=== PATIENT | male | born 1940 | race Caucasian/White ===

== ENCOUNTER 2018-01-30 17:05 | Inpatient (IN) | payer MEDICARE ==
[~2018-01-30] VITALS: Ht 165.1 cm; Wt 91.6 kg
[~2018-01-30 17:05] MED LIST: SPIRIVA18 MCG INH
--- OUTSIDE RECORDS SUMMARY | 2018-01-30 19:06 | XMS REPORT | Clinical Summary ---
Author Author [facility] Organization [facility] Address Unknown Phone Unavailable Care Team Providers Care Headline Writer Name Role Phone Provider, Unknown PCP Unavailable Allergies No Known Allergies Medications End Date Status Medication Sig Dispensed Refills Start Date Active albuterol (PROAIR Inhale 2 0 HFA,PROVENTIL puffs every 6 HFA,VENTOLIN HFA) 90 (six) hours mcg/actuation inhaler as needed for wheezing. Active tiotropium (SPIRIVA) 18 Place 1 0 mcg per inhalation capsule into capsule inhaler and inhale daily. Active budesonide-formoterol Inhale 2 0 (SYMBICORT) 160-4.5 puffs 2 (two) mcg/actuation inhaler times a day. Active bimatoprost (LUMIGAN) Administer 1 0 0.01 % ophthalmic drops drop to the right eye nightly. Active Problems Problem Noted Date Unstable angina 08/18/2016 Acute exacerbation of chronic obstructive pulmonary disease (COPD) 08/18/2016 Social History Date Tobacco Use Types Packs/Day Years Used Current Every Day Smoker Alcohol Use Drinks/Week oz/Week Comments Yes 3 Standard 1.8 drinks or equivalent Sex Assigned at Date Recorded Not on file Industry Job Start Date Occupation Not on file Not on file Not on file Travel End Travel History Travel Start No recent travel history available. Last Filed Vital Signs Not on file Plan of Treatment Health Maintenance Due Date Last Done Comments SHINGLES VACCINES (1 of 10/04/1989 2) PNEUMOCOCCAL 10/04/2004 POLYSACCHARIDE VACCINE AGE 65 AND OVER PNEUMOCOCCAL-13 10/04/2004 INFLUENZA VACCINE 09/13/2017 Results Not on fileafter 01/29/2017 Insurance Payer Benefit Subscriber ID Type Phone Address Plan / Group MEDICARE MEDICARE xxxxxxxxxx Medicare [place], [place] PART A AND B BCBS MEDICARE BLUE xxxxxxxxx HMO MEDICARE ADVANTAGE HMO Advance Directives Patient has advance care planning documents on file. For more information, richelle roberson contact: [facility] [address] [place] [address]
[2018-01-30 20:00] VITALS: BP 148/65
[2018-01-30 20:05] VITALS: BP 148/65
--- NOTE | 2018-01-30 20:05 | NUR ---
PT ARRIVING TO UNIT VIA WHEEL CHAIR, PT ALERT AND ORIENTED, NO DISTRESS NOTED, O2 NC WORN, PT HAS SOB WITH EXERTION, GIRLFRIEND AT BEDSIDE, PT DENIES NEEDS, CALL LIGHT IN REACH, INSTRUCTED TO CALL WITH NEEDS
[2018-01-30] MEDS ORDERED: ZOLPIDEM TARTRATE 5 MG TAB PO PRN (20:15)
[2018-01-30] MEDS: ALBUTEROL SULF 0.083% NEB SOLN 3 ML NEB NEB PRN (20:15)
[2018-01-30] MEDS: METHYLPREDNISOLONE SOD SUCC 125 MG/2ML VIAL IV SCH (21:00)
[2018-01-30] MEDS ORDERED: DOXYCYCLINE HYCLATE 100 MG in SODIUM CHLORIDE 0.9% 100 ML 100 ML IV SCH (21:00)
[2018-01-30] MEDS: METOPROLOL TARTRATE 25 MG TAB PO SCH (21:00)
--- NOTE | 2018-01-30 21:54 | Diagnostic Imaging Report ---
CHEST 2 VIEWS, Technique: CHEST 2 VIEWS Comparison: None Clinical history: COPD exacerbation DISCUSSION: Normal heart size. Prominent tab which may be related to pulmonary arterial hypertension. Hyperinflation with multifocal opacities for example at the lung bases and right middle lobe/lingula. No significant effusion. No pneumothorax. IMPRESSION: Emphysema with multifocal pneumonia. Recommend 6-8 week follow-up. Signed by: Dr Haleigh Silva MD on 01/30/2018 9:50 PM
[2018-01-30 22:00] LABS: BASOPHILS % 0.3 % (0.0-1.0); EOSINOPHILS # (AUTO) 0.2 (0.0-0.4); HEMATOCRIT 38.1 % (38.2-49.6); HEMOGLOBIN 11.7 g/dL (14.0-18.0); LYMPHOCYTES % 21.2 % (18.0-39.1); MEAN CORPUSCULAR HGB CONC 30.7 g/dL (31-35); MEAN CORPUSCULAR VOLUME 91.1 fL (81-99); MONOCYTES # (AUTO) 0.8 (0.2-0.8); NEUTROPHILS # (AUTO) 6.5 (2.1-6.9); NEUTROPHILS % 68.1 % (38.7-80.0); PLATELET COUNT 371 x10e3/uL (140-360); RED BLOOD COUNT 4.18 x10e6/uL (4.3-5.7); RED CELL DISTRIBUTION WIDTH 14.8 % (11.7-14.4)
[2018-01-30 22:20] LABS: ALANINE AMINOTRANSFERASE 18 IU/L (0-55); ALBUMIN 2.8 g/dL (3.5-5.0); ALBUMIN/GLOBULIN RATIO 0.7 (0.8-2.0); ALKALINE PHOSPHATASE 87 IU/L (40-150); ANION GAP 15.4 mmol/L (8-16); BLOOD UREA NITROGEN 17 mg/dL (7-26); BUN/CREATININE RATIO 19 (6-25); CALCIUM 9.7 mg/dL (8.4-10.2); CARBON DIOXIDE 33 mmol/L (22-29); CHLORIDE 97 mmol/L (98-107); CREATININE, SERUM 0.91 mg/dL (0.72-1.25); EST GLOMERULAR FILTRATION RATE > 60 ML/MIN (60-); GLUCOSE 92 mg/dL (74-118); POTASSIUM 4.4 mmol/L (3.5-5.1); SODIUM 141 mmol/L (136-145)
[2018-01-30] MEDS ORDERED: SODIUM CHLORIDE 0.9% 100 ML 100 ML ONE (22:36)
[2018-01-31] VITALS (8 sets, daily range): BP systolic 95–138; BP diastolic 50–88
--- NOTE | 2018-01-31 06:35 | NUR ---
PT RESTING IN BED ALERT AND ORIENTED, NO DISTRESS NOTED, DENIES NEEDS, CALL LIGHT IN REACH, O2 NC WORN HOB ELEVATED, INSTRUCTED TO CALL WITH NEEDS
[2018-01-31] MEDS: BUDESONIDE/FORMOTEROL 160/4.5MCG INHALER INH SCH ×2 (07:30→19:00)
[2018-01-31] MEDS: TIOTROPIUM 18 MCG INH POWDER INH SCH (07:30)
[2018-01-31] MEDS ORDERED: CEFTRIAXONE SOD 1 GM VIAL IV SCH (08:15)
[2018-01-31] MEDS ORDERED: ALBUTEROL SULFATE HFA 8GM INHALATION AEROSOL INH PRN (08:30)
[2018-01-31] MEDS ORDERED: SODIUM CHLORIDE 0.9% 50ML 50 ML ONE ×2 (09:25→17:29)
[2018-01-31] MEDS: CEFTRIAXONE SOD 1 GM/NS 50 ML 50 ML IV SCH ×2 (09:36→21:19)
[2018-01-31] MEDS: METOPROLOL TARTRATE 25 MG TAB PO SCH ×2 (09:36→17:10)
[2018-01-31] MEDS: METHYLPREDNISOLONE SOD SUCC 125 MG/2ML VIAL IV SCH ×2 (09:36→21:15)
--- NOTE | 2018-01-31 09:38 | History and Physical ---
CHIEF COMPLAINT: Congestion and difficulty breathing. HISTORY OF PRESENT ILLNESS: The patient is a 77-year-old man. He has a history of COPD. Uses oxygen at home, as well as Symbicort and Spiriva. Over the past several days to weeks he has noticed increased congestion. He went to see his primary physician and received some antibiotics along with some prednisone with only temporary relief. He also started using his nebulizer more frequently at home with no improvement. PAST MEDICAL HISTORY 1. COPD. 2. Hypertension. 3. Paroxysmal atrial fibrillation. ALLERGIES: THERE ARE NO KNOWN DRUG ALLERGIES. PAST SURGICAL HISTORY: Noncontributory. SOCIAL HISTORY: The patient is a former smoker. He is not an active drinker. FAMILY HISTORY: Noncontributory. REVIEW OF SYSTEMS: The patient reports some fevers at home. He does not complain of headache. He does note some rhinorrhea. He has no sore throat. He notes some cough and congestion. He reports increased dyspnea. He has no chest pain. He is not having any abdominal pain. There is no nausea or vomiting. He has no leg edema. He is not having any focal neurological complaints. PHYSICAL EXAMINATION VITALS: The patient is afebrile. Pulse ox is 98% on 5 L and the pulse rate is 88. The respiratory rate is 18. HEENT: Shows no facial swelling or erythema. The nasal mucosa is normal. The oropharynx is normal. LYMPHATIC: Shows no submandibular, cervical or supraclavicular adenopathy. CARDIAC: Reveals a regular rate and rhythm with a normal S1 and S2. There are no murmurs or rubs. LUNGS: Auscultation of the lungs reveal some rhonchus breath sounds bilaterally. There is some wheezing. ABDOMEN: Soft and nontender. There is no rebound or guarding. EXTREMITIES: Shows no leg edema or calf tenderness. There is no cyanosis or clubbing. SKIN: Shows no rashes. NEUROLOGIC: Shows no focal abnormalities. LABORATORY DATA: The sodium is 141, potassium is 4.4, carbon dioxide 33, and the BUN to creatinine ratio is 17 to 0.9. The albumin is 2.8. White blood cell count is 9.5 and hemoglobin is 11.7. Platelet count is 371,000. RADIOGRAPHIC DATA: Chest x-ray shows emphysema with multifocal pneumonia. IMPRESSION 1. Community-acquired pneumonia with sepsis on admission. 2. Chronic obstructive pulmonary disease with acute exacerbation. 3. Benign prostatic hypertrophy. 4. Hypertension. 5. Anemia, unspecified. PLAN 1. The patient will continue antibiotics for community-acquired pneumonia. 2. Solu-Medrol 60 mg IV q.12 h. 3. Bronchodilators. 4. Legionella antigen. 5. Nasal swab for influenza. Job#: [id number] RI
[2018-01-31] MEDS: AZITHROMYCIN 500MG/NS 250 ML 250 ML IV SCH (10:10)
[2018-01-31] MEDS: ALBUTEROL SULF 0.083% NEB SOLN 3 ML NEB NEB PRN (15:40)
[2018-01-31 15:42] LABS: BILIRUBIN,URINE NEGATIVE (NEGATIVE); CLARITY,URINE SL CLOUDY (CLEAR); COLOR,URINE YELLOW (YELLOW); KETONES,URINE NEGATIVE (NEGATIVE); LEUKOCYTE ESTERASE ,URINE NEGATIVE (NEGATIVE); NITRITE,URINE NEGATIVE (NEGATIVE); PROTEIN,URINE DIPSTICK NEGATIVE (NEGATIVE); URINE UROBILINOGEN 1 mg/dL (0.2 - 1)
[2018-01-31 15:51] LABS: BACTERIA,URINE MODERATE /HPF; EPITHELIAL CELLS,URINE FEW /LPF
--- NOTE | 2018-01-31 16:12 | Diagnostic Imaging Report ---
EXAM: CT Chest WITH contrast INDICATION: Shortness of breath/pneumonia COMPARISON: 01/30/2018 radiograph, no report available TECHNIQUE: The Chest was scanned utilizing a multidetector helical scanner after administration of IV contrast. Coronal and sagittal reformations were obtained. IV CONTRAST: 100 mL Isovue-370 COMPLICATIONS: None RADIATION DOSE: Total DLP: 583 mGy*cm Estimated effective dose: (DLP x 0.015 x size factor) mSv CTDIvol has been reviewed. It is below the limits set by the Radiation Protocol Committee (RPC). Appropriate CT dose reduction techniques were utilized. FINDINGS: Lines and Tubes: None. Lower Neck: No acute findings. Heart and Great Vessels: The aorta and main pulmonary artery measure 36 and 30 mm. respectively. Advanced vascular calcifications. No pericardial effusion. Lymph Nodes: No suspicious adenopathy. Lungs: No pneumothorax. Trachea and central bronchi are unremarkable. There is mild scattered peripheral bronchial wall thickening. Moderate centrilobular emphysematous changes are present. Scattered bilateral patchy alveolar opacities are present in all 5 lobes. Minimal mucus present in the trachea. Upper abdomen: Nodularity left adrenal gland. Bones and Soft Tissues: No acute findings. IMPRESSION: 1. Scattered bilateral alveolar opacities suggesting multifocal pneumonia superimposed on moderate emphysematous changes. Signed by: Dr. Carter Brandon MD on 01/31/2018 4:09 PM
--- NOTE | 2018-01-31 17:02 | NUR ---
Nutrition Screen Note RD Recommendation for Physician: -Continue cardiac diet as tolerated -Pt is not interested in diet education. 01/31 Plan of Care: RD following, monitoring for tolerance and adequacy Nutrition reason for involvement: MD consult no reason stated Primary Diagnose(s): 1. Community-acquired pneumonia with sepsis on admission. 2. Chronic obstructive pulmonary disease with acute exacerbation. PMH: COPD, HTN, A fib Ht: 65in Wt: 220lb BMI: 36.6kg/m2 IBW: 130lb RD Assessment: (01/31) Chart reviewed. Labs and meds reviewed. 77 yo M, who is admitted for cough and breathing difficulty. Visited pt in the room. Pt reports good appetite with ~100% recorded meal intake. No GI complains noted. LBM 01/29, normal per pt. Pt denies any chewing or swallowing difficulty. No recent weight loss reported. Pt is not interested in any diet education. Will continue to monitor and follow. Current Diet: cardiac diet Malnutrition Evaluation (01/31/2018) The patient does not meet criteria for a specified degree of malnutrition at this time. Will re-evaluate at follow-up as appropriate. Diet Education Needs Assessment: Diet education indicated, pt is not interested. Nutrition Care Level: low Signed: Donna Montanez, MS, RD, LD
[2018-01-31] MEDS ORDERED: IOPAMIDOL 370 MG/ML 200 ML INFUS..BTL INJ ONE (17:30)
[2018-02-01] VITALS (8 sets, daily range): BP systolic 103–135; BP diastolic 54–63
[2018-02-01] MEDS: TIOTROPIUM 18 MCG INH POWDER INH SCH (06:00)
[2018-02-01] MEDS: BUDESONIDE/FORMOTEROL 160/4.5MCG INHALER INH SCH ×2 (07:00→20:10)
--- NOTE | 2018-02-01 07:15 | NUR ---
REPORT GIVEN TO ONCOMING NURSE.PT RESTING IN BED WITH NO S/S OF DISTRESS.
[2018-02-01] MEDS ORDERED: TAMSULOSIN HCL 0.4 MG CAP PO ONE (08:00)
--- NOTE | 2018-02-01 08:14 | Consultation ---
DATE OF CONSULTATION: February 01, 2018 UROLOGY CONSULTATION REASON FOR CONSULTATION: Urinary frequency. HISTORY OF PRESENT ILLNESS: Manav Nelson is a 77-year-old man who has never seen a urologist. The patient has some decreased urinary force of stream, and was treated with a blue pill by the [place] for prostate enlargement. The pill did not do anything for him and he quit it. He also failed getting any relief from lzhc-woj-[id number] prostate "medications." The patient denies urinary incontinence. He does have nocturia. The patient is currently admitted for COPD exacerbation. Urological consultation was sought for his voiding symptomatology. PAST MEDICAL AND SURGICAL HISTORY 1. 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 2. COPD. 3. Hypertension. 4. Paroxysmal atrial fibrillation. 5. Coronary artery disease, status post PTCA and stent. ALLERGIES: NONE KNOWN. CURRENT MEDICATIONS: Refer to the MAR. SOCIAL HISTORY: The patient was an extremely heavy smoker of 2-3 packs per day for over 50 years. He smokes much less now. He denies ethanol and drug use. 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 He also served 2 years in [employer]. FAMILY HISTORY: Noncontributory to the active urological problems. REVIEW OF SYSTEMS: As discussed above in the history of present illness and past medical history. Otherwise, negative for all other systems. PHYSICAL EXAMINATION GENERAL: A very pleasant 77-year-old man lying in bed in no apparent distress. VITALS: He is currently afebrile. Vital signs are currently stable. ABDOMEN: Soft, nondistended and nontender. It is obese without costovertebral angle tenderness. Kidneys are not palpable without hepatosplenomegaly. No obvious evidence of hernia. GENITOURINARY: Testes are descended bilaterally. Testes are bilaterally nontender without any mass. The patient has a normal uncircumcised male phallus with normal meatus without any lesions. There is clear yellow urine in the urinal next to the bed. There is a small sebaceous cyst in the perineum, but does not involve the scrotum. For the remaining physical examination systems, please refer to the admission history and physical on the chart. LABORATORY STUDIES: Blood cultures are negative so far. White blood cell count is 9490, hemoglobin 11.7 and platelets 371,000. The patient's creatinine is 0.91. Urinalysis significant for 2+ glucose and "moderate" bacteria, but there is no wbcs and no rbcs. The patient's glucose was normal on BMP. There is no urologically specific imaging in the electronic medical record at this time. The patient does have left adrenal nodularity. ASSESSMENT 1. Urinary frequency. 2. Decreased urinary force of stream. 3. Presumed BPH. 4. Nocturia. 5. Obesity. 6. Small sebaceous cyst in the perineum. 7. Anemia. 8. Glycosuria. 9. Possible urinary tract infection with bacteruria noted. 10. Left adrenal nodularity. PLAN 1. I will start the patient on Flomax. 2. I will order a urine culture. 3. Once the patient leaves, I have instructed him to follow up to see me in about a month for a flow rate in our office at which point in time will begin assessing the patient's voiding objectively. Thank you very much for involving us in the care of your patient. Will be happy to follow him along with you, as well as an outpatient. Job#: [id number] ANA
[2018-02-01] MEDS: METOPROLOL TARTRATE 25 MG TAB PO SCH ×2 (08:54→17:14)
[2018-02-01] MEDS: CEFTRIAXONE SOD 1 GM/NS 50 ML 50 ML IV SCH ×2 (08:54→20:52)
[2018-02-01] MEDS: METHYLPREDNISOLONE SOD SUCC 125 MG/2ML VIAL IV SCH ×2 (08:54→20:50)
[2018-02-01] MEDS: AZITHROMYCIN 500MG/NS 250 ML 250 ML IV SCH (09:18)
--- NOTE | 2018-02-01 10:30 | NUR ---
pt complaints fo fpain 04/22 to the right upper chest . not radiating. pt states he has this pain at home at times and uses nitro tabs for relieve. paging md for further orders
--- NOTE | 2018-02-01 10:39 | NUR ---
SPOKE WITH MD ZARCO REGARDING CP. NEW ORDERS RECEIVED
[2018-02-01] MEDS ORDERED: NITROGLYCERIN 0.4 MG SUBL SL PRN (10:45)
--- NOTE | 2018-02-01 11:07 | NUR ---
PT STATES HIS PAIN AT THIS TIME IS TOLERABLE 3/10 WILL CALL IF NEEDING NITRO AT THIS TIME. EKG DONE. READINGS SHOW SR
--- NOTE | 2018-02-01 19:06 | Consultation ---
DATE OF CONSULTATION: February 01, 2018 CARDIOLOGY CONSULTATION Thank you so much for asking me to see this nice man in consultation. HISTORY OF PRESENT ILLNESS: Mr. Nelson is a complex 77-year-old man who was admitted with a complaint of shortness of breath and chest and abdominal discomfort. The patient reports that he has been feeling ill, short of breath and chest and abdominal discomfort would awake him from sleep, and also especially after coughing. PAST SURGICAL HISTORY: Is long and complex. He tells me that he had a resection of a cancer from the lower lip in December at the [facility] with right neck dissection which also showed malignancies. PAST MEDICAL HISTORY: Also significant for multiple cardiac catheterizations. He reports he had a coronary stent implanted about 10 years ago. More recent cardiac catheterizations 4 or 5 times have shown stable coronary disease which he reports the last one being in [place] in 2017. SOCIAL HISTORY: He continues to smoke. CURRENT MEDICATIONS: At home include albuterol, azithromycin, ceftriaxone, methylprednisolone, metoprolol, nitroglycerin, Spiriva hand inhaler and Ambien. He has reported to have intermittent atrial fibrillation. PHYSICAL EXAMINATION: Shows an alert and oriented, talkative white man. VITALS: Blood pressure is 119/59. HEENT: Shows the right lower lip with healed incisions and deformities. NECK: Shows right neck dissection. THORAX: Heart sounds, S1 and S2 are equal but distant. No murmurs audible. LUNGS: Have distant breath sounds with faint rhonchi. ABDOMEN: Protuberant. Normal bowel sounds. EXTREMITIES: No cyanosis, clubbing or edema. EKG shows sinus rhythm without ST or T-wave changes. Chest x-ray shows emphysematous changes and infiltrates suggesting possible multifocal pneumonia. His echocardiogram on the chart technical report suggests good left ventricular function, mild concentric left ventricular hypertrophy. ASSESSMENT: 1. Chronic obstructive pulmonary disease and pneumonia. 2. Previously known coronary disease with multiple cardiac catheterizations, current chest and abdominal discomfort likely represent musculoskeletal pain associated with his lung disease. PLAN: Will review his studies and monitor him closely with you. His prognosis is guarded. Thank you for asking me to see him in consultation. Job#: [id number]
[2018-02-01] MEDS: ALBUTEROL SULF 0.083% NEB SOLN 3 ML NEB NEB SCH (20:10)
[2018-02-01] MEDS: TAMSULOSIN HCL 0.4 MG CAP PO SCH (20:52)
[2018-02-02] VITALS (7 sets, daily range): BP systolic 123–139; BP diastolic 59–63
[2018-02-02] MEDS: ALBUTEROL SULF 0.083% NEB SOLN 3 ML NEB NEB SCH ×4 (01:20→19:00)
[2018-02-02] MEDS: TIOTROPIUM 18 MCG INH POWDER INH SCH (06:00)
[2018-02-02 06:07] LABS: HEMATOCRIT 36.4 % (38.2-49.6); LYMPHOCYTES % 11.6 % (18.0-39.1); MEAN CORPUSCULAR HEMOGLOBIN 27.2 pg (28-32); MEAN CORPUSCULAR HGB CONC 30.2 g/dL (31-35); MEAN CORPUSCULAR VOLUME 89.9 fL (81-99); MONOCYTES # (AUTO) 0.3 (0.2-0.8); MONOCYTES % 3.1 % (4.4-11.3); NEUTROPHILS # (AUTO) 6.9 (2.1-6.9); NEUTROPHILS % 84.6 % (38.7-80.0); PLATELET COUNT 327 x10e3/uL (140-360); RED BLOOD COUNT 4.05 x10e6/uL (4.3-5.7); RED CELL DISTRIBUTION WIDTH 14.6 % (11.7-14.4)
[2018-02-02 06:23] LABS: ALANINE AMINOTRANSFERASE 25 IU/L (0-55); ALBUMIN 2.6 g/dL (3.5-5.0); ALBUMIN/GLOBULIN RATIO 0.8 (0.8-2.0); ALKALINE PHOSPHATASE 59 IU/L (40-150); ANION GAP 11.7 mmol/L (8-16); BLOOD UREA NITROGEN 20 mg/dL (7-26); BUN/CREATININE RATIO 27 (6-25); CALCIUM 9.2 mg/dL (8.4-10.2); CARBON DIOXIDE 31 mmol/L (22-29); CHLORIDE 98 mmol/L (98-107); CREATININE, SERUM 0.73 mg/dL (0.72-1.25); EST GLOMERULAR FILTRATION RATE > 60 ML/MIN (60-); GLUCOSE 125 mg/dL (74-118); POTASSIUM 4.7 mmol/L (3.5-5.1); SODIUM 136 mmol/L (136-145)
[2018-02-02] MEDS: BUDESONIDE/FORMOTEROL 160/4.5MCG INHALER INH SCH ×2 (07:00→19:00)
--- NOTE | 2018-02-02 07:25 | NUR ---
REPORT GIVEN TO ONCOMING NURSE,WALKING ROUNDS MADE.PT RESTING IN BED WITH NO S/S OF DISTRESS NOTED.
[2018-02-02] MEDS: METHYLPREDNISOLONE SOD SUCC 125 MG/2ML VIAL IV SCH ×2 (09:30→20:40)
[2018-02-02] MEDS: METOPROLOL TARTRATE 25 MG TAB PO SCH ×2 (09:30→16:55)
[2018-02-02] MEDS: AZITHROMYCIN 500MG/NS 250 ML 250 ML IV SCH (09:30)
[2018-02-02] MEDS: CEFTRIAXONE SOD 1 GM/NS 50 ML 50 ML IV SCH ×2 (09:30→20:41)
--- NOTE | 2018-02-02 09:30 | NUR ---
assessment complete no distress noted updated on poc voiced understanding, denies pain at this time, o2 @ 3L nc, l ac 20g no ss of infiltration noted, no other co voiced call light in reach will continue to monitor
--- NOTE | 2018-02-02 11:18 | NUR ---
CASE MANAGEMENT INITIAL ASSESSMENT Facility Mechanic to bedside to discuss plan of care with patient/family. CM/SW role and care transitions discussed. Anticipated discharge plan discussed along with duration of care. CM/SW discussed patients right to make decisions in care. CM/SW work hours given. Patient lives: ALONE Admit/Transfer: DIRECT ADMIT DR Cydney ZARCO POA/Emergency contact: GIRLFRIEND ELVA JACKSON [phone] Current/Previous Home Health:NONE PCP/Follow-up Care: DR Cydney ZARCO Current/Previous DME: WALKER, WHEELCHAIR, ELECTRIC SCOOTER, OXYGEN 24/7 AND NEBULIZER Other Services: NONE Employment Status: SELF EMPLOYED Areas of Concerns: NONE Referral Needs: PULMONARY REHAB Education Needs: WELL EDUCATED ON COPD IMM/TRIPP given and signed (if applicable): TRIPP AND IMM SIGNED Goal for discharge:HOME CM/SW left business card at the bedside with contact information. Name and number was also written on the patients whiteboard. Patient verbalized understanding of discussion. CM will follow-up with ongoing discharge and transition of care needs.
[2018-02-02] MEDS: TAMSULOSIN HCL 0.4 MG CAP PO SCH (20:41)
[2018-02-03] VITALS: BP 138/62
[2018-02-03] MEDS: ALBUTEROL SULF 0.083% NEB SOLN 3 ML NEB NEB SCH ×2 (01:00→07:00)
[2018-02-03 04:00] VITALS: BP 142/66
--- NOTE | 2018-02-03 07:09 | NUR ---
REPORT GIVEN TO ONCOMING NURSE.WALKING ROUNDS MADE.PT RESTING IN BED WITH NO S/S OF DISTRESS.
[2018-02-03] MEDS: BUDESONIDE/FORMOTEROL 160/4.5MCG INHALER INH SCH (07:37)
[2018-02-03] MEDS: TIOTROPIUM 18 MCG INH POWDER INH SCH (07:37)
[2018-02-03] MEDS ORDERED: FLOMAX0.4 MG PO (08:00)
[2018-02-03] MEDS ORDERED: CEFDINIR300 MG PO (08:01)
[2018-02-03] MEDS ORDERED: PREDNISONE10 MG PO (08:03)
[2018-02-03] MEDS: AZITHROMYCIN 500MG/NS 250 ML 250 ML IV SCH (09:00)
[2018-02-03] MEDS: CEFTRIAXONE SOD 1 GM/NS 50 ML 50 ML IV SCH (09:00)
[2018-02-03 09:08] VITALS: BP 118/58
--- NOTE | 2018-02-03 09:36 | Discharge Summary ---
DISCHARGE DIAGNOSES 1. Community-acquired pneumonia with sepsis present on admission. 2. Chronic obstructive pulmonary disease with acute exacerbation. 3. Chest pain, unspecified. 4. Benign prostatic hypertrophy with urinary retention. 5. Hypertension. 6. Anemia, unspecified. CONSULTING PHYSICIANS 1. Dr. Tellez of Cardiology. 2. Dr. Cruz of Urology. RADIOGRAPHIC DATA: CT scan of the chest shows scattered bilateral alveolar opacities suggesting multifocal pneumonia. These changes are superimposed on chronic emphysema. DISCHARGE MEDICATIONS Spiriva 18 mcg by mouth daily. Symbicort 160/4.5 mcg, one puff b.i.d. Omnicef 300 mg p.o. b.i.d. Prednisone tapered. Flomax 0.4 mg p.o. q. day. Albuterol nebulizer as needed. HISTORY OF PRESENT ILLNESS: The patient is a 77-year-old man. He has a history of severe COPD. He uses oxygen at home as well as Symbicort and Spiriva. He noticed increased congestion and wheezing. He received some antibiotics and prednisone from his primary care physician, but only temporary relief. He also tried using nebulizers with only mild relief. HOSPITAL COURSE: The patient was admitted. His x-rays show findings consistent with multifocal pneumonia. He had an elevated pulse rate of 96 to 100 on admission and an elevated respiratory rate of 20 to 24. He was started on IV antibiotics along with bronchodilators and oxygen. He also received Solu-Medrol for COPD exacerbation. The patient complained of urinary retention. He was seen by Urology who diagnosed prostatic hypertrophy with some urinary retention. He will begin Flomax and will follow up with the urologist as an outpatient. The patient also complained of chest pain. He claimed that it was relieved with sublingual nitroglycerin, but was not related to exercise. He was seen by Cardiology. Cardiology did an echocardiogram. It showed some left ventricular hypertrophy and mild valvular abnormalities. EKGs were normal. The patient's prior cardiac workup showed no evidence of coronary artery disease. DISPOSITION: The patient will be discharged home and he will follow up with Dr. Burton in 7 to 10 days. SOPHIE BURTON MD Job#: [id number] SANAM
[2018-02-03 09:44] VITALS: BP 118/58
[2018-02-03] MEDS: METHYLPREDNISOLONE SOD SUCC 125 MG/2ML VIAL IV SCH (09:44)
[2018-02-03] MEDS: METOPROLOL TARTRATE 25 MG TAB PO SCH (09:44)
--- NOTE | 2018-02-03 09:44 | NUR ---
ASSESSMENT COMPLETE NO DISTRESS NOTED, DENIES PAIN AT THIS TIME, L AC 20G NO SS OF INFILTRATION NOTED, NO OTHER CO VOICED CALL LIGHT IN REACH WILL CONTINUE TO MONITOR
--- NOTE | 2018-02-03 09:45 | NUR ---
PT BEING DISCHARGED, PT REFUSED ANTIBIOTICS AT THIS TIME, MD DR ZARCO INFORMED.
== END 2018-02-03 10:30 | disposition home or self-care (01) | DRG 871 ==
LOC: MED/SURG 19:04 → OBSVTOIN 01-31 08:24
PROVIDERS: ADMIT Internal Medicine Critical Care Medicine; ATTEND Internal Medicine Critical Care Medicine
DX: A41.9 Sepsis, unspecified organism (principal); J18.9 Pneumonia, unspecified organism; J44.0 Chronic obstructive pulmonary disease with (acute) lower respiratory infection; J44.1 Chronic obstructive pulmonary disease with (acute) exacerbation; I10 Essential (primary) hypertension; I48.0 Paroxysmal atrial fibrillation; Z87.891 Personal history of nicotine dependence; D64.9 Anemia, unspecified; I25.10 Atherosclerotic heart disease of native coronary artery without angina pectoris; Z95.5 Presence of coronary angioplasty implant and graft; Z85.819 Personal history of malignant neoplasm of unspecified site of lip, oral cavity, and pharynx; N40.1 Benign prostatic hyperplasia with lower urinary tract symptoms; R35.0 Frequency of micturition; R35.1 Nocturia; R39.12 Poor urinary stream; E66.9 Obesity, unspecified; L72.3 Sebaceous cyst; R33.8 Other retention of urine; Z68.33 Body mass index [BMI] 33.0-33.9, adult; R07.9 Chest pain, unspecified
CPT/HCPCS: 36415; 71046; 71260; 80053; 81001; 85025; 87040; 87070; 87086; 87205; 87400; 87449; 93005; 93306; 94640; G0378; J0456; J0696; J2930; Q9967

== ENCOUNTER 2018-08-09 11:00 | Outpatient (RCR) | payer MEDICARE ==
[~2018-08-09 11:00] MED LIST changes: +CEFDINIR300 MG PO; +FLOMAX0.4 MG PO; +LIDOCAINE/PRILOCAINE 2.5-2.5% KIT ONE; +PREDNISONE10 MG PO
[2018-08-09 11:41] LABS: BASOPHILS % 0.4 % (0.0-1.0); EOSINOPHILS # (AUTO) 0.2 (0.0-0.4); EOSINOPHILS % 2.5 % (0.0-6.0); HEMATOCRIT 45.5 % (38.2-49.6); HEMOGLOBIN 14.7 g/dL (14.0-18.0); LYMPHOCYTES # (AUTO) 1.5 (1.0-3.2); LYMPHOCYTES % 21.9 % (18.0-39.1); MEAN CORPUSCULAR HEMOGLOBIN 28.3 pg (28-32); MEAN CORPUSCULAR HGB CONC 32.3 g/dL (31-35); MEAN CORPUSCULAR VOLUME 87.7 fL (81-99); MONOCYTES # (AUTO) 0.6 (0.2-0.8); MONOCYTES % 8.3 % (4.4-11.3); NEUTROPHILS # (AUTO) 4.5 (2.1-6.9); NEUTROPHILS % 66.6 % (38.7-80.0); PLATELET COUNT 170 x10e3/uL (140-360); RED BLOOD COUNT 5.19 x10e6/uL (4.3-5.7); RED CELL DISTRIBUTION WIDTH 16.2 % (11.7-14.4)
[2018-08-09 11:59] LABS: ALANINE AMINOTRANSFERASE 12 IU/L (0-55); ALBUMIN 3.5 g/dL (3.5-5.0); ALBUMIN/GLOBULIN RATIO 1.2 (0.8-2.0); ALKALINE PHOSPHATASE 57 IU/L (40-150); ANION GAP 14.4 mmol/L (8-16); BLOOD UREA NITROGEN 16 mg/dL (7-26); BUN/CREATININE RATIO 21 (6-25); CALCIUM 9.2 mg/dL (8.4-10.2); CARBON DIOXIDE 29 mmol/L (22-29); CHLORIDE 99 mmol/L (98-107); CREATININE, SERUM 0.77 mg/dL (0.72-1.25); EST GLOMERULAR FILTRATION RATE > 60 ML/MIN (60-); GLUCOSE 90 mg/dL (74-118); POTASSIUM 4.4 mmol/L (3.5-5.1); SODIUM 138 mmol/L (136-145)
== END 2018-08-12 ==
LOC: WCC 11:00
PROVIDERS: ATTEND Family Medicine Adult Medicine
DX: S81.801A Unspecified open wound, right lower leg, initial encounter (principal); R60.0 Localized edema; J18.9 Pneumonia, unspecified organism; I10 Essential (primary) hypertension; D64.9 Anemia, unspecified; I25.10 Atherosclerotic heart disease of native coronary artery without angina pectoris; J44.9 Chronic obstructive pulmonary disease, unspecified; W45.8XXA Other foreign body or object entering through skin, initial encounter
CPT/HCPCS: 36415; 80053; 84134; 85025

== ENCOUNTER 2018-09-11 11:24 | Outpatient (RCR) | payer MEDICARE ==
[~2018-09-11 11:24] MED LIST changes: +LIDOCAINE VISC 2% SOLN 15 ML UDC ONE; +MINERAL OIL/PETROLAT/GLYCERI 2OZ CRM ONE; +MINERAL OIL/PETROLAT/GLYCERI 6OZ BTL ONE
== END 2018-09-12 ==
LOC: WCC 11:24
PROVIDERS: ATTEND Family Medicine Adult Medicine
DX: S81.801A Unspecified open wound, right lower leg, initial encounter (principal); R60.0 Localized edema; I10 Essential (primary) hypertension; J44.9 Chronic obstructive pulmonary disease, unspecified; J18.9 Pneumonia, unspecified organism; D64.9 Anemia, unspecified; I25.10 Atherosclerotic heart disease of native coronary artery without angina pectoris; W45.8XXA Other foreign body or object entering through skin, initial encounter

== ENCOUNTER 2019-09-16 09:52 | Emergency (ER) | payer MEDICARE ==
[~2019-09-16] VITALS: Ht 165.1 cm; Wt 91.6 kg
[~2019-09-16 09:52] MED LIST changes: -LIDOCAINE VISC 2% SOLN 15 ML UDC ONE; -LIDOCAINE/PRILOCAINE 2.5-2.5% KIT ONE; -MINERAL OIL/PETROLAT/GLYCERI 2OZ CRM ONE; -MINERAL OIL/PETROLAT/GLYCERI 6OZ BTL ONE
[2019-09-16 10:14] LABS: BASOPHILS % 0.2 % (0.0-1.0); EOSINOPHILS % 0.3 % (0.0-6.0); HEMATOCRIT 43.7 % (38.2-49.6); HEMOGLOBIN 11.7 g/dL (14.0-18.0); LYMPHOCYTES # (AUTO) 1.6 (1.0-3.2); LYMPHOCYTES % 16.1 % (18.0-39.1); MEAN CORPUSCULAR HEMOGLOBIN 26.4 pg (28-32); MEAN CORPUSCULAR HGB CONC 26.8 g/dL (31-35); MEAN CORPUSCULAR VOLUME 98.4 fL (81-99); MONOCYTES % 9.8 % (4.4-11.3); NEUTROPHILS # (AUTO) 7.1 (2.1-6.9); NEUTROPHILS % 73.1 % (38.7-80.0); PLATELET COUNT 193 x10e3/uL (140-360); RED BLOOD COUNT 4.44 x10e6/uL (4.3-5.7); RED CELL DISTRIBUTION WIDTH 15.2 % (11.7-14.4)
--- OUTSIDE RECORDS SUMMARY | 2019-09-16 10:17 | XMS REPORT | Clinical Summary ---
Author Author [facility] Address Unknown Phone Unavailable Care Team Providers Care Principal Systems Engineer Name Role Phone Provider, Unknown PCP Unavailable [...] 08/18/2016 Acute exacerbation of chronic obstructive pulmonary d isease (COPD) 08/18/2016 Social History Date Tobacco Use Types Packs/Day Years Used Current Every Day Smoker Drinks/Week oz/Week Comments Alcohol Use 3 Standard drinks or equivalent 3.0 Yes Sex Assigned at Date Recorded Not on file Industry Job Start Date Occupation Not on file Not on file Not on file Travel End Travel History Travel Start No recent travel history available. Last Filed Vital Signs Not on file Plan of Treatment Health Maintenance Due Date Last Done Comments SHINGLES VACCINES (#1) 10/04/1989 65+ PNEUMOCOCCAL VACCINE 10/04/2004 (1 of 2 - PCV13) INFLUENZA VACCINE 09/14/2019 Results Not on fileafter 09/15/2018 Insurance Type Payer Benefit Subscriber ID Effective Phone Address Plan / Dates Group Medicare MEDICARE MEDICARE xxxxxxxxxx 2015- [place], PART A AND Present [place] B HMO BCBS MEDICARE BLUE xxxxxxxxx 2016-P MEDICARE resent ADVANTAGE HMO Advance Directives For more information, please contact: [phone] Patient Full Roll Inspector Explanation Type Date Recorded Advance Directives, 05/14/2015 1:58 PM Living Will and Medical Power of Foot And Ankle Surgeon Advance Directives, 08/04/2015 4:21 PM Living Will and Medical Power of Foot And Ankle Surgeon Advance Directives, 01/27/2016 11:27 AM Living Will and Medical Power of Foot And Ankle Surgeon Advance Directives, 08/18/2016 9:53 AM Living Will and Medical Power of Foot And Ankle Surgeon
--- OUTSIDE RECORDS SUMMARY | 2019-09-16 10:19 | XMS REPORT | Continuity of Care Document ---
Author Author [facility] t Organization [facility] Address [address] [place] [address] Phone Unavailable Care Team Providers Care Retort Unloader Name Role Phone Tara BONILLA MD PCP SOPHIE ZARCO Attphys Unavailable SOPHIE ZARCO Admphys Unavailable Payers Payer Name Policy Type Policy Number Effective Date Expiration Date Kavita Paz Medicare Replacement [id number] 2017 00:00:00 [facility] Problems Condition Name Condition Details Condition Category Status Onset Date Resolution Date Last Treatment Date Treating Clinician Comments Source Unstable angina Unstable angina Disease Active 2016-08-18 00:00:00 Hung Garza Acute exacerbation of chronic obstructive pulmonary di sease (COPD) Acute exacerbation of chronic obstructive pulmonary disease (COPD) Disease Active 2016-08-18 00:00:00 Hung Garza Allergies, Adverse Reactions, Alerts Allergy Name Allergy Type Status Severity Reaction(s) Onset Date Inacti ve Date Treating Clinician Comments Source No Known Allergies DA Active U 2019-06-07 00:00:00 [facility] No Known Allergies DA Active U 2018-07-19 00:00:00 [facility] nitroglycerin DA Active SV 2008-09-11 00:00:00 [facility] Social History Social Habit Start Date Stop Date Quantity Comments Source Sex Assigned At Joseph ston Denominational Alcohol intake 2016-08-18 00:00:00 2016-08-18 00:00:00 Current drinker of alcohol (finding) Hung Garza Smoking Status Start Date Stop Date Source Current every day smoker 2016-08-18 00:00:00 Joseph Garza Medications Ordered Medication Name Filled Medication Name Start Date Stop Da te Current Medication? Ordering Clinician Indication Dosage Frequency Signature (SIG) Comments Components Source albuterol (PROAIR HFA,PROVENTIL HFA,VENTOLIN HFA) 90 mcg/act uation inhaler 2016-08-18 18:31:50 Yes 2{puff} Q6H Inhale 2 puffs every 6 (six) hours as needed for wheezing. Hung Garza tiotropium (SPIRIVA) 18 mcg per inhalation capsule 2016-08 18:31:50 Yes 1{capsule} QD Place 1 capsule into inhaler and inhale daily. Hung Garza budesonide-formoterol (SYMBICORT) 160-4.5 mcg/actuation inha ler 2016-08-18 18:31:50 Yes 2{puff} Q.5D Inhale 2 puffs 2 (two) times a day. Hung Garza bimatoprost (LUMIGAN) 0.01 % ophthalmic drops 2016-08-18 18:31:5 0 Yes 1[drp] QD Administer 1 drop to the right eye nightly. Hung Garza Cefdinir (Omnicef) 300 Mg Capsule Cefdinir (Omnicef) 300 Mg Capsule Yes 1 Twice A Day [facility] Prednisone 10 Mg Tab Prednisone 10 Mg Tab Yes 10 Use As Directed [facility] Tamsulosin Hcl (Flomax*) 0.4 Mg Cap Tamsulosin Hcl (Flomax*) 0.4 Mg C ap Yes .4 Daily [facility] Tiotropium [place] (Spiriva) 18 Mcg Cap.w.dev Tiotropi um [place] (Spiriva) 18 Mcg Cap.w.dev Yes 18 [facility] Procedures Procedure Date / Time Performed Performing Clinician Moose e Computed tomography of chest with contrast 2018-01-31 00:00:00 H SOPHIE ZULUAGA [facility] X-ray of chest, two views 2018-01-30 00:00:00 SOPHIE ZARCO CH I [facility] Plan of Care Planned Activity Planned Date Details Comments Source Future Scheduled Test 2019-09-14 00:00:00 INFLUENZA VACCINE [code = INFLUENZA VACCINE] Hung Garza Future Scheduled Test 2004-10-04 00:00:00 65+ PNEUMOCOCCAL V ACCINE (1 of 2 - PCV13) [code = 65+ PNEUMOCOCCAL VACCINE (1 of 2 - PCV13)] [facility] 1989-10-04 00:00:00 SHINGLES VACCINES (#1) [code = SHINGLES VACCINES (#1)] Persaud Denominational Encounters Start Date/Time End Date/Time Encounter Type Admission Type Attendi [facility] Care Department Encounter ID Source 2018-09-11 11:24:00 2018-09-12 23:59:00 Discharged Recurring [facility] [id number] [facility] 2018-08-02 11:00:00 2018-08-12 23:59:00 Discharged Recurring [facility] [id number] [facility] 2018-01-31 08:24:00 2018-02-03 10:30:00 Discharged Inpatient 3 SOPHIE ZARCO [facility] [id number] [facility] Results Test Description Test Time Test Comments Results Result Comments Source ARTERIAL BLOOD GAS 2019-07-30 15:43:00 Test Item ARTERIAL BLOOD GAS PH (test code = PHA) 7.259 7.35-7.45 L ARTERIAL BLOOD GAS PCO2 (test code = PCO2A) 58.8 mmHg 35-45 H ARTERIAL BLOOD GAS PO2 (test code = PO2A) 89 mmHg 80-100 N BICARBONATE TOTAL HCO3 (test code = HCO3) 26.5 mmol/L 22.0-26.0 H BASE EXCESS (test code = HARRY) -1.0 mmol/L -4-4 N ABG O2 SATURATION (test code = SATA) 95 % 90-100 N ABG DELIVERY (test code = GWENDOLYN) Cannula ABG TEMPERATURE (test code = TEMPA) 98.0 F ABG SITE (test code = SITEA) R Rad TCO2 ARTERIAL (test code = TCO2A) 28 ARTERIAL BLOOD [id number] 10:01:00* Test Item Value Reference Range Interpretation Comments ARTERIAL BLOOD GAS PH (test code = PHA) 7.193 7.35-7.45 L L ARTERIAL BLOOD GAS PCO2 (test code = PCO2A) 79.8 mmHg 35-45 HH ARTERIAL BLOOD GAS PO2 (test code = PO2A) 24 mmHg 80-100 LL BICARBONATE TOTAL HCO3 (test code = HCO3) 30.7 mmol/L 22.0-26.0 H BASE EXCESS (test code = HARRY) 3.0 mmol/L -4-4 N ABG O2 SATURATION (test code = SATA) 29 % 90-100 L FIO2 (test code = FIO2A) 40 % ABG DELIVERY (test code = GWENDOLYN) Bipap ABG VENT RESP RATE (test code = RRA) 20 /MIN Performed by certified ballast cleaning machine operator at [facility] ABG TEMPERATURE (test code = TEMPA) 37.0 F ABG SITE (test code = SITEA) L Rad PREDICTED AA GRADIENT (test code = AP) 49 PREDICTED PO2 (test code = OP) 140 a/A RATIO (test code = RATIO) 0.13 TCO2 ARTERIAL (test code = TCO2A) 33 A-A GRADIENT (test code = AAGRADE) 166 ARTERIAL BLOOD [id number] 08:08:00* Test Item Value Reference Range Interpretation Comments ARTERIAL BLOOD GAS PH (test code = PHA) 7.241 7.35-7.45 L L ARTERIAL BLOOD GAS PCO2 (test code = PCO2A) 68.2 mmHg 35-45 H ARTERIAL BLOOD GAS PO2 (test code = PO2A) 95 mmHg 80-100 N BICARBONATE TOTAL HCO3 (test code = HCO3) 29.5 mmol/L 22.0-26.0 H BASE EXCESS (test code = HARRY) 2.0 mmol/L -4-4 N ABG O2 SATURATION (test code = SATA) 96 % 90-100 N ABG DELIVERY (test code = GWENDOLYN) Cannula ABG TEMPERATURE (test code = TEMPA) 97.7 F ABG SITE (test code = SITEA) R Rad TCO2 ARTERIAL (test code = TCO2A) 32 COMPREHENSIVE METABOLIC [id number] 09:45:00* Test Item Value Reference Range Interpretation Comments SODIUM (test code = NA) 141 mEq/L 134-147 N POTASSIUM (test code = K) 3.6 mEq/L 3.4-5.0 N CHLORIDE (test code = CL) 104 mEq/L 100-108 N CARBON DIOXIDE (test code = CO2) 33 mEq/L 21-33 N ANION GAP (test code = GAP) 8 0-20 N GLUCOSE (test code = GLU) 111 mg/dL 70-110 H BLOOD UREA NITROGEN (test code = BUN) 32 mg/dL 7-18 H GLOMERULAR FILTRATION RATE (test code = GFR) 108.8 70-80 H Units of measure = ml/min/1.73 m2 CREATININE (test code = CREAT) 0.7 mg/dL 0.6-1.3 TOTAL PROTEIN (test code = PROT) 5.9 g/dL 6.4-8.2 L ALBUMIN (test code = ALB) 2.50 g/dL 3.4-5.0 L CALCIUM (test code = CA) 8.9 mg/dL 8.0-10.5 N BILIRUBIN TOTAL (test code = BILT) 0.2 MG/DL <1.5 SGOT/AST (test code = AST) < 3 IUnit/L 15-37 L SGPT/ALT (test code = ALT) 9 IUnit/L 15-65 L ALKALINE PHOSPHATASE TOTAL (test code = ALKP) 47 IUnit/L 20-125 N [id number] 09:45:00* Test Item Value Reference Range Interpretation Comments PHOSPHOROUS (test code = PHOS) 2.1 MG/DL 2.5-4.9 L [id number] 09:45:00* Test Item Value Reference Range Interpretation Comments MAGNESIUM (test code = MAG) 2.50 mg/dL 1.8-2.4 H CALCIUM [id number] 09:45:00* Test Item Value Reference Range Interpretation Comments CALCIUM IONIZED (test code = FREDDY) 1.27 MMOL/L 1.12-1.32 N COMPREHENSIVE METABOLIC [id number] 07:35:00* Test Item Value Reference Range Interpretation Comments SODIUM (test code = NA) 141 mEq/L 134-147 N POTASSIUM (test code = K) 3.6 mEq/L 3.4-5.0 N CHLORIDE (test code = CL) 104 mEq/L 100-108 N CARBON DIOXIDE (test code = CO2) 33 mEq/L 21-33 N ANION GAP (test code = GAP) 8 0-20 N GLUCOSE (test code = GLU) 111 mg/dL 70-110 H BLOOD UREA NITROGEN (test code = BUN) 32 mg/dL 7-18 H GLOMERULAR FILTRATION RATE (test code = GFR) 108.8 70-80 H Units of measure = ml/min/1.73 m2 CREATININE (test code = CREAT) 0.7 mg/dL 0.6-1.3 TOTAL PROTEIN (test code = PROT) 5.9 g/dL 6.4-8.2 L ALBUMIN (test code = ALB) 2.50 g/dL 3.4-5.0 L CALCIUM (test code = CA) 8.9 mg/dL 8.0-10.5 N BILIRUBIN TOTAL (test code = BILT) 0.2 MG/DL <1.5 SGOT/AST (test code = AST) < 3 IUnit/L 15-37 L SGPT/ALT (test code = ALT) 9 IUnit/L 15-65 L ALKALINE PHOSPHATASE TOTAL (test code = ALKP) 47 IUnit/L 20-125 N [id number] 07:35:00* Test Item Value Reference Range Interpretation Comments PHOSPHOROUS (test code = PHOS) 2.1 MG/DL 2.5-4.9 L [id number] 07:35:00* Test Item Value Reference Range Interpretation Comments MAGNESIUM (test code = MAG) 2.50 mg/dL 1.8-2.4 H CALCIUM [id number] 07:35:00* Test Item Value Reference Range Interpretation Comments CALCIUM IONIZED (test code = FREDDY) MMOL/L 1.12-1.32 CBC W/AUTO [id number] 07:21:00* Test Item Value Reference Range Interpretation Comments WHITE BLOOD CELL (test code = WBC) 10.85 x10 3/uL 4.5-11.0 RED BLOOD CELL (test code = RBC) 3.67 x10 6/uL 4.00-5.60 L HEMOGLOBIN (test code = HGB) 10.3 g/dL 12.5-16.9 L HEMATOCRIT (test code = HCT) 36.3 % 37.5-50.7 L MEAN CELL VOLUME (test code = MCV) 98.9 fL 81.0-99.0 N MEAN CELL HGB (test code = MCH) 28.1 pg 27.0-33.0 N MEAN CELL HGB CONCETRATION (test code = MCHC) 28.4 g/dL 33.0-37. 0 L RED CELL DISTRIBUTION WIDTH CV (test code = RDW) 15.6 % 11.5- 14.5 H RED CELL DISTRIBUTION WIDTH SD (test code = RDW-SD) 56.5 fL 37 .0-54.0 H PLATELET COUNT (test code = PLT) 217 x10 3/uL 150-400 N MEAN PLATELET VOLUME (test code = MPV) 10.8 fL 7.0-9.0 H NEUTROPHIL % (test code = NT%) 85.1 % 56.0-77.0 H IMMATURE GRANULOCYTE % (test code = IG%) 0.5 % 0.0-2.0 N LYMPHOCYTE % (test code = LY%) 8.3 % 14.0-32.0 L MONOCYTE % (test code = MO%) 6.0 % 4.8-9.0 N EOSINOPHIL % (test code = EO%) 0.0 % 0.3-3.7 L BASOPHIL % (test code = BA%) 0.1 % 0.0-2.0 N NUCLEATED RBC % (test code = NRBC%) 0.0 % 0-0 N NEUTROPHIL # (test code = NT#) 9.24 x10 3/uL 2.0-7.6 H IMMATURE GRANULOCYTE # (test code = IG#) 0.05 x10 3/uL 0.00-0.03 H LYMPHOCYTE # (test code = LY#) 0.90 x10 3/uL 1.0-3.8 L MONOCYTE # (test code = MO#) 0.65 x10 3/uL 0.1-0.8 N EOSINOPHIL # (test code = EO#) 0.00 x10 3/uL 0.0-0.2 N BASOPHIL # (test code = BA#) 0.01 x10 3/uL 0.0-0.2 N NUCLEATED RBC # (test code = NRBC#) 0.00 x10 3/uL 0.0-0.1 N MANUAL DIFF REQUIRED (test code = MDIFF) NO PROTHROMBIN [id number] 06:06:00* Test Item Value Reference Range Interpretation Comments PROTHROMBIN TIME PATIENT (test code = PTP) 10.5 SECONDS 9.3-12.9 N INTERNATIONAL NORMAL RATIO (test code = INR) 1.0 0.8-1.2 N TARGET INR BY INDICATION Indication INR1. Prophylaxis of venous thrombosis 2.0 - 3.0 (orthopedic surgery), Prophylaxis of venous thrombosis (other than high-risk surgery), Treatment of Deep Vein Thrombosis/Pulmonary Embolism, Prevention of systemic embolism - Tissue heart valves, Acute Myocardial Infarction (to prevent systemic embolism), Valvular heart disease, Atrial Fibrillation, Bileaflet mechanical valve in aortic position.2. Mechanical prosthetic valves (high risk), 2.5 - 3.5 Presence of Lupus Anticoagulant or Antiphospholipid Antibodies, Prevention of systemic embolism - Acute Myocardial Infarction (to prevent recurrent infarct). COMPREHENSIVE METABOLIC [id number] 06:15:00* Test Item Value Reference Range Interpretation Comments SODIUM (test code = NA) 142 mEq/L 134-147 N POTASSIUM (test code = K) 4.0 mEq/L 3.4-5.0 N CHLORIDE (test code = CL) 99 mEq/L 100-108 L CARBON DIOXIDE (test code = CO2) 42 mEq/L 21-33 H ANION GAP (test code = GAP) 5 0-20 N GLUCOSE (test code = GLU) 116 mg/dL 70-110 H BLOOD UREA NITROGEN (test code = BUN) 20 mg/dL 7-18 H GLOMERULAR FILTRATION RATE (test code = GFR) 160.4 70-80 H Units of measure = ml/min/1.73 m2 CREATININE (test code = CREAT) 0.5 mg/dL 0.6-1.3 L TOTAL PROTEIN (test code = PROT) 6.0 g/dL 6.4-8.2 L ALBUMIN (test code = ALB) 2.40 g/dL 3.4-5.0 L CALCIUM (test code = CA) 8.8 mg/dL 8.0-10.5 N BILIRUBIN TOTAL (test code = BILT) 0.3 MG/DL <1.5 N SGOT/AST (test code = AST) 7 IUnit/L 15-37 L SGPT/ALT (test code = ALT) 11 IUnit/L 15-65 L ALKALINE PHOSPHATASE TOTAL (test code = ALKP) 52 IUnit/L 20-125 N [id number] 06:15:00* Test Item Value Reference Range Interpretation Comments PHOSPHOROUS (test code = PHOS) 2.3 MG/DL 2.5-4.9 L [id number] 06:15:00* Test Item Value Reference Range Interpretation Comments MAGNESIUM (test code = MAG) 2.90 mg/dL 1.8-2.4 H CALCIUM [id number] 06:15:00* Test Item Value Reference Range Interpretation Comments CALCIUM IONIZED (test code = FREDDY) 1.18 MMOL/L 1.12-1.32 N COMPREHENSIVE METABOLIC [id number] 05:52:00* Test Item Value Reference Range Interpretation Comments SODIUM (test code = NA) mEq/L 134-147 POTASSIUM (test code = K) mEq/L 3.4-5.0 CHLORIDE (test code = CL) mEq/L 100-108 CARBON DIOXIDE (test code = CO2) mEq/L 21-33 ANION GAP (test code = GAP) 0-20 GLUCOSE (test code = GLU) mg/dL 70-110 BLOOD UREA NITROGEN (test code = BUN) mg/dL 7-18 GLOMERULAR FILTRATION RATE (test code = GFR) 70-80 CREATININE (test code = CREAT) mg/dL 0.6-1.3 TOTAL PROTEIN (test code = PROT) g/dL 6.4-8.2 ALBUMIN (test code = ALB) g/dL 3.4-5.0 CALCIUM (test code = CA) mg/dL 8.0-10.5 BILIRUBIN TOTAL (test code = BILT) MG/DL <1.5 SGOT/AST (test code = AST) IUnit/L 15-37 SGPT/ALT (test code = ALT) IUnit/L 15-65 ALKALINE PHOSPHATASE TOTAL (test code = ALKP) IUnit/L 20-125 [id number] 05:52:00* Test Item Value Reference Range Interpretation Comments PHOSPHOROUS (test code = PHOS) MG/DL 2.5-4.9 [id number] 05:52:00* Test Item Value Reference Range Interpretation Comments MAGNESIUM (test code = MAG) mg/dL 1.8-2.4 CALCIUM [id number] 05:52:00* Test Item Value Reference Range Interpretation Comments CALCIUM IONIZED (test code = FREDDY) 1.18 MMOL/L 1.12-1.32 N PROTHROMBIN [id number] 05:15:00* Test Item Value Reference Range Interpretation Comments PROTHROMBIN TIME PATIENT (test code = PTP) 11.6 SECONDS 9.3-12.9 N INTERNATIONAL NORMAL RATIO (test code = INR) 1.1 0.8-1.2 N TARGET INR BY INDICATION Indication INR1. Prophylaxis of venous thrombosis 2.0 - 3.0 (orthopedic surgery), Prophylaxis of venous thrombosis (other than high-risk surgery), Treatment of Deep Vein Thrombosis/Pulmonary Embolism, Prevention of systemic embolism - Tissue heart valves, Acute Myocardial Infarction (to prevent systemic embolism), Valvular heart disease, Atrial Fibrillation, Bileaflet mechanical valve in aortic position.2. Mechanical prosthetic valves (high risk), 2.5 - 3.5 Presence of Lupus Anticoagulant or Antiphospholipid Antibodies, Prevention of systemic embolism - Acute Myocardial Infarction (to prevent recurrent infarct). CBC W/AUTO [id number] 05:13:00* Test Item Value Reference Range Interpretation Comments WHITE BLOOD CELL (test code = WBC) 4.95 x10 3/uL 4.5-11.0 RED BLOOD CELL (test code = RBC) 3.58 x10 6/uL 4.00-5.60 L HEMOGLOBIN (test code = HGB) 10.0 g/dL 12.5-16.9 L HEMATOCRIT (test code = HCT) 34.8 % 37.5-50.7 L MEAN CELL VOLUME (test code = MCV) 97.2 fL 81.0-99.0 N MEAN CELL HGB (test code = MCH) 27.9 pg 27.0-33.0 N MEAN CELL HGB CONCETRATION (test code = MCHC) 28.7 g/dL 33.0-37. 0 L RED CELL DISTRIBUTION WIDTH CV (test code = RDW) 15.1 % 11.5- 14.5 H RED CELL DISTRIBUTION WIDTH SD (test code = RDW-SD) 54.1 fL 37 .0-54.0 H PLATELET COUNT (test code = PLT) 187 x10 3/uL 150-400 N MEAN PLATELET VOLUME (test code = MPV) 10.7 fL 7.0-9.0 H NEUTROPHIL % (test code = NT%) 84.2 % 56.0-77.0 H IMMATURE GRANULOCYTE % (test code = IG%) 0.4 % 0.0-2.0 N LYMPHOCYTE % (test code = LY%) 9.7 % 14.0-32.0 L MONOCYTE % (test code = MO%) 5.5 % 4.8-9.0 N EOSINOPHIL % (test code = EO%) 0.0 % 0.3-3.7 L BASOPHIL % (test code = BA%) 0.2 % 0.0-2.0 N NUCLEATED RBC % (test code = NRBC%) 0.0 % 0-0 N NEUTROPHIL # (test code = NT#) 4.17 x10 3/uL 2.0-7.6 N IMMATURE GRANULOCYTE # (test code = IG#) 0.02 x10 3/uL 0.00-0.03 N LYMPHOCYTE # (test code = LY#) 0.48 x10 3/uL 1.0-3.8 L MONOCYTE # (test code = MO#) 0.27 x10 3/uL 0.1-0.8 N EOSINOPHIL # (test code = EO#) 0.00 x10 3/uL 0.0-0.2 N BASOPHIL # (test code = BA#) 0.01 x10 3/uL 0.0-0.2 N NUCLEATED RBC # (test code = NRBC#) 0.00 x10 3/uL 0.0-0.1 N MANUAL DIFF REQUIRED (test code = MDIFF) NO - XR CHEST 1 [id number] 05:12:00 FAX: Kyree Foreman MD [place]: St: [facility] FAX: Alden Rendon [phone] Name: AARON DAVID [facility] : 1940 Age/S: 78/M [address] [place] [address] Unit #: [id number] Loc: [id number] [place] [address] Phys: Kyree Foreman MD Acct: [id number] Dis Date: Status: ADM IN PHONE #: [phone] Exam Date: 07/25/2019511 FAX #: [phone] Reason: pneumonia EXAMS: CPT CODE: [id number] XR CHEST 1 V 03086 Study: - XR CHEST 1 V 07/25/2019 5:00 AM Patient Name: AARON DAVID MR: [id number] : 1940; Age: 78 years y/o Male Ordering Physician: Kyree Foreman MD Clinical Indication: pneumonia Comparison: 07/24/2019 FINDINGS LUNGS: Mildly increasing pulmonary inflation again associated with mild central pulmonary vascular congestion and subtle hazy opacity in both lungs suggesting subsegmental atelectasis versus mild dependent pulmonary edema. No pleural effusion or pneumothorax. HEART AND MEDIASTINUM: Sta ble heart size at the upper limits of normal. LINES: None. OSSEOUS STRUCTURES: No fracture, dislocation, or suspicious focal osseous lesion. OTHER: None. IMPRESSI ON: Mildly increasing pulmonary inflation again associated wit h mild central pulmonary vascular congestion and subtle hazy opacity in both lungs suggesting subsegmental atelectasis versus mild dependent pulmonary edema. Stable heart size at the upper limits of normal. SL: TPAINTER-H PAGE 1 Signed Report (CONTINUED) FAX: Kyree Neri MD [place]: St: ADM FAX: Emmanuel Rendon [facility] [phone] Name: AARON DAVID [facility] [place] : 1940 Age/S: 78/M [address] [place] [address] Unit #: [id number] Loc: [address] [address] Phys: Kyree Foreman MD Acct: [id number] Dis Date: Status: ADM IN PHONE #: [phone] Exam Date: 07/25/2019511 FAX #: [phone] Reason: pneumonia EXAMS: CPT CODE: [id number] XR CHEST 1 V 55014 < Continued> at 0512 Reported and signed by: Yobani Figueroa M.D. CC: Kyree Foreman MD; Alden Rendon DO Technologist: RT Ding (R) Trnscrd Date/Time/By: 07/25/2019 (511) : By: [email or web address] Orig Print D/T: S: 07/25/2019 (6833) PAGE 2 Signed Report ARTERIAL BLOOD [id number] 19:46:00* Test Item Value Reference Range Interpretation Comments ARTERIAL BLOOD GAS PH (test code = PHA) 7.327 7.35-7.45 L ARTERIAL BLOOD GAS PCO2 (test code = PCO2A) 85.5 mmHg 35-45 HH ARTERIAL BLOOD GAS PO2 (test code = PO2A) 108 mmHg 80-100 H BICARBONATE TOTAL HCO3 (test code = HCO3) 45.0 mmol/L 22.0-26.0 H BASE EXCESS (test code = HARRY) 19.0 mmol/L -4-4 H ABG O2 SATURATION (test code = SATA) 97 % 90-100 N FIO2 (test code = FIO2A) 50 % ABG DELIVERY (test code = GWENDOLYN) Bipap ABG VENT RESP RATE (test code = RRA) 14 /MIN Performed by certified ballast cleaning machine operator at [facility] ABG TEMPERATURE (test code = TEMPA) 97.9 F ABG SITE (test code = SITEA) R Rad PREDICTED AA GRADIENT (test code = AP) 66 PREDICTED PO2 (test code = OP) 188 a/A RATIO (test code = RATIO) 0.43 TCO2 ARTERIAL (test code = TCO2A) 48 A-A GRADIENT (test code = AAGRADE) 146 [id number] 18:31:00* Test Item Value Reference Range Interpretation Comments TROPONIN-I (test code = TROPI) < 0.015 ng/mL 0.000-0.045 N Negative: <= 0.045 Positive: >= 0.046 Correlation with serial results, other cardiac markers andclinical findings is necessary to determine the clinicalsignificance of this result. Results using different methodologies should not be comparedto one another as quantitative results may vary by method. COMMENTS: 3 troponins total (including troponin done in ED)[id number] 16:24:00* Test Item Value Reference Range Interpretation Comments TROPONIN-I (test code = TROPI) < 0.015 ng/mL 0.000-0.045 N Negative: <= 0.045 Positive: >= 0.046 Correlation with serial results, other cardiac markers andclinical findings is necessary to determine the clinicalsignificance of this result. Results using different methodologies should not be comparedto one another as quantitative results may vary by method. COMMENTS: 3 troponins total (including troponin done in ED)ARTERIAL BLOOD GAS 2019-07-24 14:31:00* Test Item Value Reference Range Interpretation Comments ARTERIAL BLOOD GAS PH (test code = PHA) 7.249 7.35-7.45 L L ARTERIAL BLOOD GAS PCO2 (test code = PCO2A) 96.6 mmHg 35-45 HH ARTERIAL BLOOD GAS PO2 (test code = PO2A) 97 mmHg 80-100 N BICARBONATE TOTAL HCO3 (test code = HCO3) 42.3 mmol/L 22.0-26.0 H BASE EXCESS (test code = HARRY) 15.0 mmol/L -4-4 H ABG O2 SATURATION (test code = SATA) 95 % 90-100 N FIO2 (test code = FIO2A) 50 % ABG DELIVERY (test code = GWENDOLYN) Bipap ABG VENT RESP RATE (test code = RRA) 14 /MIN Performed by certified ballast cleaning machine operator at [facility] ABG TEMPERATURE (test code = TEMPA) 98.4 F ABG SITE (test code = SITEA) R Rad PREDICTED AA GRADIENT (test code = AP) 62 PREDICTED PO2 (test code = OP) 178 a/A RATIO (test code = RATIO) 0.40 TCO2 ARTERIAL (test code = TCO2A) 45 A-A GRADIENT (test code = AAGRADE) 144 ARTERIAL BLOOD [id number] 12:59:00* Test Item Value Reference Range Interpretation Comments ARTERIAL BLOOD GAS PH (test code = PHA) 7.203 7.35-7.45 L L ARTERIAL BLOOD GAS PCO2 (test code = PCO2A) 102.6 mmHg 35-45 HH ARTERIAL BLOOD GAS PO2 (test code = PO2A) 111 mmHg 80-100 H BICARBONATE TOTAL HCO3 (test code = HCO3) 40.4 mmol/L 22.0-26.0 H BASE EXCESS (test code = HARRY) 12.0 mmol/L -4-4 H ABG O2 SATURATION (test code = SATA) 96 % 90-100 N FIO2 (test code = FIO2A) 50 % ABG DELIVERY (test code = GWENDOLYN) Bipap ABG VENT RESP RATE (test code = RRA) 14 /MIN Performed by certified ballast cleaning machine operator at [facility] ABG TEMPERATURE (test code = TEMPA) 98.4 F ABG SITE (test code = SITEA) R Rad PREDICTED AA GRADIENT (test code = AP) 60 PREDICTED PO2 (test code = OP) 173 a/A RATIO (test code = RATIO) 0.48 TCO2 ARTERIAL (test code = TCO2A) 43 A-A GRADIENT (test code = AAGRADE) 123 Coronavirus 2018 nCoV [id number] 11:21:00* Test Item Value Reference Range Interpretation Comments Coronavirus 2019 nCoV Bedside (test code = [id number]) Negative Negative Negative results should be treated as presumptive and, ifinconsistent with clinical signs and symptoms or necessaryfor patient management, should be tested with an alternativemolecular assay. Negative results do not preclude [id number] and should not be used as the sole basis forpatient management decisions. Negative results should beconsidered in the context of a patient's recent exposures,history, presence of clinical signs and symptoms consistentwith COVID-19. Acknowledged? YESB-TYPE NATRIURETIC [id number] 11:17:00* Test Item Value Reference Range Interpretation Comments B-TYPE NATRIURETIC PEPTIDE (test code = BNP) 330.0 PG/ML 0-100 H BASIC METABOLIC [id number] 10:49:00* Test Item Value Reference Range Interpretation Comments SODIUM (test code = NA) mEq/L 134-147 POTASSIUM (test code = K) mEq/L 3.4-5.0 CHLORIDE (test code = CL) mEq/L 100-108 CARBON DIOXIDE (test code = CO2) mEq/L 21-33 ANION GAP (test code = GAP) 0-20 GLUCOSE (test code = GLU) mg/dL 70-110 BLOOD UREA NITROGEN (test code = BUN) mg/dL 7-18 GLOMERULAR FILTRATION RATE (test code = GFR) 70-80 CREATININE (test code = CREAT) mg/dL 0.6-1.3 CALCIUM (test code = CA) mg/dL 8.0-10.5 [id number] 10:49:00* Test Item Value Reference Range Interpretation Comments TROPONIN-I (test code = TROPI) < 0.015 ng/mL 0.000-0.045 N Negative: <= 0.045 Positive: >= 0.046 Correlation with serial results, other cardiac markers andclinical findings is necessary to determine the clinicalsignificance of this result. Results using different methodologies should not be comparedto one another as quantitative results may vary by method. BASIC METABOLIC [id number] 10:49:00* Test Item Value Reference Range Interpretation Comments SODIUM (test code = NA) 143 mEq/L 134-147 N POTASSIUM (test code = K) 4.2 mEq/L 3.4-5.0 N CHLORIDE (test code = CL) 103 mEq/L 100-108 N CARBON DIOXIDE (test code = CO2) 40 mEq/L 21-33 H ANION GAP (test code = GAP) 4 0-20 N GLUCOSE (test code = GLU) 95 mg/dL 70-110 N BLOOD UREA NITROGEN (test code = BUN) 13 mg/dL 7-18 N GLOMERULAR FILTRATION RATE (test code = GFR) 160.4 70-80 H Units of measure = ml/min/1.73 m2 CREATININE (test code = CREAT) 0.5 mg/dL 0.6-1.3 L CALCIUM (test code = CA) 8.9 mg/dL 8.0-10.5 N [id number] 10:49:00* Test Item Value Reference Range Interpretation Comments TROPONIN-I (test code = TROPI) < 0.015 ng/mL 0.000-0.045 N Negative: <= 0.045 Positive: >= 0.046 Correlation with serial results, other cardiac markers andclinical findings is necessary to determine the clinicalsignificance of this result. Results using different methodologies should not be comparedto one another as quantitative results may vary by method. - XR CHEST 1 [id number] 10:42:00 FAX: Daniela Dudley MD [phone] [place]: [employer] [address]: REG Name: [facility] [place] : [birth year] Age/S: 78/M [address] [place] [address] Blvd Unit #: [id number] Loc: [place] [address] Phys: Daniela Dudley MD Acct: [id number] Dis Date: Status: REG ER PHONE #: [phone] Exam Date: 07/24/2019 1035 FAX #: [phone] Reason: SOB EXAMS: CPT CODE: [id number] XR CHEST 1 V 05819 EXAM: XR CHEST 1 VIEW DATE: 07/24/2019 10:16 AM : 1940; Age: 78 years y/o Male INDICATION: SOB COMPARISON: June 08, 2019 TECHNIQU E: AP chest. IMPRESSION: Lines, tubes and reji dware: None. Heart, mediastinum and lungs: The heart size is n ormal for technique. Vascular calcifications are present at the aorta. M inimal central venous congestion. Interval hazy opacities in the lower l ungs, which may represent edema and/or pneumonia. Probable small left p leural effusion. SL: [id number] at 1042 Reported and si gned by: Sherry Rust D.O. CC: Daniela Dudley MD Technologist: Shubham Victoria RT(R) Trnscrd Date/Time/By: 07/24/2019 (1042) : By: [email or web address] Orig Print D/T: S: 07/24/2019 (4264) PAGE 1 Signed Report CBC W/AUTO [id number] 10:39:00* Test Item Value Reference Range Interpretation Comments WHITE BLOOD CELL (test code = WBC) 9.93 x10 3/uL 4.5-11.0 N RED BLOOD CELL (test code = RBC) 3.91 x10 6/uL 4.00-5.60 L HEMOGLOBIN (test code = HGB) 11.0 g/dL 12.5-16.9 L HEMATOCRIT (test code = HCT) 38.9 % 37.5-50.7 N MEAN CELL VOLUME (test code = MCV) 99.5 fL 81.0-99.0 H MEAN CELL HGB (test code = MCH) 28.1 pg 27.0-33.0 N MEAN CELL HGB CONCETRATION (test code = MCHC) 28.3 g/dL 33.0-37. 0 L RED CELL DISTRIBUTION WIDTH CV (test code = RDW) 15.6 % 11.5- 14.5 H RED CELL DISTRIBUTION WIDTH SD (test code = RDW-SD) 56.6 fL 37 .0-54.0 H PLATELET COUNT (test code = PLT) 193 x10 3/uL 150-400 N MEAN PLATELET VOLUME (test code = MPV) 10.2 fL 7.0-9.0 H NEUTROPHIL % (test code = NT%) 73.0 % 56.0-77.0 N IMMATURE GRANULOCYTE % (test code = IG%) 0.6 % 0.0-2.0 N LYMPHOCYTE % (test code = LY%) 15.4 % 14.0-32.0 N MONOCYTE % (test code = MO%) 10.4 % 4.8-9.0 H EOSINOPHIL % (test code = EO%) 0.4 % 0.3-3.7 N BASOPHIL % (test code = BA%) 0.2 % 0.0-2.0 N NUCLEATED RBC % (test code = NRBC%) 0.0 % 0-0 N NEUTROPHIL # (test code = NT#) 7.25 x10 3/uL 2.0-7.6 N IMMATURE GRANULOCYTE # (test code = IG#) 0.06 x10 3/uL 0.00-0.03 H LYMPHOCYTE # (test code = LY#) 1.53 x10 3/uL 1.0-3.8 N MONOCYTE # (test code = MO#) 1.03 x10 3/uL 0.1-0.8 H EOSINOPHIL # (test code = EO#) 0.04 x10 3/uL 0.0-0.2 N BASOPHIL # (test code = BA#) 0.02 x10 3/uL 0.0-0.2 N NUCLEATED RBC # (test code = NRBC#) 0.00 x10 3/uL 0.0-0.1 N MANUAL DIFF REQUIRED (test code = MDIFF) NO CBC W/AUTO [id number] 08:53:00* Test Item Value Reference Range Interpretation Comments WHITE BLOOD CELL (test code = WBC) 9.10 x10 3/uL 4.5-11.0 N RED BLOOD CELL (test code = RBC) 3.71 x10 6/uL 4.00-5.60 L HEMOGLOBIN (test code = HGB) 10.6 g/dL 12.5-16.9 L HEMATOCRIT (test code = HCT) 34.4 % 37.5-50.7 L MEAN CELL VOLUME (test code = MCV) 92.7 fL 81.0-99.0 N MEAN CELL HGB (test code = MCH) 28.6 pg 27.0-33.0 N MEAN CELL HGB CONCETRATION (test code = MCHC) 30.8 g/dL 33.0-37. 0 L RED CELL DISTRIBUTION WIDTH CV (test code = RDW) 17.1 % 11.5- 14.5 H RED CELL DISTRIBUTION WIDTH SD (test code = RDW-SD) 58.1 fL 37 .0-54.0 H PLATELET COUNT (test code = PLT) 201 x10 3/uL 150-400 N MEAN PLATELET VOLUME (test code = MPV) 11.0 fL 7.0-9.0 H NEUTROPHIL % (test code = NT%) 91.2 % 56.0-77.0 H IMMATURE GRANULOCYTE % (test code = IG%) 0.8 % 0.0-2.0 N LYMPHOCYTE % (test code = LY%) 5.5 % 14.0-32.0 L MONOCYTE % (test code = MO%) 2.4 % 4.8-9.0 L EOSINOPHIL % (test code = EO%) 0.0 % 0.3-3.7 L BASOPHIL % (test code = BA%) 0.1 % 0.0-2.0 N NUCLEATED RBC % (test code = NRBC%) 0.0 % 0-0 N NEUTROPHIL # (test code = NT#) 8.30 x10 3/uL 2.0-7.6 H IMMATURE GRANULOCYTE # (test code = IG#) 0.07 x10 3/uL 0.00-0.03 H LYMPHOCYTE # (test code = LY#) 0.50 x10 3/uL 1.0-3.8 L MONOCYTE # (test code = MO#) 0.22 x10 3/uL 0.1-0.8 N EOSINOPHIL # (test code = EO#) 0.00 x10 3/uL 0.0-0.2 N BASOPHIL # (test code = BA#) 0.01 x10 3/uL 0.0-0.2 N NUCLEATED RBC # (test code = NRBC#) 0.00 x10 3/uL 0.0-0.1 N MANUAL DIFF REQUIRED (test code = MDIFF) NO BASIC METABOLIC [id number] 07:55:00* Test Item Value Reference Range Interpretation Comments SODIUM (test code = NA) 139 mEq/L 134-147 N POTASSIUM (test code = K) 4.6 mEq/L 3.4-5.0 N CHLORIDE (test code = CL) 103 mEq/L 100-108 N CARBON DIOXIDE (test code = CO2) 32 mEq/L 21-33 N ANION GAP (test code = GAP) 9 0-20 N GLUCOSE (test code = GLU) 136 mg/dL 70-110 H BLOOD UREA NITROGEN (test code = BUN) 30 mg/dL 7-18 H GLOMERULAR FILTRATION RATE (test code = GFR) 108.8 70-80 H Units of measure = ml/min/1.73 m2 CREATININE (test code = CREAT) 0.7 mg/dL 0.6-1.3 N CALCIUM (test code = CA) 8.9 mg/dL 8.0-10.5 N BASIC METABOLIC [id number] 08:34:00* Test Item Value Reference Range Interpretation Comments SODIUM (test code = NA) 139 mEq/L 134-147 N POTASSIUM (test code = K) 5.1 mEq/L 3.4-5.0 H CHLORIDE (test code = CL) 104 mEq/L 100-108 N CARBON DIOXIDE (test code = CO2) 31 mEq/L 21-33 N ANION GAP (test code = GAP) 9 0-20 N GLUCOSE (test code = GLU) 135 mg/dL 70-110 H BLOOD UREA NITROGEN (test code = BUN) 21 mg/dL 7-18 H GLOMERULAR FILTRATION RATE (test code = GFR) 130.0 70-80 H Units of measure = ml/min/1.73 m2 CREATININE (test code = CREAT) 0.6 mg/dL 0.6-1.3 N CALCIUM (test code = CA) 8.7 mg/dL 8.0-10.5 N CBC W/AUTO [id number] 07:39:00* Test Item Value Reference Range Interpretation Comments WHITE BLOOD CELL (test code = WBC) 9.12 x10 3/uL 4.5-11.0 RED BLOOD CELL (test code = RBC) 3.67 x10 6/uL 4.00-5.60 L HEMOGLOBIN (test code = HGB) 10.3 g/dL 12.5-16.9 L HEMATOCRIT (test code = HCT) 34.7 % 37.5-50.7 L MEAN CELL VOLUME (test code = MCV) 94.6 fL 81.0-99.0 N MEAN CELL HGB (test code = MCH) 28.1 pg 27.0-33.0 N MEAN CELL HGB CONCETRATION (test code = MCHC) 29.7 g/dL 33.0-37. 0 L RED CELL DISTRIBUTION WIDTH CV (test code = RDW) 17.0 % 11.5- 14.5 H RED CELL DISTRIBUTION WIDTH SD (test code = RDW-SD) 59.0 fL 37 .0-54.0 H PLATELET COUNT (test code = PLT) 188 x10 3/uL 150-400 N MEAN PLATELET VOLUME (test code = MPV) 10.8 fL 7.0-9.0 H NEUTROPHIL % (test code = NT%) 92.7 % 56.0-77.0 H IMMATURE GRANULOCYTE % (test code = IG%) 0.4 % 0.0-2.0 N LYMPHOCYTE % (test code = LY%) 4.5 % 14.0-32.0 L MONOCYTE % (test code = MO%) 2.3 % 4.8-9.0 L EOSINOPHIL % (test code = EO%) 0.0 % 0.3-3.7 L BASOPHIL % (test code = BA%) 0.1 % 0.0-2.0 N NUCLEATED RBC % (test code = NRBC%) 0.0 % 0-0 N NEUTROPHIL # (test code = NT#) 8.45 x10 3/uL 2.0-7.6 H IMMATURE GRANULOCYTE # (test code = IG#) 0.04 x10 3/uL 0.00-0.03 H LYMPHOCYTE # (test code = LY#) 0.41 x10 3/uL 1.0-3.8 L MONOCYTE # (test code = MO#) 0.21 x10 3/uL 0.1-0.8 N EOSINOPHIL # (test code = EO#) 0.00 x10 3/uL 0.0-0.2 N BASOPHIL # (test code = BA#) 0.01 x10 3/uL 0.0-0.2 N NUCLEATED RBC # (test code = NRBC#) 0.00 x10 3/uL 0.0-0.1 N MANUAL DIFF REQUIRED (test code = MDIFF) NO ARTERIAL BLOOD [id number] 18:33:00* Test Item Value Reference Range Interpretation Comments ARTERIAL BLOOD GAS PH (test code = PHA) 7.440 7.35-7.45 N ARTERIAL BLOOD GAS PCO2 (test code = PCO2A) 53.0 mmHg 35-45 H ARTERIAL BLOOD GAS PO2 (test code = PO2A) 84 mmHg 80-100 N BICARBONATE TOTAL HCO3 (test code = HCO3) 36.0 mmol/L 22.0-26.0 H BASE EXCESS (test code = HARRY) 12.0 mmol/L -4-4 H ABG O2 SATURATION (test code = SATA) 96 % 90-100 N ABG DELIVERY (test code = GWENDOLYN) Cannula ABG TEMPERATURE (test code = TEMPA) 98.6 F ABG SITE (test code = SITEA) R Rad TCO2 ARTERIAL (test code = TCO2A) 38 COMPREHENSIVE METABOLIC [id number] 08:02:00* Test Item Value Reference Range Interpretation Comments SODIUM (test code = NA) 139 mEq/L 134-147 N POTASSIUM (test code = K) 4.9 mEq/L 3.4-5.0 N CHLORIDE (test code = CL) 100 mEq/L 100-108 N CARBON DIOXIDE (test code = CO2) 36 mEq/L 21-33 H ANION GAP (test code = GAP) 8 0-20 N GLUCOSE (test code = GLU) 135 mg/dL 70-110 H BLOOD UREA NITROGEN (test code = BUN) 14 mg/dL 7-18 N GLOMERULAR FILTRATION RATE (test code = GFR) 130.0 70-80 H Units of measure = ml/min/1.73 m2 CREATININE (test code = CREAT) 0.6 mg/dL 0.6-1.3 N TOTAL PROTEIN (test code = PROT) 6.6 g/dL 6.4-8.2 N ALBUMIN (test code = ALB) 2.90 g/dL 3.4-5.0 L CALCIUM (test code = CA) 9.2 mg/dL 8.0-10.5 N BILIRUBIN TOTAL (test code = BILT) 0.5 MG/DL <1.5 N SGOT/AST (test code = AST) 7 IUnit/L 15-37 L SGPT/ALT (test code = ALT) 23 IUnit/L 15-65 N ALKALINE PHOSPHATASE TOTAL (test code = ALKP) 59 IUnit/L 20-125 N LIPID PROFILE (CORONARY RISK)2019-06-08 08:02:00* Test Item Value Reference Range Interpretation Comments TRIGLYCERIDES (test code = TRIG) 50 mg/dL 40-150 N CHOLESTEROL (test code = CHOL) 200 mg/dL <200 CHOLESTEROL/HDL RATIO (test code = CHOLHDL) 2.30 RATIO 3.43-4.97 L RISK ASSOCIATED WITH CHOL/HDL RATIOS: RISK MALE FEMALE1/2 AVERAGE 3.43 3.27AVERAGE 4.97 4.442X AVERAGE 9.55 7.053X AVERAGE 23.39 11.04 NOTE THAT THE REFERENCE VALUE IS RELATEDTO RISK LEVELS RECOMMENDED BY THE NATL.HEART, LUNG, AND BLOOD INST. HDL CHOLESTEROL (test code = HDL) 87.0 mg/dL 32-72 H LIPOPROTEIN LDL (test code = LDL) 101 mg/dL 0-100 H <100 [id number] NEAR OPTIMAL/ABOVE [id number] HIGH>KM=470 VERY HIGH*Guidelines provided by the National Cholesterol EducationProgram Adult Treatment Panel III [id number] 08:02:00* Test Item Value Reference Range Interpretation Comments MAGNESIUM (test code = MAG) 2.90 mg/dL 1.8-2.4 H CBC W/AUTO [id number] 07:44:00* Test Item Value Reference Range Interpretation Comments WHITE BLOOD CELL (test code = WBC) 5.82 x10 3/uL 4.5-11.0 N RED BLOOD CELL (test code = RBC) 3.82 x10 6/uL 4.00-5.60 L HEMOGLOBIN (test code = HGB) 10.7 g/dL 12.5-16.9 L HEMATOCRIT (test code = HCT) 37.0 % 37.5-50.7 L MEAN CELL VOLUME (test code = MCV) 96.9 fL 81.0-99.0 MEAN CELL HGB (test code = MCH) 28.0 pg 27.0-33.0 N MEAN CELL HGB CONCETRATION (test code = MCHC) 28.9 g/dL 33.0-37. 0 L RED CELL DISTRIBUTION WIDTH CV (test code = RDW) 16.6 % 11.5- 14.5 H RED CELL DISTRIBUTION WIDTH SD (test code = RDW-SD) 59.3 fL 37 .0-54.0 H PLATELET COUNT (test code = PLT) 179 x10 3/uL 150-400 N MEAN PLATELET VOLUME (test code = MPV) 10.6 fL 7.0-9.0 H NEUTROPHIL % (test code = NT%) 95.2 % 56.0-77.0 H IMMATURE GRANULOCYTE % (test code = IG%) 0.7 % 0.0-2.0 N LYMPHOCYTE % (test code = LY%) 3.4 % 14.0-32.0 L MONOCYTE % (test code = MO%) 0.7 % 4.8-9.0 L EOSINOPHIL % (test code = EO%) 0.0 % 0.3-3.7 L BASOPHIL % (test code = BA%) 0.0 % 0.0-2.0 N NUCLEATED RBC % (test code = NRBC%) 0.0 % 0-0 N NEUTROPHIL # (test code = NT#) 5.54 x10 3/uL 2.0-7.6 N IMMATURE GRANULOCYTE # (test code = IG#) 0.04 x10 3/uL 0.00-0.03 H LYMPHOCYTE # (test code = LY#) 0.20 x10 3/uL 1.0-3.8 L MONOCYTE # (test code = MO#) 0.04 x10 3/uL 0.1-0.8 L EOSINOPHIL # (test code = EO#) 0.00 x10 3/uL 0.0-0.2 N BASOPHIL # (test code = BA#) 0.00 x10 3/uL 0.0-0.2 N NUCLEATED RBC # (test code = NRBC#) 0.00 x10 3/uL 0.0-0.1 N MANUAL DIFF REQUIRED (test code = MDIFF) NO - XR CHEST 1 [id number] 07:28:00 FAX: Maximiliano Fuchs MD [phone] [place]: St: ADM FAX: Rodríguez Crump DO Name: [facility] [place] : 1940 Age/S: 78/M [address] [place] [address] Unit #: [id number] Loc: G.[address] [place] [address] Phys: Rodríguez Crump DO Acct: [id number] Dis Date: Status: ADM IN PHONE #: [phone] Exam Date: 06/08/2019637 FAX #: [phone] Reason: COPD EXAMS: CPT CODE: [id number] XR CHEST 1 V 25814 Single view chest: HISTORY: COPD FINDINGS: Patchy right lung base infiltrate stable from 06/07/2019. This may be minimal pneumonia or atelectasis. Left lung clear. Heart and mediastinal contour stable. IMPRESSION: Minimal right lung base infiltrate. SL: [id number] at 0728 Reported and signed by: Ricardo Ozuna M.D. CC: Maximiliano Fuchs MD; Rodríguez Crump DO Technologist: Lindsey Duarte, RT(R); Afua Connolly, RT(R) Trnscrd Date/Time/By: 06/08/2019 (727) : By: Ugo Orig Print D/T: S: 06/08/2019 (9224) PAGE 1 Signed Report PROTHROMBIN [id number] 07:05:00* Test Item Value Reference Range Interpretation Comments PROTHROMBIN TIME PATIENT (test code = PTP) 11.9 SECONDS 9.3-12.9 N INTERNATIONAL NORMAL RATIO (test code = INR) 1.1 0.8-1.2 N TARGET INR BY INDICATION Indication INR1. Prophylaxis of venous thrombosis 2.0 - 3.0 (orthopedic surgery), Prophylaxis of venous thrombosis (other than high-risk surgery), Treatment of Deep Vein Thrombosis/Pulmonary Embolism, Prevention of systemic embolism - Tissue heart valves, Acute Myocardial Infarction (to prevent systemic embolism), Valvular heart disease, Atrial Fibrillation, Bileaflet mechanical valve in aortic position.2. Mechanical prosthetic valves (high risk), 2.5 - 3.5 Presence of Lupus Anticoagulant or Antiphospholipid Antibodies, Prevention of systemic embolism - Acute Myocardial Infarction (to prevent recurrent infarct). THROMBOPLASTIN TIME [id number] 07:05:00* Test Item Value Reference Range Interpretation Comments THROMBOPLASTIN TIME PARTIAL (test code = PTT) 30.0 Seconds 25.0-39. 5 N Therapeutic Range: 50.4 - 88.3 Seconds Effective 05/29/2018 [id number] 01:35:00* Test Item Value Reference Range Interpretation Comments TROPONIN-I (test code = TROPI) < 0.015 ng/mL 0.000-0.045 N Negative: <= 0.045 Positive: >= 0.046 Correlation with serial results, other cardiac markers andclinical findings is necessary to determine the clinicalsignificance of this result. Results using different methodologies should not be comparedto one another as quantitative results may vary by method. COMMENTS: 3 troponins total (including troponin done in ED)[id number] 23:17:00* Test Item Value Reference Range Interpretation Comments TROPONIN-I (test code = TROPI) 0.021 ng/mL 0.000-0.045 N Negative: <= 0.045 Positive: >= 0.046 Correlation with serial results, other cardiac markers andclinical findings is necessary to determine the clinicalsignificance of this result. Results using different methodologies should not be comparedto one another as quantitative results may vary by method. COMMENTS: 3 troponins total (including troponin done in ED)UA RFLX MICR CULT IF [id number] 20:18:00* Test Item Value Reference Range Interpretation Comments UA COLOR (test code = COLU) YELLOW YEL/STRAW UA APPEARANCE (test code = APPU) CLEAR CLEAR UA GLUCOSE DIPSTICK (test code = DGLUU) NEGATIVE NEGATIVE UA BILIRUBIN DIPSTICK (test code = BILU) NEGATIVE NEGATIVE UA KETONE DIPSTICK (test code = KETU) NEGATIVE NEGATIVE UA SPECIFIC GRAVITY (test code = SGU) 1.019 1.005-1.030 N UA BLOOD DIPSTICK (test code = LELE) 1+ NEGATIVE A UA PH DIPSTICK (test code = REINALDO) 6.0 5.0-7.0 N UA PROTEIN DIPSTICK (test code = PROU) NEGATIVE NEGATIVE UA UROBILINIOGEN DIPSTICK (test code = URO) 4.0 mg/dL 0.2-1.0 A UA NITRITE DIPSTICK (test code = MARIA ESTHER) NEGATIVE NEGATIVE UA LEUKOCYTE ESTERASE DIPSTICK (test code = LEUU) NEGATIVE NEGA TIVE UA WBC (test code = WBCU) 0-3 WBC/HPF 0-3 UA RBC (test code = RBCU) 11-20 RBC/HPF 0-3 UA WBC NO REFLEX (test code = WBCUCL) 0-3 WBC/HPF 0-3 UA BACTERIA (test code = BACU) NONE SEEN /HPF NONE SEEN UA SQUAMOUS CELLS (test code = SQU) 0-5 /HPF NONE SEEN UA MUCUS (test code = MUCU) 1+ /LPF NONE SEEN Indication for culture: Temperature > 100.4 F Suprapubic PainSpecimen Description: CLEAN CATCHB-TYPE NATRIURETIC [id number] 17:47:00* Test Item Value Reference Range Interpretation Comments B-TYPE NATRIURETIC PEPTIDE (test code = BNP) 175.5 PG/ML 0-100 H - XR CHEST 1 [id number] 17:46:00 FAX: Maximiliano Fuchs MD [phone] [place]: [address]: REG Name: A[facility] : [birth year] Age/S: 78/M [address] [place] [address] Blvd Unit #: [id number] Loc: [place] [address] Phys: Maximiliano Fuchs MD Acct: [id number] Dis Date: Status: REG ER PHONE #: [phone] Exam Date: 06/07/20191739 FAX #: [phone] Reason: SOB EXAMS: CPT CODE: [id number] XR CHEST 1 V 03946 Single view chest: H ISTORY: Short of breath. FINDINGS: Mild accentuation of vascular m arkings in each lung base may be from atelectasis. 2 consolidation.. Hea rt and mediastinal contour stable from 05/21/2019. No pleural effusion or p neumothorax. IMPRESSION: Probable minimal basilar atelectasis. SL: [id number] at 1746 Repor yeison and signed by: Ricardo Ozuna M.D. CC: Maximiliano hernandez MD Technologist: Wanda Espinosa RT(R) Trnscrd Date/Time/By: 06/07/2019 (1745) : By: sloan AMRESETG Orig Print D/T: S: 06/07/2019 (1748) P AGE 1 Signed Report BASIC METABOLIC [id number] 17:35:00* Test Item Value Reference Range Interpretation Comments SODIUM (test code = NA) 143 mEq/L 134-147 N POTASSIUM (test code = K) 4.4 mEq/L 3.4-5.0 N CHLORIDE (test code = CL) 99 mEq/L 100-108 L CARBON DIOXIDE (test code = CO2) 45 mEq/L 21-33 H ANION GAP (test code = GAP) 3 0-20 N GLUCOSE (test code = GLU) 111 mg/dL 70-110 H BLOOD UREA NITROGEN (test code = BUN) 13 mg/dL 7-18 N GLOMERULAR FILTRATION RATE (test code = GFR) 108.8 70-80 H Units of measure = ml/min/1.73 m2 CREATININE (test code = CREAT) 0.7 mg/dL 0.6-1.3 N CALCIUM (test code = CA) 8.8 mg/dL 8.0-10.5 N HEPATIC FUNCTION [id number] 17:35:00* Test Item Value Reference Range Interpretation Comments TOTAL PROTEIN (test code = PROT) 6.3 g/dL 6.4-8.2 L ALBUMIN (test code = ALB) 2.90 g/dL 3.4-5.0 L BILIRUBIN TOTAL (test code = BILT) 0.4 MG/DL <1.5 N BILIRUBIN DIRECT (test code = BILD) 0.10 MG/DL 0.0-0.30 N BILIRUBIN INDIRECT (test code = BILIND) 0.30 MG/DL SGOT/AST (test code = AST) 8 IUnit/L 15-37 L SGPT/ALT (test code = ALT) 23 IUnit/L 15-65 N ALKALINE PHOSPHATASE TOTAL (test code = ALKP) 55 IUnit/L 20-125 N [id number] 17:35:00* Test Item Value Reference Range Interpretation Comments LIPASE (test code = LIP) 57 IUnit/L 73-393 L [id number] 17:35:00* Test Item Value Reference Range Interpretation Comments MAGNESIUM (test code = MAG) 2.50 mg/dL 1.8-2.4 H TSH REFLEX TO [id number] 17:35:00* Test Item Value Reference Range Interpretation Comments TSH REFLEX TO FT4 (test code = TSHREFLEX) 0.46 IU/mL 0.42-5.47 N [id number] 17:35:00* Test Item Value Reference Range Interpretation Comments TROPONIN-I (test code = TROPI) < 0.015 ng/mL 0.000-0.045 N Negative: <= 0.045 Positive: >= 0.046 Correlation with serial results, other cardiac markers andclinical findings is necessary to determine the clinicalsignificance of this result. Results using different methodologies should not be comparedto one another as quantitative results may vary by method. Coronavirus 2019 nCoV [id number] 17:33:00* Test Item Value Reference Range Interpretation Comments Coronavirus 2019 nCoV Bedside (test code = [id number]) Negative Negative Is patient requiring admission or transfer? YIndication for rapid COVID-19 testi ng: Mod Clinical SuspicionINFLUENZA A B 2019-06-07 17:33:00* Test Item Value Reference Range Interpretation Comments INFLUENZA A (test code = FLUAPCR) Negative Negative INFLUENZA B (test code = FLUBPCR) Negative Negative Is patient requiring admission or transfer? YIndication for rapid COVID-19 testi ng: Mod Clinical SuspicionLACTIC ACID 2019-06-07 17:29:00* Test Item Value Reference Range Interpretation Comments LACTIC ACID (test code = LACT) 1.6 mmol/L 0.4-1.9 N BASIC METABOLIC [id number] 17:29:00* Test Item Value Reference Range Interpretation Comments SODIUM (test code = NA) 143 mEq/L 134-147 N POTASSIUM (test code = K) 4.4 mEq/L 3.4-5.0 N CHLORIDE (test code = CL) 99 mEq/L 100-108 L CARBON DIOXIDE (test code = CO2) 45 mEq/L 21-33 H ANION GAP (test code = GAP) 3 0-20 N GLUCOSE (test code = GLU) 111 mg/dL 70-110 H BLOOD UREA NITROGEN (test code = BUN) 13 mg/dL 7-18 N GLOMERULAR FILTRATION RATE (test code = GFR) 108.8 70-80 H Units of measure = ml/min/1.73 m2 CREATININE (test code = CREAT) 0.7 mg/dL 0.6-1.3 N CALCIUM (test code = CA) 8.8 mg/dL 8.0-10.5 N HEPATIC FUNCTION [id number] 17:29:00* Test Item Value Reference Range Interpretation Comments TOTAL PROTEIN (test code = PROT) 6.3 g/dL 6.4-8.2 L ALBUMIN (test code = ALB) 2.90 g/dL 3.4-5.0 L BILIRUBIN TOTAL (test code = BILT) 0.4 MG/DL <1.5 N BILIRUBIN DIRECT (test code = BILD) 0.10 MG/DL 0.0-0.30 N BILIRUBIN INDIRECT (test code = BILIND) 0.30 MG/DL SGOT/AST (test code = AST) 8 IUnit/L 15-37 L SGPT/ALT (test code = ALT) 23 IUnit/L 15-65 N ALKALINE PHOSPHATASE TOTAL (test code = ALKP) 55 IUnit/L 20-125 N [id number] 17:29:00* Test Item Value Reference Range Interpretation Comments LIPASE (test code = LIP) 57 IUnit/L 73-393 L [id number] 17:29:00* Test Item Value Reference Range Interpretation Comments MAGNESIUM (test code = MAG) 2.50 mg/dL 1.8-2.4 H TSH REFLEX TO [id number] 17:29:00* Test Item Value Reference Range Interpretation Comments TSH REFLEX TO FT4 (test code = TSHREFLEX) IU/mL 0.42-5.47 [id number] 17:29:00* Test Item Value Reference Range Interpretation Comments TROPONIN-I (test code = TROPI) < 0.015 ng/mL 0.000-0.045 N Negative: <= 0.045 Positive: >= 0.046 Correlation with serial results, other cardiac markers andclinical findings is necessary to determine the clinicalsignificance of this result. Results using different methodologies should not be comparedto one another as quantitative results may vary by method. CBC W/AUTO [id number] 17:12:00* Test Item Value Reference Range Interpretation Comments WHITE BLOOD CELL (test code = WBC) 8.05 x10 3/uL 4.5-11.0 N RED BLOOD CELL (test code = RBC) 3.67 x10 6/uL 4.00-5.60 L HEMOGLOBIN (test code = HGB) 10.4 g/dL 12.5-16.9 L HEMATOCRIT (test code = HCT) 36.7 % 37.5-50.7 L MEAN CELL VOLUME (test code = MCV) 100.0 fL 81.0-99.0 H MEAN CELL HGB (test code = MCH) 28.3 pg 27.0-33.0 N MEAN CELL HGB CONCETRATION (test code = MCHC) 28.3 g/dL 33.0-37. 0 L RED CELL DISTRIBUTION WIDTH CV (test code = RDW) 16.9 % 11.5- 14.5 H RED CELL DISTRIBUTION WIDTH SD (test code = RDW-SD) 62.7 fL 37 .0-54.0 H PLATELET COUNT (test code = PLT) 185 x10 3/uL 150-400 N MEAN PLATELET VOLUME (test code = MPV) 9.8 fL 7.0-9.0 H NEUTROPHIL % (test code = NT%) 75.8 % 56.0-77.0 N IMMATURE GRANULOCYTE % (test code = IG%) 0.6 % 0.0-2.0 N LYMPHOCYTE % (test code = LY%) 13.8 % 14.0-32.0 L MONOCYTE % (test code = MO%) 8.2 % 4.8-9.0 N EOSINOPHIL % (test code = EO%) 1.5 % 0.3-3.7 N BASOPHIL % (test code = BA%) 0.1 % 0.0-2.0 N NUCLEATED RBC % (test code = NRBC%) 0.0 % 0-0 N NEUTROPHIL # (test code = NT#) 6.10 x10 3/uL 2.0-7.6 N IMMATURE GRANULOCYTE # (test code = IG#) 0.05 x10 3/uL 0.00-0.03 H LYMPHOCYTE # (test code = LY#) 1.11 x10 3/uL 1.0-3.8 N MONOCYTE # (test code = MO#) 0.66 x10 3/uL 0.1-0.8 N EOSINOPHIL # (test code = EO#) 0.12 x10 3/uL 0.0-0.2 N BASOPHIL # (test code = BA#) 0.01 x10 3/uL 0.0-0.2 N NUCLEATED RBC # (test code = NRBC#) 0.00 x10 3/uL 0.0-0.1 N MANUAL DIFF REQUIRED (test code = MDIFF) NO PROTHROMBIN [id number] 08:34:00* Test Item Value Reference Range Interpretation Comments PROTHROMBIN TIME PATIENT (test code = PTP) 12.6 SECONDS 9.3-12.9 N INTERNATIONAL NORMAL RATIO (test code = INR) 1.2 0.8-1.2 N TARGET INR BY INDICATION Indication INR1. Prophylaxis of venous thrombosis 2.0 - 3.0 (orthopedic surgery), Prophylaxis of venous thrombosis (other than high-risk surgery), Treatment of Deep Vein Thrombosis/Pulmonary Embolism, Prevention of systemic embolism - Tissue heart valves, Acute Myocardial Infarction (to prevent systemic embolism), Valvular heart disease, Atrial Fibrillation, Bileaflet mechanical valve in aortic position.2. Mechanical prosthetic valves (high risk), 2.5 - 3.5 Presence of Lupus Anticoagulant or Antiphospholipid Antibodies, Prevention of systemic embolism - Acute Myocardial Infarction (to prevent recurrent infarct). COMPREHENSIVE METABOLIC [id number] 07:52:00* Test Item Value Reference Range Interpretation Comments SODIUM (test code = NA) 144 mEq/L 134-147 N POTASSIUM (test code = K) 3.9 mEq/L 3.4-5.0 N CHLORIDE (test code = CL) 107 mEq/L 100-108 N CARBON DIOXIDE (test code = CO2) 34 mEq/L 21-33 H ANION GAP (test code = GAP) 7 0-20 N GLUCOSE (test code = GLU) 104 mg/dL 70-110 N BLOOD UREA NITROGEN (test code = BUN) 28 mg/dL 7-18 H GLOMERULAR FILTRATION RATE (test code = GFR) 108.8 70-80 H Units of measure = ml/min/1.73 m2 CREATININE (test code = CREAT) 0.7 mg/dL 0.6-1.3 N TOTAL PROTEIN (test code = PROT) 5.9 g/dL 6.4-8.2 L ALBUMIN (test code = ALB) 2.70 g/dL 3.4-5.0 L CALCIUM (test code = CA) 9.1 mg/dL 8.0-10.5 N BILIRUBIN TOTAL (test code = BILT) 0.5 MG/DL <1.5 N SGOT/AST (test code = AST) 38 IUnit/L 15-37 H SGPT/ALT (test code = ALT) 58 IUnit/L 15-65 ALKALINE PHOSPHATASE TOTAL (test code = ALKP) 51 IUnit/L 20-125 N [id number] 07:52:00* Test Item Value Reference Range Interpretation Comments PHOSPHOROUS (test code = PHOS) 2.5 MG/DL 2.5-4.9 N [id number] 07:52:00* Test Item Value Reference Range Interpretation Comments MAGNESIUM (test code = MAG) 2.50 mg/dL 1.8-2.4 H CALCIUM [id number] 07:52:00* Test Item Value Reference Range Interpretation Comments CALCIUM IONIZED (test code = FREDDY) 1.26 MMOL/L 1.12-1.32 N COMPREHENSIVE METABOLIC [id number] 07:31:00* Test Item Value Reference Range Interpretation Comments SODIUM (test code = NA) mEq/L 134-147 POTASSIUM (test code = K) mEq/L 3.4-5.0 CHLORIDE (test code = CL) mEq/L 100-108 CARBON DIOXIDE (test code = CO2) mEq/L 21-33 ANION GAP (test code = GAP) 0-20 GLUCOSE (test code = GLU) mg/dL 70-110 BLOOD UREA NITROGEN (test code = BUN) mg/dL 7-18 GLOMERULAR FILTRATION RATE (test code = GFR) 70-80 CREATININE (test code = CREAT) mg/dL 0.6-1.3 TOTAL PROTEIN (test code = PROT) g/dL 6.4-8.2 ALBUMIN (test code = ALB) g/dL 3.4-5.0 CALCIUM (test code = CA) mg/dL 8.0-10.5 BILIRUBIN TOTAL (test code = BILT) MG/DL <1.5 SGOT/AST (test code = AST) IUnit/L 15-37 SGPT/ALT (test code = ALT) IUnit/L 15-65 ALKALINE PHOSPHATASE TOTAL (test code = ALKP) IUnit/L 20-125 [id number] 07:31:00* Test Item Value Reference Range Interpretation Comments PHOSPHOROUS (test code = PHOS) MG/DL 2.5-4.9 [id number] 07:31:00* Test Item Value Reference Range Interpretation Comments MAGNESIUM (test code = MAG) mg/dL 1.8-2.4 CALCIUM [id number] 07:31:00* Test Item Value Reference Range Interpretation Comments CALCIUM IONIZED (test code = FREDDY) 1.26 MMOL/L 1.12-1.32 N CBC W/AUTO [id number] 07:30:00* Test Item Value Reference Range Interpretation Comments WHITE BLOOD CELL (test code = WBC) 8.46 x10 3/uL 4.5-11.0 N RED BLOOD CELL (test code = RBC) 3.96 x10 6/uL 4.00-5.60 L HEMOGLOBIN (test code = HGB) 11.4 g/dL 12.5-16.9 L HEMATOCRIT (test code = HCT) 36.0 % 37.5-50.7 L MEAN CELL VOLUME (test code = MCV) 90.9 fL 81.0-99.0 N MEAN CELL HGB (test code = MCH) 28.8 pg 27.0-33.0 N MEAN CELL HGB CONCETRATION (test code = MCHC) 31.7 g/dL 33.0-37. 0 L RED CELL DISTRIBUTION WIDTH CV (test code = RDW) 17.3 % 11.5- 14.5 H RED CELL DISTRIBUTION WIDTH SD (test code = RDW-SD) 57.1 fL 37 .0-54.0 H PLATELET COUNT (test code = PLT) 211 x10 3/uL 150-400 N MEAN PLATELET VOLUME (test code = MPV) 11.2 fL 7.0-9.0 H NEUTROPHIL % (test code = NT%) 85.9 % 56.0-77.0 H IMMATURE GRANULOCYTE % (test code = IG%) 0.8 % 0.0-2.0 N LYMPHOCYTE % (test code = LY%) 7.1 % 14.0-32.0 L MONOCYTE % (test code = MO%) 6.1 % 4.8-9.0 N EOSINOPHIL % (test code = EO%) 0.0 % 0.3-3.7 L BASOPHIL % (test code = BA%) 0.1 % 0.0-2.0 N NUCLEATED RBC % (test code = NRBC%) 0.0 % 0-0 N NEUTROPHIL # (test code = NT#) 7.26 x10 3/uL 2.0-7.6 N IMMATURE GRANULOCYTE # (test code = IG#) 0.07 x10 3/uL 0.00-0.03 H LYMPHOCYTE # (test code = LY#) 0.60 x10 3/uL 1.0-3.8 L MONOCYTE # (test code = MO#) 0.52 x10 3/uL 0.1-0.8 N EOSINOPHIL # (test code = EO#) 0.00 x10 3/uL 0.0-0.2 N BASOPHIL # (test code = BA#) 0.01 x10 3/uL 0.0-0.2 N NUCLEATED RBC # (test code = NRBC#) 0.00 x10 3/uL 0.0-0.1 N MANUAL DIFF REQUIRED (test code = MDIFF) NO Novel Coronavirus 2019 [id number] 18:01:00* Test Item Value Reference Range Interpretation Comments Novel Coronavirus 2019 Inhouse (test code = [id number]) NEGATIVE Not Detect. Testing Criteria: OtherOther: repeat test after first negative- DUP VEIN JUJU 2019-05-21 16:14:00 Name: AARON DAVID [facility] [place] : 1940 Age/S: 78 / M [address] [place] [address] Blvd Unit #: [id number] Loc: [place] [address] Phys: Sukhjinder Alarcon MD Acct: [id number] Dis Date: Status: ADM IN PHONE #: [phone] Exam Date: 05/21/2019 1605 FAX #: [phone] Reason: LE edema EXAMS: CPT CODE: [id number] DUP VEIN JUJU [id number] PROCEDURE: BILATERAL LOWER EXTREMITY VENOUS ULTRASOUND INDICATION: 78-year-old male with bilateral lower extremity edema COMPARISON: None. TECHNIQUE: Sonographic evaluation of the bilateral lower extremity veins was performed using high resolution B-mode, pulse and color Doppler imaging. FINDINGS: RIGHT: The common femoral, femoral, popliteal and visualized calf veins are patent. Normal venous waveforms. The saphenofemoral junction is unremarkable. LEFT: The common femoral, femoral, popliteal and visualized calf veins are patent. Normal venous waveforms. The saphenofemoral junction is unremarkable. IMPRESSION: 1. No deep venous thrombosis identified in the bilateral lower extremities. SL: [id number] at 1614 Reported and signed by: Navjot Jo M.D. CC: Rica Grant MD; Sukhjinder Alarcon MD Technologist: Markie Ramsey RDMS(AB) Trnscb Date/Time: 05/21/2019 (1614) [email or web address] Orig Print D/T: S: 05/21/2019 (1617) Probe: PAGE 1 Signed Report - XR CHEST 1 [id number] 07:26:00 FAX: Rica Grant MD [phone] [place]: St: ADM FAX: Unruly Gregorio MD [phone] Name: [facility] [place] : 1940 Age/S: 78/M [address] [place] [address] Unit #: [id number] Loc: [address] [place] [address] Phys: Unruly Chu MD Acct: [id number] Dis Date: Status: ADM IN PHONE #: [phone] Exam Date: 05/21/2019621 FAX #: [phone] Reason: respiratory failure EXAMS: CPT CODE: [id number] XR CHEST 1 V 26128 EXAM: Single view AP chest. EXAM DATE: 05/21/2019 at 0615 hours CLINICAL HISTORY: respiratory failure COMPARISON: May 20, 2019 0823 hours Endotracheal tube and enteric tube tip have been removed. Right-sided jugular catheter tip is in the region of the superior vena cava. Mild vascular congestion is identified bilaterally. No significant changes noted compared to the prior exam. Imaged osseous structures are unremarkable. Cardiomediastinal silhouette is grossly within normal limits. IMPRESSION: Stable bilateral pulmonary opacities. at 0726 Reported and signed by: Halley Davies M.D. CC: Rica Grant MD; Unruly Chu MD Technologist: RT Timur(R) Trnscrd Date/Time/By: 05/21/2019 (725) : By: NatalyaCER Orig Print D/T: S: 05/21/2019 (2832) PAGE 1 Signed Report COMPREHENSIVE METABOLIC [id number] 06:28:00* Test Item Value Reference Range Interpretation Comments SODIUM (test code = NA) 142 mEq/L 134-147 N POTASSIUM (test code = K) 4.1 mEq/L 3.4-5.0 N CHLORIDE (test code = CL) 107 mEq/L 100-108 N CARBON DIOXIDE (test code = CO2) 32 mEq/L 21-33 N ANION GAP (test code = GAP) 7 0-20 N GLUCOSE (test code = GLU) 99 mg/dL 70-110 BLOOD UREA NITROGEN (test code = BUN) 24 mg/dL 7-18 H GLOMERULAR FILTRATION RATE (test code = GFR) 108.8 70-80 H Units of measure = ml/min/1.73 m2 CREATININE (test code = CREAT) 0.7 mg/dL 0.6-1.3 N TOTAL PROTEIN (test code = PROT) 6.4 g/dL 6.4-8.2 N ALBUMIN (test code = ALB) 2.80 g/dL 3.4-5.0 L CALCIUM (test code = CA) 9.1 mg/dL 8.0-10.5 N BILIRUBIN TOTAL (test code = BILT) 0.5 MG/DL <1.5 SGOT/AST (test code = AST) 18 IUnit/L 15-37 SGPT/ALT (test code = ALT) 21 IUnit/L 15-65 ALKALINE PHOSPHATASE TOTAL (test code = ALKP) 57 IUnit/L 20-125 N [id number] 06:28:00* Test Item Value Reference Range Interpretation Comments PHOSPHOROUS (test code = PHOS) 2.7 MG/DL 2.5-4.9 N [id number] 06:28:00* Test Item Value Reference Range Interpretation Comments MAGNESIUM (test code = MAG) 2.50 mg/dL 1.8-2.4 H CALCIUM [id number] 06:28:00* Test Item Value Reference Range Interpretation Comments CALCIUM IONIZED (test code = FREDDY) 1.24 MMOL/L 1.12-1.32 N COMPREHENSIVE METABOLIC [id number] 05:58:00* Test Item Value Reference Range Interpretation Comments SODIUM (test code = NA) 142 mEq/L 134-147 N POTASSIUM (test code = K) 4.1 mEq/L 3.4-5.0 N CHLORIDE (test code = CL) 107 mEq/L 100-108 N CARBON DIOXIDE (test code = CO2) 32 mEq/L 21-33 N ANION GAP (test code = GAP) 7 0-20 N GLUCOSE (test code = GLU) 99 mg/dL 70-110 BLOOD UREA NITROGEN (test code = BUN) 24 mg/dL 7-18 H GLOMERULAR FILTRATION RATE (test code = GFR) 108.8 70-80 H Units of measure = ml/min/1.73 m2 CREATININE (test code = CREAT) 0.7 mg/dL 0.6-1.3 N TOTAL PROTEIN (test code = PROT) 6.4 g/dL 6.4-8.2 N ALBUMIN (test code = ALB) 2.80 g/dL 3.4-5.0 L CALCIUM (test code = CA) 9.1 mg/dL 8.0-10.5 N BILIRUBIN TOTAL (test code = BILT) 0.5 MG/DL <1.5 SGOT/AST (test code = AST) 18 IUnit/L 15-37 SGPT/ALT (test code = ALT) 21 IUnit/L 15-65 ALKALINE PHOSPHATASE TOTAL (test code = ALKP) 57 IUnit/L 20-125 N [id number] 05:58:00* Test Item Value Reference Range Interpretation Comments PHOSPHOROUS (test code = PHOS) 2.7 MG/DL 2.5-4.9 N [id number] 05:58:00* Test Item Value Reference Range Interpretation Comments MAGNESIUM (test code = MAG) 2.50 mg/dL 1.8-2.4 H CALCIUM [id number] 05:58:00* Test Item Value Reference Range Interpretation Comments CALCIUM IONIZED (test code = FREDDY) MMOL/L 1.12-1.32 PROTHROMBIN [id number] 05:51:00* Test Item Value Reference Range Interpretation Comments PROTHROMBIN TIME PATIENT (test code = PTP) 11.9 SECONDS 9.3-12.9 N INTERNATIONAL NORMAL RATIO (test code = INR) 1.1 0.8-1.2 N TARGET INR BY INDICATION Indication INR1. Prophylaxis of venous thrombosis 2.0 - 3.0 (orthopedic surgery), Prophylaxis of venous thrombosis (other than high-risk surgery), Treatment of Deep Vein Thrombosis/Pulmonary Embolism, Prevention of systemic embolism - Tissue heart valves, Acute Myocardial Infarction (to prevent systemic embolism), Valvular heart disease, Atrial Fibrillation, Bileaflet mechanical valve in aortic position.2. Mechanical prosthetic valves (high risk), 2.5 - 3.5 Presence of Lupus Anticoagulant or Antiphospholipid Antibodies, Prevention of systemic embolism - Acute Myocardial Infarction (to prevent recurrent infarct). CBC W/AUTO [id number] 05:42:00* Test Item Value Reference Range Interpretation Comments WHITE BLOOD CELL (test code = WBC) 13.39 x10 3/uL 4.5-11.0 H RED BLOOD CELL (test code = RBC) 4.30 x10 6/uL 4.00-5.60 N HEMOGLOBIN (test code = HGB) 12.0 g/dL 12.5-16.9 L HEMATOCRIT (test code = HCT) 39.1 % 37.5-50.7 N MEAN CELL VOLUME (test code = MCV) 90.9 fL 81.0-99.0 N MEAN CELL HGB (test code = MCH) 27.9 pg 27.0-33.0 N MEAN CELL HGB CONCETRATION (test code = MCHC) 30.7 g/dL 33.0-37. 0 L RED CELL DISTRIBUTION WIDTH CV (test code = RDW) 17.6 % 11.5- 14.5 H RED CELL DISTRIBUTION WIDTH SD (test code = RDW-SD) 57.6 fL 37 .0-54.0 H PLATELET COUNT (test code = PLT) 238 x10 3/uL 150-400 N MEAN PLATELET VOLUME (test code = MPV) 10.6 fL 7.0-9.0 H NEUTROPHIL % (test code = NT%) 92.8 % 56.0-77.0 H IMMATURE GRANULOCYTE % (test code = IG%) 0.7 % 0.0-2.0 N LYMPHOCYTE % (test code = LY%) 3.4 % 14.0-32.0 L MONOCYTE % (test code = MO%) 3.0 % 4.8-9.0 L EOSINOPHIL % (test code = EO%) 0.0 % 0.3-3.7 L BASOPHIL % (test code = BA%) 0.1 % 0.0-2.0 N NUCLEATED RBC % (test code = NRBC%) 0.0 % 0-0 N NEUTROPHIL # (test code = NT#) 12.42 x10 3/uL 2.0-7.6 H IMMATURE GRANULOCYTE # (test code = IG#) 0.10 x10 3/uL 0.00-0.03 H LYMPHOCYTE # (test code = LY#) 0.45 x10 3/uL 1.0-3.8 L MONOCYTE # (test code = MO#) 0.40 x10 3/uL 0.1-0.8 N EOSINOPHIL # (test code = EO#) 0.00 x10 3/uL 0.0-0.2 N BASOPHIL # (test code = BA#) 0.02 x10 3/uL 0.0-0.2 N NUCLEATED RBC # (test code = NRBC#) 0.00 x10 3/uL 0.0-0.1 N MANUAL DIFF REQUIRED (test code = MDIFF) NO [id number] 00:16:00* Test Item Value Reference Range Interpretation Comments GLUBED (test code = GLUBED) 95 MG/DL 70-110 N Performed by certified ballast cleaning machine operator at [facility] [id number] 21:31:00* Test Item Value Reference Range Interpretation Comments GLUBED (test code = GLUBED) 90 MG/DL 70-110 N Performed by certified ballast cleaning machine operator at [facility] Novel Coronavirus 19:52:00* Test Item Value Reference Range Interpretation Comments Novel Coronavirus 2018 nCoV (test code = COVID19) Negative Performed by: [facility] [address] [facility], [address] [place] [address] CLIA#: [id number] Testing Criteria: OtherOther: respiratory symptoms, hypoxia, intubatedCOMMENTS: SwabINFLUENZA A [id number] 19:52:00* Test Item Value Reference Range Interpretation Comments INFLUENZA A (test code = FLUAPCR) Negative Negative INFLUENZA B (test code = FLUBPCR) Negative Negative Testing Criteria: OtherOther: respiratory symptoms, hypoxia, intubatedCOMMENTS: SwabNovel Coronavirus 19:52:00* Test Item Value Reference Range Interpretation Comments Novel Coronavirus 2018 nCoV (test code = COVID19) Negative Performed by: [facility] [address] [address] [place] [address] CLIA#: [id number] Testing Criteria: OtherOther: respiratory symptoms, hypoxia, intubatedCOMMENTS: SwabINFLUENZA A [id number] 19:52:00* Test Item Value Reference Range Interpretation Comments INFLUENZA A (test code = FLUAPCR) Negative Negative INFLUENZA B (test code = FLUBPCR) Negative Negative Testing Criteria: OtherOther: respiratory symptoms, hypoxia, intubatedCOMMENTS: [id number] 12:48:00* Test Item Value Reference Range Interpretation Comments GLUBED (test code = GLUBED) 118 MG/DL 70-110 H Performed by certified ballast cleaning machine operator at [facility] - XR CHEST 1 [id number] 08:59:00 FAX: Rica rGant MD [phone] [place]: St: ADM FAX: Unruly Gregorio MD [phone] Name: AARON DAVID [facility] : 1940 Age/S: 78/M [address] [place] [address] Unit #: [id number] Loc: [address] [address] Phys: Unruly Chu MD Acct: [id number] Dis Date: Status: ADM IN PHONE #: [phone] Exam Date: 05/20/2019856 FAX #: [phone] Reason: respiratory failure EXAMS: CPT CODE: [id number] XR CHEST 1 V 28879 Single view chest: HISTORY: Respiratory failure. FINDINGS: Mild vascular congestion in each lung. No consolidation or pleural fluid. No evidence of pneumothorax. Stable position of right central line, ET tube and NG tube. IMPRESSION: Stable exam SL: [id number] at 0859 Reported and signed by: Ricardo Ozuna M.D. CC: Rica Grant MD; Unruly Chu MD Technologist: Naty Dillon RT(R) Trnscrd Date/Time/By: 05/20/2019 (0859) : By: NatalyaETG Orig Print D/T: S: 05/20/2019 (0902) PAGE 1 Signed Report [id number] 07:37:00 * Test Item Value Reference Range Interpretation Comments GLUBED (test code = GLUBED) 139 MG/DL 70-110 H Performed by certified ballast cleaning machine operator at [facility] [id number] 07:37:00* Test Item Value Reference Range Interpretation Comments GLUBED (test code = GLUBED) 122 MG/DL 70-110 H Performed by certified ballast cleaning machine operator at [facility] COMPREHENSIVE METABOLIC [id number] 06:22:00* Test Item Value Reference Range Interpretation Comments SODIUM (test code = NA) 142 mEq/L 134-147 N POTASSIUM (test code = K) 4.4 mEq/L 3.4-5.0 N CHLORIDE (test code = CL) 111 mEq/L 100-108 H CARBON DIOXIDE (test code = CO2) 28 mEq/L 21-33 N ANION GAP (test code = GAP) 7 0-20 N GLUCOSE (test code = GLU) 154 mg/dL 70-110 H BLOOD UREA NITROGEN (test code = BUN) 24 mg/dL 7-18 H GLOMERULAR FILTRATION RATE (test code = GFR) 130.0 70-80 H Units of measure = ml/min/1.73 m2 CREATININE (test code = CREAT) 0.6 mg/dL 0.6-1.3 N TOTAL PROTEIN (test code = PROT) 6.1 g/dL 6.4-8.2 L ALBUMIN (test code = ALB) 2.70 g/dL 3.4-5.0 L CALCIUM (test code = CA) 8.8 mg/dL 8.0-10.5 N BILIRUBIN TOTAL (test code = BILT) 0.3 MG/DL <1.5 N SGOT/AST (test code = AST) 8 IUnit/L 15-37 L SGPT/ALT (test code = ALT) 13 IUnit/L 15-65 L ALKALINE PHOSPHATASE TOTAL (test code = ALKP) 51 IUnit/L 20-125 N [id number] 06:22:00* Test Item Value Reference Range Interpretation Comments PHOSPHOROUS (test code = PHOS) 3.0 MG/DL 2.5-4.9 [id number] 06:22:00* Test Item Value Reference Range Interpretation Comments MAGNESIUM (test code = MAG) 2.50 mg/dL 1.8-2.4 H CALCIUM [id number] 06:22:00* Test Item Value Reference Range Interpretation Comments CALCIUM IONIZED (test code = FREDDY) 1.26 MMOL/L 1.12-1.32 N PROTHROMBIN [id number] 06:05:00* Test Item Value Reference Range Interpretation Comments PROTHROMBIN TIME PATIENT (test code = PTP) 11.3 SECONDS 9.3-12.9 N INTERNATIONAL NORMAL RATIO (test code = INR) 1.0 0.8-1.2 N TARGET INR BY INDICATION Indication INR1. Prophylaxis of venous thrombosis 2.0 - 3.0 (orthopedic surgery), Prophylaxis of venous thrombosis (other than high-risk surgery), Treatment of Deep Vein Thrombosis/Pulmonary Embolism, Prevention of systemic embolism - Tissue heart valves, Acute Myocardial Infarction (to prevent systemic embolism), Valvular heart disease, Atrial Fibrillation, Bileaflet mechanical valve in aortic position.2. Mechanical prosthetic valves (high risk), 2.5 - 3.5 Presence of Lupus Anticoagulant or Antiphospholipid Antibodies, Prevention of systemic embolism - Acute Myocardial Infarction (to prevent recurrent infarct). COMPREHENSIVE METABOLIC [id number] 06:04:00* Test Item Value Reference Range Interpretation Comments SODIUM (test code = NA) mEq/L 134-147 POTASSIUM (test code = K) mEq/L 3.4-5.0 CHLORIDE (test code = CL) mEq/L 100-108 CARBON DIOXIDE (test code = CO2) mEq/L 21-33 ANION GAP (test code = GAP) 0-20 GLUCOSE (test code = GLU) mg/dL 70-110 BLOOD UREA NITROGEN (test code = BUN) mg/dL 7-18 GLOMERULAR FILTRATION RATE (test code = GFR) 70-80 CREATININE (test code = CREAT) mg/dL 0.6-1.3 TOTAL PROTEIN (test code = PROT) g/dL 6.4-8.2 ALBUMIN (test code = ALB) g/dL 3.4-5.0 CALCIUM (test code = CA) mg/dL 8.0-10.5 BILIRUBIN TOTAL (test code = BILT) MG/DL <1.5 SGOT/AST (test code = AST) IUnit/L 15-37 SGPT/ALT (test code = ALT) IUnit/L 15-65 ALKALINE PHOSPHATASE TOTAL (test code = ALKP) IUnit/L 20-125 [id number] 06:04:00* Test Item Value Reference Range Interpretation Comments PHOSPHOROUS (test code = PHOS) MG/DL 2.5-4.9 [id number] 06:04:00* Test Item Value Reference Range Interpretation Comments MAGNESIUM (test code = MAG) mg/dL 1.8-2.4 CALCIUM [id number] 06:04:00* Test Item Value Reference Range Interpretation Comments CALCIUM IONIZED (test code = FREDDY) 1.26 MMOL/L 1.12-1.32 N CBC W/AUTO [id number] 05:59:00* Test Item Value Reference Range Interpretation Comments WHITE BLOOD CELL (test code = WBC) 11.02 x10 3/uL 4.5-11.0 H RED BLOOD CELL (test code = RBC) 4.13 x10 6/uL 4.00-5.60 N HEMOGLOBIN (test code = HGB) 11.5 g/dL 12.5-16.9 L HEMATOCRIT (test code = HCT) 37.5 % 37.5-50.7 N MEAN CELL VOLUME (test code = MCV) 90.8 fL 81.0-99.0 N MEAN CELL HGB (test code = MCH) 27.8 pg 27.0-33.0 N MEAN CELL HGB CONCETRATION (test code = MCHC) 30.7 g/dL 33.0-37. 0 L RED CELL DISTRIBUTION WIDTH CV (test code = RDW) 17.2 % 11.5- 14.5 H RED CELL DISTRIBUTION WIDTH SD (test code = RDW-SD) 56.2 fL 37 .0-54.0 H PLATELET COUNT (test code = PLT) 172 x10 3/uL 150-400 N MEAN PLATELET VOLUME (test code = MPV) 10.5 fL 7.0-9.0 H NEUTROPHIL % (test code = NT%) 94.0 % 56.0-77.0 H IMMATURE GRANULOCYTE % (test code = IG%) 0.5 % 0.0-2.0 N LYMPHOCYTE % (test code = LY%) 3.7 % 14.0-32.0 L MONOCYTE % (test code = MO%) 1.7 % 4.8-9.0 L EOSINOPHIL % (test code = EO%) 0.0 % 0.3-3.7 L BASOPHIL % (test code = BA%) 0.1 % 0.0-2.0 N NUCLEATED RBC % (test code = NRBC%) 0.0 % 0-0 N NEUTROPHIL # (test code = NT#) 10.35 x10 3/uL 2.0-7.6 H IMMATURE GRANULOCYTE # (test code = IG#) 0.06 x10 3/uL 0.00-0.03 H LYMPHOCYTE # (test code = LY#) 0.41 x10 3/uL 1.0-3.8 L MONOCYTE # (test code = MO#) 0.19 x10 3/uL 0.1-0.8 N EOSINOPHIL # (test code = EO#) 0.00 x10 3/uL 0.0-0.2 N BASOPHIL # (test code = BA#) 0.01 x10 3/uL 0.0-0.2 N NUCLEATED RBC # (test code = NRBC#) 0.00 x10 3/uL 0.0-0.1 N MANUAL DIFF REQUIRED (test code = MDIFF) NO [id number] 05:55:00* Test Item Value Reference Range Interpretation Comments GLUBED (test code = GLUBED) 125 MG/DL 70-110 H Performed by certified ballast cleaning machine operator at [facility] [id number] 18:35:00* Test Item Value Reference Range Interpretation Comments GLUBED (test code = GLUBED) 82 MG/DL 70-110 N Performed by certified ballast cleaning machine operator at [facility] [id number] 18:29:00* Test Item Value Reference Range Interpretation Comments GLUBED (test code = GLUBED) 136 MG/DL 70-110 H Performed by certified ballast cleaning machine operator at [facility] - XR CHEST 1 [id number] 09:16:00 FAX: Kyree Foreman MD [place]: St: [facility] FAX: Rica Grant MD [phone] Name: [facility] [place] : 1940 Age/S: 78/M [address] [place] [address] Blvd Unit #: [id number] Loc: [place] [address] Phys: Kyree Foreman MD Acct: [id number] Dis Date: Status: ADM IN PHONE #: [phone] Exam Date: 05/19/2019903 FAX #: [phone] Reason: pneumonia EXAMS: CPT CODE: [id number] XR CHEST 1 V [id number] EXAM: Single view AP chest. EXAM DATE: 05/19/2019 at 0852 hours CLINICAL HISTORY: pneumonia COMPARISON: May 17, 2019 at 2213 hours Endotracheal tube tip appears to end at approximately T3, enteric tube tip is projected over the left upper quadrant and right-sided neck catheter tip is in the region of the superior vena cava. Heart size is within normal limits. Atheroscle rotic calcifications and tortuosity of the intrathoracic aorta is identifi ed.. Mild increase in pulmonary vascular markings are noted bilaterally. No infiltrates or effusions are noted on the right. Increasing patchy infiltrate is identified in the left mid lung peripherally. No definite effusions are identified. Imaged osseous structures demonstrate no acute f indings. IMPRESSION: 1. Increasing patchy infiltrate le ft lower lung. 2. The prominence of the pulmonary vascularity. at 0916 Reported and signed by: Halley Davies M.D. CC: Kyree Foreman MD; Rica west MD Technologist: EMANUEL Tejeda RT(R); Michaela lara RT(R) Trnscrd Date/Time/By: 05/19/2019 (915) : By: Eryn Teran Print D/T: S: 05/19/2019 (918) PAGE 1 Signed Report THROMBOPLASTIN TIME [id number] 08:13:00* Test Item Value Reference Range Interpretation Comments THROMBOPLASTIN TIME PARTIAL (test code = PTT) 117.4 Seconds 25.0-39 .5 H Therapeutic Range: 50.4 - 88.3 Seconds Effective 05/29/2018 ARTERIAL BLOOD [id number] 05:09:00* Test Item Value Reference Range Interpretation Comments ARTERIAL BLOOD GAS PH (test code = PHA) 7.463 7.35-7.45 H ARTERIAL BLOOD GAS PCO2 (test code = PCO2A) 45.4 mmHg 35-45 H ARTERIAL BLOOD GAS PO2 (test code = PO2A) 199 mmHg 80-100 H BICARBONATE TOTAL HCO3 (test code = HCO3) 32.6 mmol/L 22.0-26.0 H BASE EXCESS (test code = HARRY) 9.0 mmol/L -4-4 H ABG O2 SATURATION (test code = SATA) 100 % 90-100 N FIO2 (test code = FIO2A) 45 % ABG DELIVERY (test code = GWENDOLYN) Vent ABG VENT MODE (test code = MODEA) AC v con ABG VENT RESP RATE (test code = RRA) 24 /MIN ABG TIDAL VOLUME (test code = TVA) 400 ml ABG PEEP (test code = PEEPA) 5 cmH2O Performed by certified ballast cleaning machine operator at [facility] ABG TEMPERATURE (test code = TEMPA) 97.5 F ABG SITE (test code = SITEA) L Rad PREDICTED AA GRADIENT (test code = AP) 69 PREDICTED PO2 (test code = OP) 197 a/A RATIO (test code = RATIO) 0.75 TCO2 ARTERIAL (test code = TCO2A) 34 A-A GRADIENT (test code = AAGRADE) 67 PROTHROMBIN [id number] 04:41:00* Test Item Value Reference Range Interpretation Comments PROTHROMBIN TIME PATIENT (test code = PTP) 12.5 SECONDS 9.3-12.9 N INTERNATIONAL NORMAL RATIO (test code = INR) 1.1 0.8-1.2 N TARGET INR BY INDICATION Indication INR1. Prophylaxis of venous thrombosis 2.0 - 3.0 (orthopedic surgery), Prophylaxis of venous thrombosis (other than high-risk surgery), Treatment of Deep Vein Thrombosis/Pulmonary Embolism, Prevention of systemic embolism - Tissue heart valves, Acute Myocardial Infarction (to prevent systemic embolism), Valvular heart disease, Atrial Fibrillation, Bileaflet mechanical valve in aortic position.2. Mechanical prosthetic valves (high risk), 2.5 - 3.5 Presence of Lupus Anticoagulant or Antiphospholipid Antibodies, Prevention of systemic embolism - Acute Myocardial Infarction (to prevent recurrent infarct). THROMBOPLASTIN TIME [id number] 04:41:00* Test Item Value Reference Range Interpretation Comments THROMBOPLASTIN TIME PARTIAL (test code = PTT) 203.0 Seconds 25.0-39 .5 H Therapeutic Range: 50.4 - 88.3 Seconds Effective 05/29/2018 COMPREHENSIVE METABOLIC [id number] 04:40:00* Test Item Value Reference Range Interpretation Comments SODIUM (test code = NA) 143 mEq/L 134-147 N POTASSIUM (test code = K) 3.9 mEq/L 3.4-5.0 N CHLORIDE (test code = CL) 110 mEq/L 100-108 H CARBON DIOXIDE (test code = CO2) 30 mEq/L 21-33 N ANION GAP (test code = GAP) 7 0-20 N GLUCOSE (test code = GLU) 150 mg/dL 70-110 H BLOOD UREA NITROGEN (test code = BUN) 24 mg/dL 7-18 H GLOMERULAR FILTRATION RATE (test code = GFR) 130.0 70-80 H Units of measure = ml/min/1.73 m2 CREATININE (test code = CREAT) 0.6 mg/dL 0.6-1.3 N TOTAL PROTEIN (test code = PROT) 5.2 g/dL 6.4-8.2 L ALBUMIN (test code = ALB) 2.40 g/dL 3.4-5.0 L CALCIUM (test code = CA) 8.3 mg/dL 8.0-10.5 N BILIRUBIN TOTAL (test code = BILT) 0.3 MG/DL <1.5 SGOT/AST (test code = AST) 7 IUnit/L 15-37 L SGPT/ALT (test code = ALT) 11 IUnit/L 15-65 L ALKALINE PHOSPHATASE TOTAL (test code = ALKP) 44 IUnit/L 20-125 N LIPID PROFILE (CORONARY RISK)2019-05-19 04:40:00* Test Item Value Reference Range Interpretation Comments TRIGLYCERIDES (test code = TRIG) 76 mg/dL 40-150 N CHOLESTEROL (test code = CHOL) 127 mg/dL <200 CHOLESTEROL/HDL RATIO (test code = CHOLHDL) 1.98 RATIO 3.43-4.97 L RISK ASSOCIATED WITH CHOL/HDL RATIOS: RISK MALE FEMALE1/2 AVERAGE 3.43 3.27AVERAGE 4.97 4.442X AVERAGE 9.55 7.053X AVERAGE 23.39 11.04 NOTE THAT THE REFERENCE VALUE IS RELATEDTO RISK LEVELS RECOMMENDED BY THE NATL.HEART, LUNG, AND BLOOD INST. HDL CHOLESTEROL (test code = HDL) 64.0 mg/dL 32-72 N LIPOPROTEIN LDL (test code = LDL) 50 mg/dL 0-100 N <100 [id number] NEAR OPTIMAL/ABOVE [id number] HIGH>IO=852 VERY HIGH*Guidelines provided by the National Cholesterol EducationProgram Adult Treatment Panel III [id number] 04:40:00* Test Item Value Reference Range Interpretation Comments PHOSPHOROUS (test code = PHOS) 2.3 MG/DL 2.5-4.9 L [id number] 04:40:00* Test Item Value Reference Range Interpretation Comments MAGNESIUM (test code = MAG) 2.10 mg/dL 1.8-2.4 N CALCIUM [id number] 04:40:00* Test Item Value Reference Range Interpretation Comments CALCIUM IONIZED (test code = FREDDY) 1.19 MMOL/L 1.12-1.32 N COMPREHENSIVE METABOLIC [id number] 04:30:00* Test Item Value Reference Range Interpretation Comments SODIUM (test code = NA) mEq/L 134-147 POTASSIUM (test code = K) mEq/L 3.4-5.0 CHLORIDE (test code = CL) mEq/L 100-108 CARBON DIOXIDE (test code = CO2) mEq/L 21-33 ANION GAP (test code = GAP) 0-20 GLUCOSE (test code = GLU) mg/dL 70-110 BLOOD UREA NITROGEN (test code = BUN) mg/dL 7-18 GLOMERULAR FILTRATION RATE (test code = GFR) 70-80 CREATININE (test code = CREAT) mg/dL 0.6-1.3 TOTAL PROTEIN (test code = PROT) g/dL 6.4-8.2 ALBUMIN (test code = ALB) g/dL 3.4-5.0 CALCIUM (test code = CA) mg/dL 8.0-10.5 BILIRUBIN TOTAL (test code = BILT) MG/DL <1.5 SGOT/AST (test code = AST) IUnit/L 15-37 SGPT/ALT (test code = ALT) IUnit/L 15-65 ALKALINE PHOSPHATASE TOTAL (test code = ALKP) IUnit/L 20-125 LIPID PROFILE (CORONARY RISK)2019-05-19 04:30:00* Test Item Value Reference Range Interpretation Comments TRIGLYCERIDES (test code = TRIG) mg/dL 40-150 CHOLESTEROL (test code = CHOL) mg/dL <200 CHOLESTEROL/HDL RATIO (test code = CHOLHDL) RATIO 3.43-4.97 HDL CHOLESTEROL (test code = HDL) mg/dL 32-72 LIPOPROTEIN LDL (test code = LDL) mg/dL 0-100 [id number] 04:30:00* Test Item Value Reference Range Interpretation Comments PHOSPHOROUS (test code = PHOS) MG/DL 2.5-4.9 [id number] 04:30:00* Test Item Value Reference Range Interpretation Comments MAGNESIUM (test code = MAG) mg/dL 1.8-2.4 CALCIUM [id number] 04:30:00* Test Item Value Reference Range Interpretation Comments CALCIUM IONIZED (test code = FREDDY) 1.19 MMOL/L 1.12-1.32 N CBC W/AUTO [id number] 04:19:00* Test Item Value Reference Range Interpretation Comments WHITE BLOOD CELL (test code = WBC) 10.48 x10 3/uL 4.5-11.0 N RED BLOOD CELL (test code = RBC) 3.50 x10 6/uL 4.00-5.60 L HEMOGLOBIN (test code = HGB) 9.8 g/dL 12.5-16.9 L HEMATOCRIT (test code = HCT) 32.6 % 37.5-50.7 L MEAN CELL VOLUME (test code = MCV) 93.1 fL 81.0-99.0 N MEAN CELL HGB (test code = MCH) 28.0 pg 27.0-33.0 N MEAN CELL HGB CONCETRATION (test code = MCHC) 30.1 g/dL 33.0-37. 0 L RED CELL DISTRIBUTION WIDTH CV (test code = RDW) 17.0 % 11.5- 14.5 H RED CELL DISTRIBUTION WIDTH SD (test code = RDW-SD) 57.4 fL 37 .0-54.0 H PLATELET COUNT (test code = PLT) 152 x10 3/uL 150-400 N MEAN PLATELET VOLUME (test code = MPV) 10.8 fL 7.0-9.0 H NEUTROPHIL % (test code = NT%) 83.9 % 56.0-77.0 H IMMATURE GRANULOCYTE % (test code = IG%) 0.4 % 0.0-2.0 N LYMPHOCYTE % (test code = LY%) 7.1 % 14.0-32.0 L MONOCYTE % (test code = MO%) 8.5 % 4.8-9.0 N EOSINOPHIL % (test code = EO%) 0.0 % 0.3-3.7 L BASOPHIL % (test code = BA%) 0.1 % 0.0-2.0 N NUCLEATED RBC % (test code = NRBC%) 0.0 % 0-0 N NEUTROPHIL # (test code = NT#) 8.80 x10 3/uL 2.0-7.6 H IMMATURE GRANULOCYTE # (test code = IG#) 0.04 x10 3/uL 0.00-0.03 H LYMPHOCYTE # (test code = LY#) 0.74 x10 3/uL 1.0-3.8 L MONOCYTE # (test code = MO#) 0.89 x10 3/uL 0.1-0.8 H EOSINOPHIL # (test code = EO#) 0.00 x10 3/uL 0.0-0.2 N BASOPHIL # (test code = BA#) 0.01 x10 3/uL 0.0-0.2 N NUCLEATED RBC # (test code = NRBC#) 0.00 x10 3/uL 0.0-0.1 N MANUAL DIFF REQUIRED (test code = MDIFF) NO [id number] 00:23:00* Test Item Value Reference Range Interpretation Comments GLUBED (test code = GLUBED) 127 MG/DL 70-110 H Performed by certified ballast cleaning machine operator at [facility] PROTHROMBIN [id number] 20:19:00* Test Item Value Reference Range Interpretation Comments PROTHROMBIN TIME PATIENT (test code = PTP) 11.3 SECONDS 9.3-12.9 N INTERNATIONAL NORMAL RATIO (test code = INR) 1.0 0.8-1.2 N TARGET INR BY INDICATION Indication INR1. Prophylaxis of venous thrombosis 2.0 - 3.0 (orthopedic surgery), Prophylaxis of venous thrombosis (other than high-risk surgery), Treatment of Deep Vein Thrombosis/Pulmonary Embolism, Prevention of systemic embolism - Tissue heart valves, Acute Myocardial Infarction (to prevent systemic embolism), Valvular heart disease, Atrial Fibrillation, Bileaflet mechanical valve in aortic position.2. Mechanical prosthetic valves (high risk), 2.5 - 3.5 Presence of Lupus Anticoagulant or Antiphospholipid Antibodies, Prevention of systemic embolism - Acute Myocardial Infarction (to prevent recurrent infarct). COMMENTS: IF NOT ALREADY DONE WITHIN THE LAST 24 HOURSTHROMBOPLASTIN TIME [id number] 20:19:00* Test Item Value Reference Range Interpretation Comments THROMBOPLASTIN TIME PARTIAL (test code = PTT) 28.3 Seconds 25.0-39. 5 N Therapeutic Range: 50.4 - 88.3 Seconds Effective 05/29/2018 COMMENTS: IF NOT ALREADY DONE WITHIN THE LAST 24 HOURSCBC W/AUTO [id number] 20:15:00* Test Item Value Reference Range Interpretation Comments WHITE BLOOD CELL (test code = WBC) 9.61 x10 3/uL 4.5-11.0 N RED BLOOD CELL (test code = RBC) 3.73 x10 6/uL 4.00-5.60 L HEMOGLOBIN (test code = HGB) 10.6 g/dL 12.5-16.9 L HEMATOCRIT (test code = HCT) 35.6 % 37.5-50.7 L MEAN CELL VOLUME (test code = MCV) 95.4 fL 81.0-99.0 N MEAN CELL HGB (test code = MCH) 28.4 pg 27.0-33.0 N MEAN CELL HGB CONCETRATION (test code = MCHC) 29.8 g/dL 33.0-37. 0 L RED CELL DISTRIBUTION WIDTH CV (test code = RDW) 16.7 % 11.5- 14.5 H RED CELL DISTRIBUTION WIDTH SD (test code = RDW-SD) 58.4 fL 37 .0-54.0 H PLATELET COUNT (test code = PLT) 139 x10 3/uL 150-400 L MEAN PLATELET VOLUME (test code = MPV) 9.9 fL 7.0-9.0 H NEUTROPHIL % (test code = NT%) 87.9 % 56.0-77.0 H IMMATURE GRANULOCYTE % (test code = IG%) 0.2 % 0.0-2.0 N LYMPHOCYTE % (test code = LY%) 6.0 % 14.0-32.0 L MONOCYTE % (test code = MO%) 5.8 % 4.8-9.0 N EOSINOPHIL % (test code = EO%) 0.0 % 0.3-3.7 L BASOPHIL % (test code = BA%) 0.1 % 0.0-2.0 N NUCLEATED RBC % (test code = NRBC%) 0.0 % 0-0 N NEUTROPHIL # (test code = NT#) 8.44 x10 3/uL 2.0-7.6 H IMMATURE GRANULOCYTE # (test code = IG#) 0.02 x10 3/uL 0.00-0.03 N LYMPHOCYTE # (test code = LY#) 0.58 x10 3/uL 1.0-3.8 L MONOCYTE # (test code = MO#) 0.56 x10 3/uL 0.1-0.8 N EOSINOPHIL # (test code = EO#) 0.00 x10 3/uL 0.0-0.2 N BASOPHIL # (test code = BA#) 0.01 x10 3/uL 0.0-0.2 N NUCLEATED RBC # (test code = NRBC#) 0.00 x10 3/uL 0.0-0.1 N MANUAL DIFF REQUIRED (test code = MDIFF) NO COMMENTS: IF NOT ALREADY DONE WITHIN THE LAST 24 HOURS- CTA CHEST FOR PE 2019-05-18 16:54:00 Name: AARON DAVID [facility] : 1940 Age/S: 78 / M [address] [place] [address] Unit #: [id number] Loc: [place] [address] Phys: Kyree Foreman MD Acct: [id number] Dis Date: Status: ADM IN PHONE #: [phone] Exam Date: 05/18/2019 1621 FAX #: [phone] Reason: pulmonary embolus EXAMS: CPT CODE: [id number] [place] [address] Clinical Indication: pulmonary embolus; Comparison: None TECHNIQUE: Multi-detector CTA imaging of the chest is performed. Coronal and sagittal as well as 3D Maximum Intensity Projected MIP reconstructions were obtained. 100 cc IV Isovue contrast used. CT DLP 984 mg-cm. FINDINGS: CT: Moderate centrilobular emphysema is seen in both lungs. There are no lung nodules, pleural effusions or pneumothorax. Atelectasis versus infiltrate is seen in the lingula. The central airway is normal. There is no mediastinal lymphadenopathy. Thoracic osseous structures and limited upper abdominal images are unremarkable. Lines and tubes: The tip of the endotracheal tube terminates well above the level of the eric. The tip of the nasogastric tube is in the body of the stomach. The tip of the right IJ line is at the atrial caval junction. CTA: The heart is within normal limits for size without pericardial effusion. No heart strain is seen. Moderate coronary calcification is present. Pulmonary emboli are seen in the segmental branches of the bilateral pulmonary arteries supplying the lower lungs. The thoracic aorta is within normal limits without aneurysm or dissection. The great vessels and superior vena cava are normal. IMPRESSION: 1. Pulmonary emboli in the segmental branches of the bilateral pulmonary arteries supplying the lower lungs. No heart strain is seen. 2. Atelectasis versus infiltrate in the lingula. Acute finding of positive PE was communicated to MD Gareth at 4:54 PM on 05/18/2019. PAGE 1 Signed Report (CONTINUED) Name: AARON DAVID [facility] : 1940 Age/S: 78 / M [address] [place] [address] Bl Unit #: [id number] Loc: [place] [address] Phys: Kyree Foreman MD Acct: [id number] Dis Date: Status: ADM IN PHONE #: [phone] Exam Date: 05/18/2019 1621 FAX #: [phone] Reason: pulmonary embolus EXAMS: CPT CODE: [id number] [place] [address] < Continued> SL: LANVU-H at 1654 Reported and signed by: Nam Cuevas M.D. CC: Kyree Foreman MD; Rica Grant MD Technologist:Liseth Tena RT(R)(CT) CTDI: DLP: Trnscb Date/Time: 05/18/2019 (1653) t.SDR.LNV/t.SDR.LNV Orig Print D/T: S: 05/18/2019 (396) PAGE 2 Signed Report HGBA1C% 2019-05-18 06:41:00* Test Item Value Reference Range Interpretation Comments HGBA1C% (test code = HGBA1C%) 5.3 %A1C 4.8-6.0 N BASIC METABOLIC [id number] 06:36:00* Test Item Value Reference Range Interpretation Comments SODIUM (test code = NA) 143 mEq/L 134-147 N POTASSIUM (test code = K) 4.1 mEq/L 3.4-5.0 N CHLORIDE (test code = CL) 106 mEq/L 100-108 N CARBON DIOXIDE (test code = CO2) 32 mEq/L 21-33 N ANION GAP (test code = GAP) 9 0-20 N GLUCOSE (test code = GLU) 180 mg/dL 70-110 H BLOOD UREA NITROGEN (test code = BUN) 24 mg/dL 7-18 H GLOMERULAR FILTRATION RATE (test code = GFR) 93.3 70-80 H Units of measure = ml/min/1.73 m2 CREATININE (test code = CREAT) 0.8 mg/dL 0.6-1.3 N CALCIUM (test code = CA) 8.3 mg/dL 8.0-10.5 N TSH REFLEX TO [id number] 06:36:00* Test Item Value Reference Range Interpretation Comments TSH REFLEX TO FT4 (test code = TSHREFLEX) 0.37 IU/mL 0.42-5.47 L CBC W/AUTO [id number] 06:20:00* Test Item Value Reference Range Interpretation Comments WHITE BLOOD CELL (test code = WBC) 9.96 x10 3/uL 4.5-11.0 N RED BLOOD CELL (test code = RBC) 3.93 x10 6/uL 4.00-5.60 L HEMOGLOBIN (test code = HGB) 11.1 g/dL 12.5-16.9 L HEMATOCRIT (test code = HCT) 38.1 % 37.5-50.7 N MEAN CELL VOLUME (test code = MCV) 96.9 fL 81.0-99.0 MEAN CELL HGB (test code = MCH) 28.2 pg 27.0-33.0 N MEAN CELL HGB CONCETRATION (test code = MCHC) 29.1 g/dL 33.0-37. 0 L RED CELL DISTRIBUTION WIDTH CV (test code = RDW) 16.1 % 11.5- 14.5 H RED CELL DISTRIBUTION WIDTH SD (test code = RDW-SD) 58.0 fL 37 .0-54.0 H PLATELET COUNT (test code = PLT) 216 x10 3/uL 150-400 N MEAN PLATELET VOLUME (test code = MPV) 10.5 fL 7.0-9.0 H NEUTROPHIL % (test code = NT%) 93.7 % 56.0-77.0 H IMMATURE GRANULOCYTE % (test code = IG%) 0.7 % 0.0-2.0 N LYMPHOCYTE % (test code = LY%) 2.1 % 14.0-32.0 L MONOCYTE % (test code = MO%) 3.4 % 4.8-9.0 L EOSINOPHIL % (test code = EO%) 0.0 % 0.3-3.7 L BASOPHIL % (test code = BA%) 0.1 % 0.0-2.0 N NUCLEATED RBC % (test code = NRBC%) 0.0 % 0-0 N NEUTROPHIL # (test code = NT#) 9.33 x10 3/uL 2.0-7.6 H IMMATURE GRANULOCYTE # (test code = IG#) 0.07 x10 3/uL 0.00-0.03 H LYMPHOCYTE # (test code = LY#) 0.21 x10 3/uL 1.0-3.8 L MONOCYTE # (test code = MO#) 0.34 x10 3/uL 0.1-0.8 N EOSINOPHIL # (test code = EO#) 0.00 x10 3/uL 0.0-0.2 N BASOPHIL # (test code = BA#) 0.01 x10 3/uL 0.0-0.2 N NUCLEATED RBC # (test code = NRBC#) 0.00 x10 3/uL 0.0-0.1 N MANUAL DIFF REQUIRED (test code = MDIFF) NO [id number] 06:12:00* Test Item Value Reference Range Interpretation Comments GLUBED (test code = GLUBED) 176 MG/DL 70-110 H Performed by certified ballast cleaning machine operator at [facility] ARTERIAL BLOOD [id number] 04:54:00* Test Item Value Reference Range Interpretation Comments ARTERIAL BLOOD GAS PH (test code = PHA) 7.479 7.35-7.45 H ARTERIAL BLOOD GAS PCO2 (test code = PCO2A) 41.2 mmHg 35-45 N ARTERIAL BLOOD GAS PO2 (test code = PO2A) 219 mmHg 80-100 H BICARBONATE TOTAL HCO3 (test code = HCO3) 30.5 mmol/L 22.0-26.0 H BASE EXCESS (test code = HARRY) 7.0 mmol/L -4-4 H ABG O2 SATURATION (test code = SATA) 100 % 90-100 N FIO2 (test code = FIO2A) 60 % ABG DELIVERY (test code = GWENDOLYN) Vent ABG VENT MODE (test code = MODEA) AC v con ABG VENT RESP RATE (test code = RRA) 24 /MIN ABG TIDAL VOLUME (test code = TVA) 550 ml ABG PEEP (test code = PEEPA) 5 cmH2O Performed by certified ballast cleaning machine operator at [facility] ABG TEMPERATURE (test code = TEMPA) 99.5 F ABG SITE (test code = SITEA) L Rad PREDICTED AA GRADIENT (test code = AP) 98 PREDICTED PO2 (test code = OP) 280 a/A RATIO (test code = RATIO) 0.58 TCO2 ARTERIAL (test code = TCO2A) 32 A-A GRADIENT (test code = AAGRADE) 159 C REACTIVE [id number] 01:22:00* Test Item Value Reference Range Interpretation Comments C REACTIVE PROTEIN (test code = CRP) 7.1 MG/L 0.0-2.9 H Novel Coronavirus [id number] 00:57:00* Test Item Value Reference Range Interpretation Comments Novel Coronavirus 2019 nCoV (test code = COVID19) Testing Criteria: OtherOther: respiratory symptoms, hypoxia, intubatedCOMMENTS: SwabINFLUENZA A [id number] 00:57:00* Test Item Value Reference Range Interpretation Comments INFLUENZA A (test code = FLUAPCR) Negative Negative INFLUENZA B (test code = FLUBPCR) Negative Negative Testing Criteria: OtherOther: respiratory symptoms, hypoxia, intubatedCOMMENTS: SwabLACTIC DEHYDROGENASE(LDH)2019-05-18 00:22:00* Test Item Value Reference Range Interpretation Comments LACTIC DEHYDROGENASE(LDH) (test code = LDH) 113 IUnits/L 87-241 N [id number] 00:22:00* Test Item Value Reference Range Interpretation Comments FERRITIN (test code = SARA) 88.1 ng/mL 23.9-336.2 N - CT HEAD/BRAIN W/O [id number] 23:44:00 Name: AARON DAVID [facility] : 1940 Age/S: 78 / M [address] [place] [address] Bl Unit #: [id number] Loc: [place] [address] Phys: Jordy Mcguire DO Acct: [id number] Dis Date: Status: ADM IN PHONE #: [phone] Exam Date: 05/17/20192329 FAX #: [phone] Reason: AMS EXAMS: CPT CODE: [id number] CT HEAD/BRAIN W/O CONT 34621 CT HEAD WITHOUT CONTRAST INDICATION: Confusion. Altered mental status. Shortness of breath. COMPARISON: None. TECHNIQUE: Noncontrast CT head was performed from skull base to vertex at 3 mm slice collimation. Coronal and sagittal reconstructions performed. DOSE: CT imaging performed at this location utilizes radiation dose optimization technique which includes one or more of the followin) Automated exposure control; 2) Adjustment of the mA and/or kV according to patient's size; 3) Use of iterative reconstruction techniques. DLP: 419 mGy-cm FINDINGS: BRAIN PARENCHYMA AND VENTRICLES: Mild to moderate periventricular white matter hypodensities are present bilaterally. Werner-white matter differentiation is otherwise preserved. Ventricles are normal in size. No mass effect or midline shift. No extra-axial fluid collections. No acute intraparenchymal hemorrhage. Posterior fossa and midline structures appear normal. ORBITS, PARANASAL SINUSES, AND MASTOIDS: Mucosal thickening seen of bilateral ethmoid air cells and frontal sinuses. Left frontal sinus osteoma is present. Several left mastoid air cells are opacified. SKULL: Calvarium is intact. IMPRESSION: 1. No acute intracranial findings. 2. Findings consistent wi th chronic small vessel ischemic changes. 3. Partial left mastoid effus ion. SL: GORDON Electr onically Signed by Cherry Zhou on 0 at 2344 Reported and signed by: Richar guevara M.D. PAGE 1 Signed Report (C ONTINUED) Name: AARON DAVID [facility] : 1940 Age/S: 78 / M [address] [place] [address] Un it #: [id number] Loc: [place] [address] Phys: Jordy Mcguire DO Acct: [id number] Dis Date: Status: ADM IN PHONE #: [phone] Exam Date: 05/17/2019 2330 FAX #: [phone] Reason: AMS E XAMS: CPT CODE: [id number] CT HEAD/BRAIN W/O CONT 47215 <Continued> CC: Jordy Mcguire DO Technologist:Darin Leos, RT(R) CTDI: DLP: Trnscb Date/Time: 05/17/2019 (106) t.[email or web address].[email or web address] Orig Print D/T: S: 05/17/2019 (4927) PAGE 2 Signed Report B-TYPE NATRIURETIC [id number] 23:16:00* Test Item Value Reference Range Interpretation Comments B-TYPE NATRIURETIC PEPTIDE (test code = BNP) 264.8 PG/ML 0-100 H BASIC METABOLIC [id number] 23:07:00* Test Item Value Reference Range Interpretation Comments SODIUM (test code = NA) 146 mEq/L 134-147 N POTASSIUM (test code = K) 4.2 mEq/L 3.4-5.0 N CHLORIDE (test code = CL) 109 mEq/L 100-108 H CARBON DIOXIDE (test code = CO2) 37 mEq/L 21-33 H ANION GAP (test code = GAP) 4 0-20 N GLUCOSE (test code = GLU) 182 mg/dL 70-110 H BLOOD UREA NITROGEN (test code = BUN) 23 mg/dL 7-18 H GLOMERULAR FILTRATION RATE (test code = GFR) 108.8 70-80 H Units of measure = ml/min/1.73 m2 CREATININE (test code = CREAT) 0.7 mg/dL 0.6-1.3 N CALCIUM (test code = CA) 7.4 mg/dL 8.0-10.5 L HEPATIC FUNCTION [id number] 23:07:00* Test Item Value Reference Range Interpretation Comments TOTAL PROTEIN (test code = PROT) 5.1 g/dL 6.4-8.2 L ALBUMIN (test code = ALB) 2.40 g/dL 3.4-5.0 L BILIRUBIN TOTAL (test code = BILT) 0.5 MG/DL <1.5 N BILIRUBIN DIRECT (test code = BILD) 0.10 MG/DL 0.0-0.30 N BILIRUBIN INDIRECT (test code = BILIND) 0.40 MG/DL SGOT/AST (test code = AST) 5 IUnit/L 15-37 L SGPT/ALT (test code = ALT) 12 IUnit/L 15-65 L ALKALINE PHOSPHATASE TOTAL (test code = ALKP) 49 IUnit/L 20-125 N [id number] 23:07:00* Test Item Value Reference Range Interpretation Comments MAGNESIUM (test code = MAG) 2.00 mg/dL 1.8-2.4 N PROTHROMBIN [id number] 23:06:00* Test Item Value Reference Range Interpretation Comments PROTHROMBIN TIME PATIENT (test code = PTP) 11.5 SECONDS 9.3-12.9 N INTERNATIONAL NORMAL RATIO (test code = INR) 1.1 0.8-1.2 N TARGET INR BY INDICATION Indication INR1. Prophylaxis of venous thrombosis 2.0 - 3.0 (orthopedic surgery), Prophylaxis of venous thrombosis (other than high-risk surgery), Treatment of Deep Vein Thrombosis/Pulmonary Embolism, Prevention of systemic embolism - Tissue heart valves, Acute Myocardial Infarction (to prevent systemic embolism), Valvular heart disease, Atrial Fibrillation, Bileaflet mechanical valve in aortic position.2. Mechanical prosthetic valves (high risk), 2.5 - 3.5 Presence of Lupus Anticoagulant or Antiphospholipid Antibodies, Prevention of systemic embolism - Acute Myocardial Infarction (to prevent recurrent infarct). THROMBOPLASTIN TIME [id number] 23:06:00* Test Item Value Reference Range Interpretation Comments THROMBOPLASTIN TIME PARTIAL (test code = PTT) 26.3 Seconds 25.0-39. 5 N Therapeutic Range: 50.4 - 88.3 Seconds Effective 05/29/2018 [id number] 23:06:00* Test Item Value Reference Range Interpretation Comments D-DIMER (test code = DDIMER) 773 ng/mlFEU <=500 HH THROMBOSIS AND/OR PULMONARY EMBOLISM AND THE CLINICAL CUT- OFF VALUE FOR EXCLUSION (500 ng/mL FEU) OF THESE CONDITIONSIS VALIDATED BY THE [employer] TENDER OF THE METHOD. A NEGATIVE D-DIMER RESULT WHEN COMBINED WITH A CLINICALASSESSMENT OF LOW PRETEST PROBABILITY HAS BEEN SHOWN TO HAVEA HIGH NEGATIVE PREDICTIVE VALUE OF DVT OR PE. D-DIMER VALUES >500 ng/mL FEU ARE NOT DIAGNOSTIC FOR DVT, PEor DIC WITHOUT OTHER CONFIRMATORY TESTS AND APPROPRIATECLINICAL EUALUATIONS. BASIC METABOLIC [id number] 23:03:00* Test Item Value Reference Range Interpretation Comments SODIUM (test code = NA) 146 mEq/L 134-147 N POTASSIUM (test code = K) 4.2 mEq/L 3.4-5.0 N CHLORIDE (test code = CL) 109 mEq/L 100-108 H CARBON DIOXIDE (test code = CO2) 37 mEq/L 21-33 H ANION GAP (test code = GAP) 4 0-20 N GLUCOSE (test code = GLU) 182 mg/dL 70-110 H BLOOD UREA NITROGEN (test code = BUN) 23 mg/dL 7-18 H GLOMERULAR FILTRATION RATE (test code = GFR) 70-80 CREATININE (test code = CREAT) mg/dL 0.6-1.3 CALCIUM (test code = CA) 7.4 mg/dL 8.0-10.5 L HEPATIC FUNCTION [id number] 23:03:00* Test Item Value Reference Range Interpretation Comments TOTAL PROTEIN (test code = PROT) g/dL 6.4-8.2 ALBUMIN (test code = ALB) g/dL 3.4-5.0 BILIRUBIN TOTAL (test code = BILT) MG/DL <1.5 BILIRUBIN DIRECT (test code = BILD) MG/DL 0.0-0.30 SGOT/AST (test code = AST) IUnit/L 15-37 SGPT/ALT (test code = ALT) IUnit/L 15-65 ALKALINE PHOSPHATASE TOTAL (test code = ALKP) IUnit/L 20-125 [id number] 23:03:00* Test Item Value Reference Range Interpretation Comments MAGNESIUM (test code = MAG) mg/dL 1.8-2.4 LACTIC [id number] 23:01:00* Test Item Value Reference Range Interpretation Comments LACTIC ACID (test code = LACT) 0.8 mmol/L 0.4-1.9 N CBC W/AUTO [id number] 22:50:00* Test Item Value Reference Range Interpretation Comments WHITE BLOOD CELL (test code = WBC) 7.66 x10 3/uL 4.5-11.0 N RED BLOOD CELL (test code = RBC) 3.48 x10 6/uL 4.00-5.60 L HEMOGLOBIN (test code = HGB) 9.8 g/dL 12.5-16.9 L HEMATOCRIT (test code = HCT) 35.3 % 37.5-50.7 L MEAN CELL VOLUME (test code = MCV) 101.4 fL 81.0-99.0 H MEAN CELL HGB (test code = MCH) 28.2 pg 27.0-33.0 N MEAN CELL HGB CONCETRATION (test code = MCHC) 27.8 g/dL 33.0-37. 0 L RED CELL DISTRIBUTION WIDTH CV (test code = RDW) 16.3 % 11.5- 14.5 H RED CELL DISTRIBUTION WIDTH SD (test code = RDW-SD) 60.9 fL 37 .0-54.0 H PLATELET COUNT (test code = PLT) 151 x10 3/uL 150-400 N MEAN PLATELET VOLUME (test code = MPV) 9.9 fL 7.0-9.0 H NEUTROPHIL % (test code = NT%) 77.3 % 56.0-77.0 H IMMATURE GRANULOCYTE % (test code = IG%) 0.9 % 0.0-2.0 N LYMPHOCYTE % (test code = LY%) 11.1 % 14.0-32.0 L MONOCYTE % (test code = MO%) 10.1 % 4.8-9.0 H EOSINOPHIL % (test code = EO%) 0.3 % 0.3-3.7 N BASOPHIL % (test code = BA%) 0.3 % 0.0-2.0 N NUCLEATED RBC % (test code = NRBC%) 0.0 % 0-0 N NEUTROPHIL # (test code = NT#) 5.93 x10 3/uL 2.0-7.6 N IMMATURE GRANULOCYTE # (test code = IG#) 0.07 x10 3/uL 0.00-0.03 H LYMPHOCYTE # (test code = LY#) 0.85 x10 3/uL 1.0-3.8 L MONOCYTE # (test code = MO#) 0.77 x10 3/uL 0.1-0.8 N EOSINOPHIL # (test code = EO#) 0.02 x10 3/uL 0.0-0.2 N BASOPHIL # (test code = BA#) 0.02 x10 3/uL 0.0-0.2 N NUCLEATED RBC # (test code = NRBC#) 0.00 x10 3/uL 0.0-0.1 N MANUAL DIFF REQUIRED (test code = MDIFF) NO TROPONIN-I [id number] 22:47:00* Test Item Value Reference Range Interpretation Comments TROPONIN-I RAPID (test code = TROPIRAP) 0.05 ng/mL 0.00-0.08 N Performed by certified ballast cleaning machine operator at [facility] Negative: <= 0.08 Positive: >= 0.09An elevated troponin value alone is not sufficient todiagnose a myocardial infarction. Rather, the patient sclinical presentation (history, physical exam) and ECGshould be used in conjunction with troponin in thediagnostic evaluation of suspected myocardial infarction. Aserial sampling protocol is recommended to facilitate the identification of temporal changes in troponin levels characteristic of MT. ARTERIAL BLOOD [id number] 22:30:00* Test Item Value Reference Range Interpretation Comments ARTERIAL BLOOD GAS PH (test code = PHA) 7.293 7.35-7.45 L ARTERIAL BLOOD GAS PCO2 (test code = PCO2A) 80.0 mmHg 35-45 HH ARTERIAL BLOOD GAS PO2 (test code = PO2A) 535 mmHg 80-100 H BICARBONATE TOTAL HCO3 (test code = HCO3) 40.4 mmol/L 22.0-26.0 H BASE EXCESS (test code = HARRY) 13.0 mmol/L -4-4 H ABG O2 SATURATION (test code = SATA) 100 % 90-100 N FIO2 (test code = FIO2A) 100 % ABG DELIVERY (test code = GWENDOLYN) Vent ABG VENT MODE (test code = MODEA) AC v con ABG VENT RESP RATE (test code = RRA) 24 /MIN ABG TIDAL VOLUME (test code = TVA) 450 ml ABG PEEP (test code = PEEPA) 5 cmH2O Performed by certified ballast cleaning machine operator at [facility] ABG TEMPERATURE (test code = TEMPA) 92.2 F ABG SITE (test code = SITEA) L Rad PREDICTED AA GRADIENT (test code = AP) 160 PREDICTED PO2 (test code = OP) 457 a/A RATIO (test code = RATIO) 0.87 TCO2 ARTERIAL (test code = TCO2A) 43 A-A GRADIENT (test code = AAGRADE) 82 - XR CHEST 1 [id number] 22:26:00 FAX: Jordy Mcguire DO [phone] [place]: St: PRE Name: AARON MILLER [facility] : [birth year] Age/S: 78/M [address] [place] [address] Unit #: [id number] Loc: [place] [address] Phys: Jordy Mcguire DO Acct: [id number] Dis Date: Status: PRE ER PHONE #: [phone] Exam Date: 05/17/20192224 FAX #: [phone] Reason: SOB EXAMS: CPT CODE: [id number] XR CHEST 1 V 10917 Portable single view AP chest INDICATION: Shortness of breath. Intubated. Comparison: 09/17/2008 chest radiograph. FINDINGS: Endotracheal tube tip is tho ught to project 7.3 cm above the eric. Nasogastric tube seen across gas troesophageal junction. Right neck vascular catheter tip projects over th e proximal third of the superior vena cava shadow. Defibrillator pad proj ects over the right upper chest. Cardiomediastinal silhouett e is normal in size. Faint left midlung linear opacities are seen. No de finite pleural effusion is seen. No acute bony finding. I MPRESSION: Mild left midlung atelectasis. SL: GORDON at 2941 Reported and signed by: Richar Zhou M.D. CC: Jordy Mcguire DO Technologist: Abby Gillis, RT(R); Angelina Fitch RT(R) [facility] Date/Time/By: 05/17/2019 (5197) : By: [email or web address] Orig Print D/T: S: 05/17/2019 (3126) PAGE 1 Signed Report Prealbumin 2018-08-10 23:20:00* Test Item Value Reference Range Interpretation Comments Prealbumin (test code = 03422-6) Performed at: - [facility] [id number] Director: Michelet Quinones MD, Phone: [phone] Duncan [facility] Medical CenterPrealbumin2019-06-28 23:20:00* Test Item Value Reference Range Interpretation Comments Prealbumin (test code = 70186-0) Performed at: HD - [facility] [id number] Director: Michelet Quinones MD, Phone: [phone] E. DeBakey [facility] Medical Centerodium Qkrrv8697-07-29 12:08:00* Test Item Value Reference Range Interpretation Comments Sodium Level (test code = 2951-2) 138 136-145 [facility] CenterPotassium Vvycl4592-98-74 12:08:00* Test Item Value Reference Range Interpretation Comments Potassium Level (test code = 2823-3) 4.4 3.5-5.1 [facility] CenterChloride Pykdt4145-14-55 12:08:00* Test Item Value Reference Range Interpretation Comments Chloride Level (test code = 2075-0) 99 98-107 [facility] CenterCarbon Dioxide Hmxad4270-80-70 12:08:00* Test Item Value Reference Range Interpretation Comments Carbon Dioxide Level (test code = 2028-9) 29 22-29 [facility] CenterAnion [id number] 12:08:00* Test Item Value Reference Range Interpretation Comments Anion Gap (test code = 17363-7) 14.4 8-16 [facility] CenterBlood Urea Pnhxvekn7812-21-04 12:08:00* Test Item Value Reference Range Interpretation Comments Blood Urea Nitrogen (test code = 3094-0) 16 7-26 [facility] CenterCreatinine2019-06-27 12:08:00* Test Item Value Reference Range Interpretation Comments Creatinine (test code = 2160-0) 0.77 0.72-1.25 [facility] CenterBUN/Creatinine Kvzsb8034-18-11 12:08:00* Test Item Value Reference Range Interpretation Comments BUN/Creatinine Ratio (test code = 3097-3) 21 6-25 [facility] CenterEstimat Glomerular Filtration Rate 2018-08-09 12:08:00* Test Item Value Reference Range Interpretation Comments Estimat Glomerular Filtration Rate (test code = 355879289) > 60 >60 Ranges were taken from the National Kidney Disease Education Program and the [facility] Kidney Foundation literature.Reference ranges:60 or greater: Sfijly18-53 ( for 3 consecutive months): Chronic kidney disease 15 or less: Kidney failureFort Duncan Regional Medical CenterGlucose Hxqlk7270-27-62 12:08:00* Test Item Value Reference Range Interpretation Comments Glucose Level (test code = IBI1169) 90 74-118 [facility] CenterCalcium Tepne9476-44-25 12:08:00* Test Item Value Reference Range Interpretation Comments Calcium Level (test code = 60118-5) 9.2 8.4-10.2 [facility] CenterTotal Orcorruwh4611-02-22 12:08:00* Test Item Value Reference Range Interpretation Comments Total Bilirubin (test code = 1975-2) 0.5 0.2-1.2 [facility] CenterAspartate Amino Transf (AST/SGOT) 2018-08-09 12:08:00* Test Item Value Reference Range Interpretation Comments Aspartate Amino Transf (AST/SGOT) (test code = Aspartate Amino Transf (AST/SGOT)) 13 5-34 [facility] CenterAlanine Aminotransferase (ALT/SGPT) 2018-08-09 12:08:00* Test Item Value Reference Range Interpretation Comments Alanine Aminotransferase (ALT/SGPT) (test code = 1742-6) 12 0-55 [facility] CenterTotal Elricot9571-59-04 12:08:00* Test Item Value Reference Range Interpretation Comments Total Protein (test code = 2885-2) 6.4 6.5-8.1 L [facility] CenterAlbumin2019-06-27 12:08:00* Test Item Value Reference Range Interpretation Comments Albumin (test code = 1751-7) 3.5 3.5-5.0 [facility] CenterGlobulin2019-06-27 12:08:00* Test Item Value Reference Range Interpretation Comments Globulin (test code = 10821-4) 2.9 2.3-3.5 [facility] CenterAlbumin/Globulin Ujqpn6825-47-32 12:08:00 * Test Item Value Reference Range Interpretation Comments Albumin/Globulin Ratio (test code = 1759-0) 1.2 0.8-2.0 [facility] CenterAlkaline Lmftywiqczi1550-11-26 12:08:00* Test Item Value Reference Range Interpretation Comments Alkaline Phosphatase (test code = 6768-6) 57 40-150 [facility] Centerodium Vslcp9004-52-77 12:08:00* Test Item Value Reference Range Interpretation Comments Sodium Level (test code = 2951-2) 138 136-145 [facility] CenterPotassium Ytovp6502-60-93 12:08:00* Test Item Value Reference Range Interpretation Comments Potassium Level (test code = 2823-3) 4.4 3.5-5.1 [facility] CenterChloride Jduxl4557-62-73 12:08:00* Test Item Value Reference Range Interpretation Comments Chloride Level (test code = 2075-0) 99 98-107 [facility] CenterCarbon Dioxide Jhvxm3529-86-12 12:08:00* Test Item Value Reference Range Interpretation Comments Carbon Dioxide Level (test code = 2028-9) 29 22-29 [facility] CenterAnion Gxr2822-41-15 12:08:00* Test Item Value Reference Range Interpretation Comments Anion Gap (test code = 96148-3) 14.4 8-16 [facility] CenterBlood Urea Qovxwybb8140-47-22 12:08:00* Test Item Value Reference Range Interpretation Comments Blood Urea Nitrogen (test code = 3094-0) 16 7-26 [facility] CenterCreatinine2019-06-27 12:08:00* Test Item Value Reference Range Interpretation Comments Creatinine (test code = 2160-0) 0.77 0.72-1.25 [facility] CenterBUN/Creatinine Rwbri4252-34-55 12:08:00* Test Item Value Reference Range Interpretation Comments BUN/Creatinine Ratio (test code = 3097-3) 21 6-25 [facility] CenterEstimat Glomerular Filtration Rate 2018-08-09 12:08:00* Test Item Value Reference Range Interpretation Comments Estimat Glomerular Filtration Rate (test code = 382372252) > 60 >60 Ranges were taken from the National Kidney Disease Education Program and the [facility] Kidney Foundation literature.Reference ranges:60 or greater: Hsngtp03-71 ( for 3 consecutive months): Chronic kidney disease 15 or less: Kidney failureFort Duncan Regional Medical CenterGlucose Lrvlh7042-28-14 12:08:00* Test Item Value Reference Range Interpretation Comments Glucose Level (test code = YCK8308) 90 74-118 [facility] CenterCalcium Fhhkg1325-14-80 12:08:00* Test Item Value Reference Range Interpretation Comments Calcium Level (test code = 67965-8) 9.2 8.4-10.2 [facility] CenterTotal Sahmsnnld2728-15-96 12:08:00* Test Item Value Reference Range Interpretation Comments Total Bilirubin (test code = 1975-2) 0.5 0.2-1.2 [facility] CenterAspartate Amino Transf (AST/SGOT) 2018-08-09 12:08:00* Test Item Value Reference Range Interpretation Comments Aspartate Amino Transf (AST/SGOT) (test code = Aspartate Amino Transf (AST/SGOT)) 13 5-34 [facility] CenterAlanine Aminotransferase (ALT/SGPT) 2018-08-09 12:08:00* Test Item Value Reference Range Interpretation Comments Alanine Aminotransferase (ALT/SGPT) (test code = 1742-6) 12 0-55 [facility] CenterTotal Vxmwynh9452-46-21 12:08:00* Test Item Value Reference Range Interpretation Comments Total Protein (test code = 2885-2) 6.4 6.5-8.1 L [facility] CenterAlbumin2019-06-27 12:08:00* Test Item Value Reference Range Interpretation Comments Albumin (test code = 1751-7) 3.5 3.5-5.0 [facility] CenterGlobulin2019-06-27 12:08:00* Test Item Value Reference Range Interpretation Comments Globulin (test code = 36107-5) 2.9 2.3-3.5 [facility] CenterAlbumin/Globulin Mpyhq8371-69-92 12:08:00 * Test Item Value Reference Range Interpretation Comments Albumin/Globulin Ratio (test code = 1759-0) 1.2 0.8-2.0 [facility] CenterAlkaline Kgpqzavhxet2789-21-09 12:08:00* Test Item Value Reference Range Interpretation Comments Alkaline Phosphatase (test code = 6768-6) 57 40-150 [facility] CenterWhite Blood Kllvy8526-01-57 11:44:00* Test Item Value Reference Range Interpretation Comments White Blood Count (test code = 6690-2) 6.76 4.8-10.8 [facility] CenterRed Blood Zrrmv4980-69-46 11:44:00* Test Item Value Reference Range Interpretation Comments Red Blood Count (test code = 789-8) 5.19 4.3-5.7 [facility] CenterHemoglobin2019-06-27 11:44:00* Test Item Value Reference Range Interpretation Comments Hemoglobin (test code = 77795-6) 14.7 14.0-18.0 [facility] CenterHematocrit2019-06-27 11:44:00* Test Item Value Reference Range Interpretation Comments Hematocrit (test code = 4544-3) 45.5 38.2-49.6 [facility] CenterMean Corpuscular Fpdcel4231-15-37 11:44:00* Test Item Value Reference Range Interpretation Comments Mean Corpuscular Volume (test code = 787-2) 87.7 81-99 [facility] CenterMean Corpuscular Ukafzibuwu1634-26-19 11:44:00* Test Item Value Reference Range Interpretation Comments Mean Corpuscular Hemoglobin (test code = 785-6) 28.3 28-32 [facility] CenterMean Corpuscular Hemoglobin Concent 2018-08-09 11:44:00* Test Item Value Reference Range Interpretation Comments Mean Corpuscular Hemoglobin Concent (test code = 786-4) 32.3 31-35 [facility] CenterRed Cell Distribution Qrlfu0033-80-28 11:44:00* Test Item Value Reference Range Interpretation Comments Red Cell Distribution Width (test code = 57175-6) 16.2 11.7 -14.4 H [facility] CenterPlatelet Kynkx6410-08-98 11:44:00* Test Item Value Reference Range Interpretation Comments Platelet Count (test code = 777-3) 170 140-360 [facility] CenterNeutrophils (%) (Auto)2018-08-09 11:44:00 * Test Item Value Reference Range Interpretation Comments Neutrophils (%) (Auto) (test code = 76831-1) 66.6 38.7-80.0 [facility] CenterLymphocytes (%) (Auto)2018-08-09 11:44:00 * Test Item Value Reference Range Interpretation Comments Lymphocytes (%) (Auto) (test code = 736-9) 21.9 18.0-39.1 [facility] CenterMonocytes (%) (Auto)2018-08-09 11:44:00* Test Item Value Reference Range Interpretation Comments Monocytes (%) (Auto) (test code = 5905-5) 8.3 4.4-11.3 [facility] CenterEosinophils (%) (Auto)2018-08-09 11:44:00 * Test Item Value Reference Range Interpretation Comments Eosinophils (%) (Auto) (test code = 713-8) 2.5 0.0-6.0 [facility] CenterBasophils (%) (Auto)2018-08-09 11:44:00* Test Item Value Reference Range Interpretation Comments Basophils (%) (Auto) (test code = 706-2) 0.4 0.0-1.0 [facility] CenterIM GRANULOCYTES %2018-08-09 11:44:00* Test Item Value Reference Range Interpretation Comments IM GRANULOCYTES % (test code = IM GRANULOCYTES %) 0.3 0.0- 1.0 [facility] CenterNeutrophils # (Auto)2018-08-09 11:44:00* Test Item Value Reference Range Interpretation Comments Neutrophils # (Auto) (test code = 751-8) 4.5 2.1-6.9 [facility] CenterLymphocytes # (Auto)2018-08-09 11:44:00* Test Item Value Reference Range Interpretation Comments Lymphocytes # (Auto) (test code = 79326-2) 1.5 1.0-3.2 [facility] CenterMonocytes # (Auto)2018-08-09 11:44:00* Test Item Value Reference Range Interpretation Comments Monocytes # (Auto) (test code = 742-7) 0.6 0.2-0.8 [facility] CenterEosinophils # (Auto)2018-08-09 11:44:00* Test Item Value Reference Range Interpretation Comments Eosinophils # (Auto) (test code = 711-2) 0.2 0.0-0.4 [facility] CenterBasophils # (Auto)2018-08-09 11:44:00* Test Item Value Reference Range Interpretation Comments Basophils # (Auto) (test code = 704-7) 0.0 0.0-0.1 [facility] CenterAbsolute Immature Granulocyte (auto 2018-08-09 11:44:00* Test Item Value Reference Range Interpretation Comments Absolute Immature Granulocyte (auto (ele t code = Absolute Immature Granulocyte (auto) 0.02 0-0.1 [facility] CenterWhite Blood Wyroa9420-96-91 11:44:00* Test Item Value Reference Range Interpretation Comments White Blood Count (test code = 6690-2) 6.76 4.8-10.8 [facility] CenterRed Blood Vnroc1720-72-25 11:44:00* Test Item Value Reference Range Interpretation Comments Red Blood Count (test code = 789-8) 5.19 4.3-5.7 [facility] CenterHemoglobin2019-06-27 11:44:00* Test Item Value Reference Range Interpretation Comments Hemoglobin (test code = 84488-5) 14.7 14.0-18.0 [facility] CenterHematocrit2019-06-27 11:44:00* Test Item Value Reference Range Interpretation Comments Hematocrit (test code = 4544-3) 45.5 38.2-49.6 [facility] CenterMean Corpuscular Dvltsh8625-27-26 11:44:00* Test Item Value Reference Range Interpretation Comments Mean Corpuscular Volume (test code = 787-2) 87.7 81-99 [facility] CenterMean Corpuscular Smaplkgwkv5005-32-24 11:44:00* Test Item Value Reference Range Interpretation Comments Mean Corpuscular Hemoglobin (test code = 785-6) 28.3 28-32 [facility] CenterMean Corpuscular Hemoglobin Concent 2018-08-09 11:44:00* Test Item Value Reference Range Interpretation Comments Mean Corpuscular Hemoglobin Concent (test code = 786-4) 32.3 31-35 [facility] CenterRed Cell Distribution Apvvc9490-65-84 11:44:00* Test Item Value Reference Range Interpretation Comments Red Cell Distribution Width (test code = 24366-3) 16.2 11.7 -14.4 H [facility] CenterPlatelet Tkwue3245-10-01 11:44:00* Test Item Value Reference Range Interpretation Comments Platelet Count (test code = 777-3) 170 140-360 [facility] CenterNeutrophils (%) (Auto)2018-08-09 11:44:00 * Test Item Value Reference Range Interpretation Comments Neutrophils (%) (Auto) (test code = 49975-0) 66.6 38.7-80.0 [facility] CenterLymphocytes (%) (Auto)2018-08-09 11:44:00 * Test Item Value Reference Range Interpretation Comments Lymphocytes (%) (Auto) (test code = 736-9) 21.9 18.0-39.1 [facility] CenterMonocytes (%) (Auto)2018-08-09 11:44:00* Test Item Value Reference Range Interpretation Comments Monocytes (%) (Auto) (test code = 5905-5) 8.3 4.4-11.3 [facility] CenterEosinophils (%) (Auto)2018-08-09 11:44:00 * Test Item Value Reference Range Interpretation Comments Eosinophils (%) (Auto) (test code = 713-8) 2.5 0.0-6.0 [facility] CenterBasophils (%) (Auto)2018-08-09 11:44:00* Test Item Value Reference Range Interpretation Comments Basophils (%) (Auto) (test code = 706-2) 0.4 0.0-1.0 [facility] CenterIM GRANULOCYTES %2018-08-09 11:44:00* Test Item Value Reference Range Interpretation Comments IM GRANULOCYTES % (test code = IM GRANULOCYTES %) 0.3 0.0- 1.0 [facility] CenterNeutrophils # (Auto)2018-08-09 11:44:00* Test Item Value Reference Range Interpretation Comments Neutrophils # (Auto) (test code = 751-8) 4.5 2.1-6.9 [facility] CenterLymphocytes # (Auto)2018-08-09 11:44:00* Test Item Value Reference Range Interpretation Comments Lymphocytes # (Auto) (test code = 13864-1) 1.5 1.0-3.2 [facility] CenterMonocytes # (Auto)2018-08-09 11:44:00* Test Item Value Reference Range Interpretation Comments Monocytes # (Auto) (test code = 742-7) 0.6 0.2-0.8 [facility] CenterEosinophils # (Auto)2018-08-09 11:44:00* Test Item Value Reference Range Interpretation Comments Eosinophils # (Auto) (test code = 711-2) 0.2 0.0-0.4 [facility] CenterBasophils # (Auto)2018-08-09 11:44:00* Test Item Value Reference Range Interpretation Comments Basophils # (Auto) (test code = 704-7) 0.0 0.0-0.1 [facility] CenterAbsolute Immature Granulocyte (auto 2018-08-09 11:44:00* Test Item Value Reference Range Interpretation Comments Absolute Immature Granulocyte (auto (ele t code = Absolute Immature Granulocyte (auto) 0.02 0-0.1 [facility] CenterBASIC METABOLIC NRABE9646-96-91 16:07:00 * Test Item Value Reference Range Interpretation Comments SODIUM (test code = NA) 139 mmol/L 135-148 N POTASSIUM (test code = K) 4.2 mmol/L 3.5-5.1 N CHLORIDE (test code = CL) 98 mmol/L 101-109 L CARBON DIOXIDE (test code = CO2) 33.6 mmol/L 21-32 H ANION GAP (test code = GAP) 12 mmol/L 10-20 N GLUCOSE (test code = GLU) 77 mg/dL 74-106 N BLOOD UREA NITROGEN (test code = BUN) 12 mg/dL 3-21 N GLOMERULAR FILTRATION RATE (test code = GFR) > 60 mL/min >=60 Estimated GFR by using Modified MDRD formula.Chronic kidney disease is defined as either kidney damageor GFR <60 mL/min/1.73 m2 for >3 months. CREATININE (test code = CREAT) 0.93 mg/dL 0.55-1.3 N BUN/CREATININE RATIO (test code = BUN/CREA) 12.9 10-20 N CALCIUM (test code = CA) 8.3 mg/dL 8.4-10.2 L CBC W/O [id number] 15:50:00* Test Item Value Reference Range Interpretation Comments WHITE BLOOD CELL (test code = WBC) 5.9 K/mm3 4.5-12.5 N RED BLOOD CELL (test code = RBC) 5.22 mill/mm3 4.0-5.8 N HEMOGLOBIN (test code = HGB) 14.5 gram/dL 13.0-17.5 N HEMATOCRIT (test code = HCT) 47.6 % 42.0-52.0 N MEAN CELL VOLUME (test code = MCV) 91.2 fL 80-98 N MEAN CELL HGB (test code = MCH) 27.8 picogram 27.0-33.0 N MEAN CELL HGB CONCETRATION (test code = MCHC) 30.5 gram/dL 33.0-36. 0 L RED CELL DISTRIBUTION WIDTH (test code = RDW) 15.6 % 11.6-16. 2 N RED CELL DISTRIBUTION WIDTH SD (test code = RDW-SD) 52.4 fL 37 .0-51.0 H PLATELET COUNT (test code = PLT) 173 K/mm3 150-450 N MEAN PLATELET VOLUME (test code = MPV) 9.4 fL 6.7-11.0 N Blood Wbrzieq5787-96-01 21:55:00* Test Item Value Reference Range Interpretation Comments Blood Culture (test code = 13087541) NO GROWTH AFTER 5 DAYS, FINAL REPORT [facility] CenterBlood Crjbocy3121-49-53 21:55:00* Test Item Value Reference Range Interpretation Comments Blood Culture (test code = 48411298) NO GROWTH AFTER 5 DAYS, FINAL REPORT [facility] CenterUrine Legionella Tuyfoee3551-45-10 08:09:00* Test Item Value Reference Range Interpretation Comments Urine Legionella Antigen (test code = 31950-9) Negative Negativ e Presumptive negative for L. pneumophila serogroup 1 antigenin urine, suggesting no recent or current infection.Legionnaires' disease cannot be ruled out since o therserogroups and species may also cause disease.Performed at: [facility] [address] [place], [place] [id number] Director: Jen Encarnacion MD, Phone: [phone] [facility] CenterUrine Legionella Wmufjhp2986-31-45 08:09:00* Test Item Value Reference Range Interpretation Comments Urine Legionella Antigen (test code = 14593-4) Negative Negativ e Presumptive negative for L. pneumophila serogroup 1 antigenin urine, suggesting no recent or current infection.Legionnaires' disease cannot be ruled out since o therserogroups and species may also cause disease.Performed at: [facility] [address] [place] [id number] Director: Jen Encarnacion MD, Phone: [phone] [facility] Regional Medical CenterUrine Legionella Eivdprc8982-80-16 08:09:00* Test Item Value Reference Range Interpretation Comments Urine Legionella Antigen (test code = 37615-5) Negative Negativ e Presumptive negative for L. pneumophila serogroup 1 antigenin urine, suggesting no recent or current infection.Legionnaires' disease cannot be ruled out since o therserogroups and species may also cause disease.Performed at: - [facility] [id number] [place], [place] [address] Director: Jen Encarnacion MD, Phone: [phone] [facility] Regional Medical CenterBlood Culture 2018-02-02 21:55:00* Test Item Value Reference Range Interpretation Comments Blood Culture (test code = 52432694) NO GROWTH AFTER 72 HOURS [facility]odium Hlkty9554-73-14 06:30:00* Test Item Value Reference Range Interpretation Comments Sodium Level (test code = 2951-2) 136 136-145 [facility] CenterPotassium Hancd1615-80-80 06:30:00* Test Item Value Reference Range Interpretation Comments Potassium Level (test code = 2823-3) 4.7 3.5-5.1 [facility] CenterChloride Xsmdu7053-44-29 06:30:00* Test Item Value Reference Range Interpretation Comments Chloride Level (test code = 2075-0) 98 98-107 [facility] CenterCarbon Dioxide Gjlxt4706-91-77 06:30:00* Test Item Value Reference Range Interpretation Comments Carbon Dioxide Level (test code = 2028-9) 31 22-29 H [facility] CenterAnion Udn1610-85-66 06:30:00* Test Item Value Reference Range Interpretation Comments Anion Gap (test code = 57656-3) 11.7 8-16 [facility] CenterBlood Urea Auqbecvz4998-37-64 06:30:00* Test Item Value Reference Range Interpretation Comments Blood Urea Nitrogen (test code = 3094-0) 20 7-26 [facility] CenterCreatinine2018-12-21 06:30:00* Test Item Value Reference Range Interpretation Comments Creatinine (test code = 2160-0) 0.73 0.72-1.25 [facility] CenterBUN/Creatinine Umsay0528-45-21 06:30:00* Test Item Value Reference Range Interpretation Comments BUN/Creatinine Ratio (test code = 3097-3) 27 6-25 H [facility] CenterEstimat Glomerular Filtration Rate 2018-02-02 06:30:00* Test Item Value Reference Range Interpretation Comments Estimat Glomerular Filtration Rate (test code = 101449091) > 60 >60 Ranges were taken from the National Kidney Disease Education Program and the [facility] literature.Reference ranges:60 or greater: Gaxfnc35-93 ( for 3 consecutive months): Chronic kidney disease 15 or less: Kidney failureCHI Las Palmas Medical CenterGlucose Scrlg5276-80-03 06:30:00* Test Item Value Reference Range Interpretation Comments Glucose Level (test code = TBE3806) 125 74-118 H [facility] CenterCalcium Dcjxq8748-70-30 06:30:00* Test Item Value Reference Range Interpretation Comments Calcium Level (test code = 88391-9) 9.2 8.4-10.2 [facility] CenterTotal Zspqvxcxi3910-67-26 06:30:00* Test Item Value Reference Range Interpretation Comments Total Bilirubin (test code = 1975-2) 0.3 0.2-1.2 [facility] CenterAspartate Amino Transf (AST/SGOT) 2018-02-02 06:30:00* Test Item Value Reference Range Interpretation Comments Aspartate Amino Transf (AST/SGOT) (test code = Aspartate Amino Transf (AST/SGOT)) 19 5-34 [facility] CenterAlanine Aminotransferase (ALT/SGPT) 2018-02-02 06:30:00* Test Item Value Reference Range Interpretation Comments Alanine Aminotransferase (ALT/SGPT) (test code = 1742-6) 25 0-55 [facility] CenterTotal Czuptzi2762-77-44 06:30:00* Test Item Value Reference Range Interpretation Comments Total Protein (test code = 2885-2) 6.0 6.5-8.1 L [facility] CenterAlbumin2018-12-21 06:30:00* Test Item Value Reference Range Interpretation Comments Albumin (test code = 1751-7) 2.6 3.5-5.0 L [facility] CenterGlobulin2018-12-21 06:30:00* Test Item Value Reference Range Interpretation Comments Globulin (test code = 58256-9) 3.4 2.3-3.5 [facility] CenterAlbumin/Globulin Nodjf5310-94-17 06:30:00 * Test Item Value Reference Range Interpretation Comments Albumin/Globulin Ratio (test code = 1759-0) 0.8 0.8-2.0 [facility] CenterAlkaline Kkvjgrggkpe3141-57-81 06:30:00* Test Item Value Reference Range Interpretation Comments Alkaline Phosphatase (test code = 6768-6) 59 40-150 [facility] CenterWhite Blood Hyfsa7672-75-28 06:25:00* Test Item Value Reference Range Interpretation Comments White Blood Count (test code = 6690-2) 8.19 4.8-10.8 [facility] CenterRed Blood Rhbxf4322-19-58 06:25:00* Test Item Value Reference Range Interpretation Comments Red Blood Count (test code = 789-8) 4.05 4.3-5.7 L [facility] CenterHemoglobin2018-12-21 06:25:00* Test Item Value Reference Range Interpretation Comments Hemoglobin (test code = 34973-3) 11.0 14.0-18.0 L [facility] CenterHematocrit2018-12-21 06:25:00* Test Item Value Reference Range Interpretation Comments Hematocrit (test code = 4544-3) 36.4 38.2-49.6 L [facility] CenterMean Corpuscular Gvykvy6277-66-87 06:25:00* Test Item Value Reference Range Interpretation Comments Mean Corpuscular Volume (test code = 787-2) 89.9 81-99 [facility] CenterMean Corpuscular Aeuqjccxgo1700-27-08 06:25:00* Test Item Value Reference Range Interpretation Comments Mean Corpuscular Hemoglobin (test code = 785-6) 27.2 28-32 L [facility] CenterMean Corpuscular Hemoglobin Concent 2018-02-02 06:25:00* Test Item Value Reference Range Interpretation Comments Mean Corpuscular Hemoglobin Concent (test code = 786-4) 30.2 31-35 L [facility] CenterRed Cell Distribution Hqyqs5186-04-24 06:25:00* Test Item Value Reference Range Interpretation Comments Red Cell Distribution Width (test code = 66401-3) 14.6 11.7 -14.4 H [facility] CenterPlatelet Otwzx5801-87-96 06:25:00* Test Item Value Reference Range Interpretation Comments Platelet Count (test code = 777-3) 327 140-360 [facility] CenterNeutrophils (%) (Auto)2018-02-02 06:25:00 * Test Item Value Reference Range Interpretation Comments Neutrophils (%) (Auto) (test code = 48402-0) 84.6 38.7-80.0 H [facility] CenterLymphocytes (%) (Auto)2018-02-02 06:25:00 * Test Item Value Reference Range Interpretation Comments Lymphocytes (%) (Auto) (test code = 736-9) 11.6 18.0-39.1 L [facility] CenterMonocytes (%) (Auto)2018-02-02 06:25:00* Test Item Value Reference Range Interpretation Comments Monocytes (%) (Auto) (test code = 5905-5) 3.1 4.4-11.3 L [facility] CenterEosinophils (%) (Auto)2018-02-02 06:25:00 * Test Item Value Reference Range Interpretation Comments Eosinophils (%) (Auto) (test code = 713-8) 0.0 0.0-6.0 [facility] CenterBasophils (%) (Auto)2018-02-02 06:25:00* Test Item Value Reference Range Interpretation Comments Basophils (%) (Auto) (test code = 706-2) 0.0 0.0-1.0 [facility] CenterIM GRANULOCYTES %2018-02-02 06:25:00* Test Item Value Reference Range Interpretation Comments IM GRANULOCYTES % (test code = IM GRANULOCYTES %) 0.7 0.0- 1.0 [facility] CenterNeutrophils # (Auto)2018-02-02 06:25:00* Test Item Value Reference Range Interpretation Comments Neutrophils # (Auto) (test code = 751-8) 6.9 2.1-6.9 [facility] CenterLymphocytes # (Auto)2018-02-02 06:25:00* Test Item Value Reference Range Interpretation Comments Lymphocytes # (Auto) (test code = 34105-1) 1.0 1.0-3.2 [facility] CenterMonocytes # (Auto)2018-02-02 06:25:00* Test Item Value Reference Range Interpretation Comments Monocytes # (Auto) (test code = 742-7) 0.3 0.2-0.8 [facility] CenterEosinophils # (Auto)2018-02-02 06:25:00* Test Item Value Reference Range Interpretation Comments Eosinophils # (Auto) (test code = 711-2) 0.0 0.0-0.4 [facility] CenterBasophils # (Auto)2018-02-02 06:25:00* Test Item Value Reference Range Interpretation Comments Basophils # (Auto) (test code = 704-7) 0.0 0.0-0.1 [facility] CenterAbsolute Immature Granulocyte (auto 2018-02-02 06:25:00* Test Item Value Reference Range Interpretation Comments Absolute Immature Granulocyte (auto (ele t code = Absolute Immature Granulocyte (auto) 0.06 0-0.1 [facility] CenterCT CHEST Y3804-99-29 16:05:00 [place] [address] Patient Name: AARON DAVID MR #: [id number] : 1940 Age/Sex: 77/M Req #: [id number] Adm Physician: SOPHIE ZARCO MD Ordered by: SOPHIE ZARCO MD Report #: [id number] Location: MED/SURG Room/Bed: [facility] Procedure: [id number] CT/CT CHEST W Exam Date: 01/31/18 Exam Time: 1540 REPORT STATUS: Signed EXAM: CT Chest WITH contrast INDICATION: Shortness of breath/pneumonia COMPARISON: 01/30/2018 radiograph, no report available TECHNIQUE: The Chest was scanne d utilizing a multidetector helical scanner after administration of IV contras t. Coronal and sagittal reformations were obtained. IV CONTR AST: 100 mL Isovue-370 COMPLICATIONS: None RADIATION DOSE: Total DLP: 583 mGy*cm Estimated effective dose: (DLP x 0.015 x size factor) mSv CTDIvol has been reviewed. It is below the limits set by the Radiation Protocol Committee (RPC). Appropriate CT dose reduction tin hniques were utilized. FINDINGS: Lines and Tubes: None. Lower Neck: No acute findings. Heart and Great Vessels: The aorta and main pulmo nary artery measure 36 and 30 mm. respectively. Advanced vascular calcificati ons. No pericardial effusion. Lymph Nodes: No suspicious adenopathy. Lungs: No pneumothorax. Trachea and central bronchi are unremarkable. There is mild scattered peripheral bronchial wall thickening. Moderate centrilobular emphysematous changes are present. Scattered bilateral patchy alveolar opaciti es are present in all 5 lobes. Minimal mucus present in the trachea. Upper abdomen: Nodularity left adrenal gland. Bones and Soft Tissues: No acute f indings. IMPRESSION: 1. Scattered bilateral alveolar opacities suggest ing multifocal pneumonia superimposed on moderate emphysematous changes. Signed by: Dr. Mj Brandon MD on 01/31/2018 4:09 PM Dictated By: MJ BRANDON MD [id number] Trans cribed By: ALLAN on 01/31/18 1602 COPY TO: SOPHIE ZARCO MD Urine NCT3417-82-61 15:51:00* Test Item Value Reference Range Interpretation Comments Urine WBC (test code = 5821-4) NONE 0-5 [facility] CenterUrine UPX0185-75-02 15:51:00* Test Item Value Reference Range Interpretation Comments Urine RBC (test code = 21830-9) NONE 0-5 [facility] CenterUrine Qjwtnazb0562-33-04 15:51:00* Test Item Value Reference Range Interpretation Comments Urine Bacteria (test code = 86944-9) MODERATE NONE H [facility] CenterUrine Epithelial Yxumk5703-26-01 15:51:00 * Test Item Value Reference Range Interpretation Comments Urine Epithelial Cells (test code = 30427-4) FEW NONE [facility] CenterUrine FGS2580-40-74 15:51:00* Test Item Value Reference Range Interpretation Comments Urine WBC (test code = 5821-4) NONE 0-5 [facility] CenterUrine KYV1534-88-19 15:51:00* Test Item Value Reference Range Interpretation Comments Urine RBC (test code = 26143-5) NONE 0-5 [facility] CenterUrine Gjcjettp1371-39-05 15:51:00* Test Item Value Reference Range Interpretation Comments Urine Bacteria (test code = 99298-1) MODERATE NONE H [facility] CenterUrine Epithelial Yavni8544-24-90 15:51:00 * Test Item Value Reference Range Interpretation Comments Urine Epithelial Cells (test code = 75897-7) FEW NONE [facility] CenterUrine JPC2664-14-88 15:51:00* Test Item Value Reference Range Interpretation Comments Urine WBC (test code = 5821-4) NONE 0-5 [facility] CenterUrine VKZ5308-23-73 15:51:00* Test Item Value Reference Range Interpretation Comments Urine RBC (test code = 30103-7) NONE 0-5 [facility] CenterUrine Uuachhpi6520-69-04 15:51:00* Test Item Value Reference Range Interpretation Comments Urine Bacteria (test code = 54661-5) MODERATE NONE H [facility] CenterUrine Epithelial Gtplm0046-84-19 15:51:00 * Test Item Value Reference Range Interpretation Comments Urine Epithelial Cells (test code = 33164-8) FEW NONE [facility] CenterUrine Xcgbt5716-94-70 15:43:00* Test Item Value Reference Range Interpretation Comments Urine Color (test code = 5778-6) YELLOW YELLOW [facility] CenterUrine Merajeo0524-94-94 15:43:00* Test Item Value Reference Range Interpretation Comments Urine Clarity (test code = 91493-5) SL CLOUDY CLEAR H [facility] CenterUrine Specific Irifuea2178-58-79 15:43:00 * Test Item Value Reference Range Interpretation Comments Urine Specific [place] (test code = 5811-5) 1.030 1.010-1.02 5 H [facility] CenterUrine fM2194-23-74 15:43:00* Test Item Value Reference Range Interpretation Comments Urine pH (test code = 50328-9) 6 5-7 [facility] CenterUrine Leukocyte Frhymamd1655-70-76 15:43:00* Test Item Value Reference Range Interpretation Comments Urine Leukocyte Esterase (test code = 5799-2) NEGATIVE NEGATIVE [facility] CenterUrine Qpuzfri4146-59-24 15:43:00* Test Item Value Reference Range Interpretation Comments Urine Nitrite (test code = 47444-4) NEGATIVE NEGATIVE [facility] CenterUrine Jxqhosu3328-50-01 15:43:00* Test Item Value Reference Range Interpretation Comments Urine Protein (test code = 5804-0) NEGATIVE NEGATIVE [facility] CenterUrine Glucose (UA)2018-01-31 15:43:00* Test Item Value Reference Range Interpretation Comments Urine Glucose (UA) (test code = 2349-9) 2+ NEGATIVE H [facility] CenterUrine Yqbnife9276-93-62 15:43:00* Test Item Value Reference Range Interpretation Comments Urine Ketones (test code = 10772-5) NEGATIVE NEGATIVE [facility] Qouubqqrqaxn8957-47-50 15:43:00* Test Item Value Reference Range Interpretation Comments Urine Urobilinogen (test code = 83877-8) 1 0.2-1 [facility] Vnoptuctg8255-88-71 15:43:00* Test Item Value Reference Range Interpretation Comments Urine Bilirubin (test code = 1978-6) NEGATIVE NEGATIVE [facility] CenterU[facility] Jbpvj1093-49-21 15:43:00* Test Item Value Reference Range Interpretation Comments Urine Blood (test code = 32331-6) NEGATIVE NEGATIVE [facility] CenterUrine Aftxm7410-43-02 15:43:00* Test Item Value Reference Range Interpretation Comments Urine Color (test code = 5778-6) YELLOW YELLOW [facility] CenterUrine Irulpxi2969-80-50 15:43:00* Test Item Value Reference Range Interpretation Comments Urine Clarity (test code = 09414-4) SL CLOUDY CLEAR H [facility] CenterUrine Specific Rayezzp7938-87-21 15:43:00 * Test Item Value Reference Range Interpretation Comments Urine Specific [place] (test code = 5811-5) 1.030 1.010-1.02 5 H [facility] CenterUrine sX6453-68-14 15:43:00* Test Item Value Reference Range Interpretation Comments Urine pH (test code = 62981-4) 6 5-7 [facility] CenterU[facility] Leukocyte Bpvoppyu1810-63-86 15:43:00* Test Item Value Reference Range Interpretation Comments Urine Leukocyte Esterase (test code = 5799-2) NEGATIVE NEGATIVE [facility] CenterU[facility] Xycckuj2312-74-53 15:43:00* Test Item Value Reference Range Interpretation Comments Urine Nitrite (test code = 49934-5) NEGATIVE NEGATIVE [facility] CenterU[facility] Lojdorn8582-60-16 15:43:00* Test Item Value Reference Range Interpretation Comments Urine Protein (test code = 5804-0) NEGATIVE NEGATIVE [facility] CenterU[facility] Glucose (UA)2018-01-31 15:43:00* Test Item Value Reference Range Interpretation Comments Urine Glucose (UA) (test code = 2349-9) 2+ NEGATIVE H [facility] CenterUrine Wblbbyz9762-58-59 15:43:00* Test Item Value Reference Range Interpretation Comments Urine Ketones (test code = 43980-1) NEGATIVE NEGATIVE [facility] CenterU[facility] Iaeklgdbwyij0077-97-59 15:43:00* Test Item Value Reference Range Interpretation Comments Urine Urobilinogen (test code = 23625-4) 1 0.2-1 [facility] CenterU[facility] Ofqrbfwwo2817-47-61 15:43:00* Test Item Value Reference Range Interpretation Comments Urine Bilirubin (test code = 1978-6) NEGATIVE NEGATIVE [facility] CenterU[facility] Jgffw4065-65-56 15:43:00* Test Item Value Reference Range Interpretation Comments Urine Blood (test code = 80107-2) NEGATIVE NEGATIVE [facility] CenterU[facility] Hrzdr5797-11-28 15:43:00* Test Item Value Reference Range Interpretation Comments Urine Color (test code = 5778-6) YELLOW YELLOW [facility] CenterU[facility] Qikmkip1872-41-30 15:43:00* Test Item Value Reference Range Interpretation Comments Urine Clarity (test code = 27873-8) SL CLOUDY CLEAR H [facility] CenterUrine Specific Epsfqnk6165-65-14 15:43:00 * Test Item Value Reference Range Interpretation Comments Urine Specific [place] (test code = 5811-5) 1.030 1.010-1.02 5 H [facility] CenterUrine gG9348-98-47 15:43:00* Test Item Value Reference Range Interpretation Comments Urine pH (test code = 01504-7) 6 5-7 [facility] CenterU[facility] Leukocyte Mhlzbsbc0293-03-39 15:43:00* Test Item Value Reference Range Interpretation Comments Urine Leukocyte Esterase (test code = 5799-2) NEGATIVE NEGATIVE [facility] CenterU[facility] Qaiccba4173-08-66 15:43:00* Test Item Value Reference Range Interpretation Comments Urine Nitrite (test code = 15924-6) NEGATIVE NEGATIVE [facility] CenterU[facility] Jztrbbj5503-17-96 15:43:00* Test Item Value Reference Range Interpretation Comments Urine Protein (test code = 5804-0) NEGATIVE NEGATIVE [facility] CenterUrine Glucose (UA)2018-01-31 15:43:00* Test Item Value Reference Range Interpretation Comments Urine Glucose (UA) (test code = 2349-9) 2+ NEGATIVE H [facility] CenterUrine Plguqld0131-60-79 15:43:00* Test Item Value Reference Range Interpretation Comments Urine Ketones (test code = 76477-7) NEGATIVE NEGATIVE [facility] CenterU[facility] Vdcfdkgdrtiu4267-44-65 15:43:00* Test Item Value Reference Range Interpretation Comments Urine Urobilinogen (test code = 74211-7) 1 0.2-1 [facility] CenterU[facility] Rclyqjnhx6203-85-48 15:43:00* Test Item Value Reference Range Interpretation Comments Urine Bilirubin (test code = 1978-6) NEGATIVE NEGATIVE [facility] CenterU[facility] Tuxvs4845-42-98 15:43:00* Test Item Value Reference Range Interpretation Comments Urine Blood (test code = 79124-1) NEGATIVE NEGATIVE [facility] CenterInfluenza Virus Types A,B Antigen 2018-01-31 09:57:00* Test Item Value Reference Range Interpretation Comments Influenza Virus Types A,B Antigen (test code = 02265-6) NEGATIVE NEGATIVE [facility] CenterInfluenza Virus Types A,B Antigen 2018-01-31 09:57:00* Test Item Value Reference Range Interpretation Comments Influenza Virus Types A,B Antigen (test code = 95870-4) NEGATIVE NEGATIVE [facility] CenterInfluenza Virus Types A,B Antigen 2018-01-31 09:57:00* Test Item Value Reference Range Interpretation Comments Influenza Virus Types A,B Antigen (test code = 65357-2) NEGATIVE NEGATIVE [facility] CenterCHEST 2 RPDCT2807-59-64 21:49:00 [facility] [address] [place] [address] Patient Name: AARON DAVID MR #: [id number] : 1940 Age/Sex: 77/M Req #: [id number] Adm Physician: SOPHIE ZARCO MD Ordered by: SOPHIE ZARCO MD Report #: [id number] Location: MED/SURG Room/Bed: [facility] Procedure: [id number] DX/CH EST 2 VIEWS Exam Date: 01/30/18 Exam Time: 2101 REPORT STATUS: Signed CHEST 2 VIEWS, Technique: CHEST 2 VIEWS Comparison: None Clinical history: COPD exacerbation DISCUSSION: Normal heart size. Prominent tab which may be related to pulmonary arterial hypertension. Hyperinflation with multifocal opa cities for example at the lung bases and right middle lobe/lingula. No signifi cant effusion. No pneumothorax. IMPRESSION: Emphysema with multifocal pne umonia. Recommend 6-8 week follow-up. Signed by: Dr Zain Rodriguez MD on 9:50 PM Dictated By: ZAIN RODRIGUEZ MD 49 Transcribed By: ALLAN on 01/30/182149 COPY TO: SOPHIE ZARCO MD
[2019-09-16 10:35] LABS: ALANINE AMINOTRANSFERASE 10 IU/L (0-55); ALBUMIN 3.4 g/dL (3.5-5.0); ALBUMIN/GLOBULIN RATIO 1.1 (0.8-2.0); ALKALINE PHOSPHATASE 62 IU/L (40-150); ANION GAP 12.1 mmol/L (8-16); BLOOD UREA NITROGEN 17 mg/dL (7-26); BUN/CREATININE RATIO 25 (6-25); CALCIUM 9.7 mg/dL (8.4-10.2); CHLORIDE 97 mmol/L (98-107); CREATININE, SERUM 0.69 mg/dL (0.72-1.25); EST GLOMERULAR FILTRATION RATE > 60 ML/MIN (60-); GLUCOSE 100 mg/dL (74-118); POTASSIUM 5.1 mmol/L (3.5-5.1); SODIUM 149 mmol/L (136-145)
[2019-09-16 10:43] LABS: CARBON DIOXIDE 45 mmol/L (22-29)
--- NOTE | 2019-09-16 11:02 | NUR ---
respiratory called to initiate bipap
--- NOTE | 2019-09-16 11:12 | Diagnostic Imaging Report ---
EXAMINATION: CHEST SINGLE (PORTABLE) INDICATION: Shortness of breath COMPARISON: Chest CT of 01/31/2018, chest radiograph 01/30/2018 FINDINGS: LINES/TUBES:EKG leads overlie the chest. LUNGS:The lungs are well-inflated. Patchy left greater than right lower lung airspace opacities. PLEURA:No pleural effusion or pneumothorax. MEDIASTINUM:The cardiomediastinal silhouette appears unchanged in size and shape. Atherosclerotic calcifications of the thoracic aorta. BONES/SOFT TISSUES:No acute osseous injury. ABDOMEN:No free air under the diaphragm. IMPRESSION: Left greater than right lower lung patchy airspace opacities may represent pneumonia in the proper clinical setting. Signed by: Emmy Edouard MD on 09/16/2019 11:09 AM
[2019-09-16] MEDS ORDERED: ALBUTEROL SULFATE HFA 8GM INHALATION AEROSOL INH PRN (11:30)
[2019-09-16] MEDS ORDERED: PIPERACILLIN/TAZO 4.5 GM 100 ML IV ONE (11:30)
[2019-09-16] MEDS ORDERED: VANCOMYCIN 1GM/NS 250 ML 250 ML IV ONE (11:45)
--- NOTE | 2019-09-16 12:00 | NUR ---
Per MD patient will not be placed on bipap
--- NOTE | 2019-09-16 12:48 | NUR ---
attempted to straight cath patient in order to get a urine sample. Straight cath unsuccessful. Will notify
--- NOTE | 2019-09-16 14:17 | NUR ---
attempted to call report was told to call back.
[2019-09-16 14:49] VITALS: BP 153/85
--- NOTE | 2019-09-17 06:46 | Emergency Department Note ---
History of Present Illnes History of Present Illness Chief Complaint: Respiratory History of Present Illness This is a 78 year old male presents for shortness of breath. Patient was recently admitted for COPD. He states symptoms have been progressively getting worse. Has been using his medications at home. He states his symptoms are consistent with his COPD exacerbations. He usually uses 3-5 L at home and has not required much more than this. Per EMS he was saturating 90% on room air on initial presentation. Arrival Mode: [facility] FORMER: [employer] Required: No Onset (how long ago): day(s) (2) Severity: moderate Onset quality: gradual Duration (how long): day(s) (2) Timing of current episode: constant Progression: waxing and waning Chronicity: recurrent Context: Reports recent illness Relieving factors: medication Exacerbating factors: none Associated symptoms: Reports denies other symptoms Treatments prior to arrival: other (oxygen) Previous service: medications given (Albuterol and 125mg solumedrol) Past Medical/Family History Physician Review I have reviewed the patient's past medical and family history. Any updates have been documented here. Past Medical History Recent Fever: No Clinical Suspicion of Infectio: No New/Unexplained Change in Ment: No Past Medical History: Hypertension, COPD Social History Smoking Cessation: Former smoker Counseling Performed: Yes Alcohol Use: None Any Illegal Drug Use: No TB Exposure/Symptoms: No Physically hurt or threatened: No Family History Family history of heart diseas: Yes Review of Systems Review of Systems Constitutional: Reports no symptoms EENTM: Reports no symptoms Cardiovascular: Reports no symptoms Respiratory: Reports no symptoms, Reports as per HPI, Reports dyspnea, Reports wheezing Gastrointestinal: Reports no symptoms Genitourinary: Reports no symptoms Musculoskeletal: Reports no symptoms Integumentary: Reports no symptoms Neurological: Reports no symptoms Psychological: Reports no symptoms Endocrine: Reports no symptoms Hematological/Lymphatic: Reports no symptoms Physical Exam Related Data Allergies: Coded Allergies: No Known Drug Allergies (Unverified Allergy, Unknown, 01/30/18) Vital signs reviewed: Yes Physical Exam CONSTITUTIONAL Constitutional: Present well-developed, Present well-nourished HENT HENT: Present normocephalic, Present atraumatic, Present oropharynx clear/moist, Present nose normal HENT L/R: Present left ext ear normal, Present right ext ear normal EYES Eyes: Reports PERRL, Reports conjunctivae normal NECK Neck: Present ROM normal PULMONARY Pulmonary: Present effort normal, Present other (Wheezes diffusely) CARDIOVASCULAR Cardiovascular: Present regular rhythm, Present heart sounds normal, Present capillary refill normal, Present normal rate GASTROINTESTINAL Abdominal: Present soft, Present nontender, Present bowel sounds normal GENITOURINARY Genitourinary: Present exam deferred SKIN Skin: Present warm, Present dry MUSCULOSKELETAL Musculoskeletal: Present ROM normal NEUROLOGICAL Neurological: Present alert, Present oriented x 3, Present no gross motor or sensory deficits PSYCHOLOGICAL Psychological: Present mood/affect normal, Present judgement normal Results Laboratory Lab results reviewed: Yes Imaging Imaging results reviewed: Yes Diagnostics Tests Diagnostic test(s) reviewed: Yes Assessment & Plan Medical Decision Making MDM 78-year-old male with history of COPD presenting for concerns over COPD exacerbation. Examination shows diffuse wheezing but otherwise patient is an no current distress and is requiring his home oxygen amount. Initial differential includes pneumonia versus COPD versus CHF. Doubt pulmonary embolus at this time. VBG pH 7.2 and CO2 114. He was given albuterol treatment and was given Solu- Medrol by EMS. Discussed with [facility] will admit for further care of his COPD exacerbation. Patient is appropriate for transfer. Reassessment Reassessment time: 11:00 Reassessment NAD, breathing comfortably Assessment & Plan Final Impression: (1) COPD exacerbation Depart Disposition: TRANS TO OTHER [facility] Home Meds Reported Medications Prednisone (PREDNISONE) 10 Mg Tab, 10 MG PO UD, TAB 02/03/18 Cefdinir (OMNICEF) 300 Mg Capsule, 1 TAB PO BID 02/03/18 Tamsulosin Hcl* (FLOMAX*) 0.4 Mg Cap, 0.4 MG PO DAILY, #30 CAP 02/03/18 Tiotropium [place] (SPIRIVA) 18 Mcg Cap.w.dev, 18 MCG INH, BOTTLE 09/16/14 Froilan Yao MD Sep 16, 2019 10:05
== END 2019-09-16 15:07 | disposition other institution (70) ==
LOC: ER 10:06
DX: R06.02 Shortness of breath (principal); J44.1 Chronic obstructive pulmonary disease with (acute) exacerbation; I10 Essential (primary) hypertension; Z11.59 Encounter for screening for other viral diseases; Z87.891 Personal history of nicotine dependence
CPT/HCPCS: 36415; 71045; 80053; 83605; 83880; 84484; 85025; 93005; 99285; J2543; J3370; U0002